=== PATIENT | female | born 1940 | race Caucasian/White ===

== ENCOUNTER → 2016-11-09 | Outpatient (CLI) | payer OTHER ==
[~2016-11-09] MED LIST: AMLO10TA2 PO; ATEN50TA2 PO; ATOR1TAB21 PO; BIOT10005 PO; BIOT50004 PO; CALC600T21 PO; CALCTAB93 PO; CELE-19 PO; COUM2.5T11 PO; FEOS45TA3 PO; HYDR25TAB PO; LOSA100T36 PO; LUTE20TA PO; MAGN400C2 PO; NATU400T PO; OMEG100011 PO; PERC5TAB6 PO; TYLE325T5 PO; VISION ESSENTIALS PO; VITA500046 PO; calcium with vit D OR
[2016-11-09 11:06] LABS: MEAN CORPUSCULAR HEMOGLOBIN 31.4 pg (27.0-33.0); MEAN CORPUSCULAR HGB CONC 33.3 g/dl (32.0-36.5); MEAN CORPUSCULAR VOLUME 94.2 fl (80.0-96.0); RED CELL DISTRIBUTION WIDTH 13.2 % (11.5-14.5); WHITE BLOOD COUNT 5.7 K/mm3 (4.0-10.0)
[2016-11-09 11:27] LABS: ALBUMIN 3.7 GM/DL (3.2-5.2); ALBUMIN/GLOBULIN RATIO 1.12 (1.00-1.93); ALKALINE PHOSPHATASE 91 U/L (45-117); ALT/SGPT 35 U/L (12-78); ANION GAP 10 MEQ/L (8-16); AST/SGOT 24 U/L (15-37); BILIRUBIN,TOTAL 0.7 MG/DL (0.2-1.0); BLOOD UREA NITROGEN 23 MG/DL (7-18); CALCIUM LEVEL 9.4 MG/DL (8.8-10.2); CARBON DIOXIDE LEVEL 29 MEQ/L (21-32); CHLORIDE LEVEL 105 MEQ/L (98-107); CREATININE FOR GFR 0.91 MG/DL (0.55-1.02); GLOMERULAR FILTRATION RATE > 60.0 (>39); GLUCOSE, FASTING 99 MG/DL (83-110); POTASSIUM SERUM 3.8 MEQ/L (3.5-5.1); SODIUM LEVEL 144 MEQ/L (136-145)
--- NOTE | 2016-11-09 11:28 | REP ---
CHEST, TWO VIEWS: HISTORY: Hypertension. COMPARISON: 02/12/2016. The lungs are clear. The heart is upper limits of normal in size. Calcified granuloma are present in the right hilum. The pulmonary vasculature is normal in appearance. Degenerative change is present in the thoracic spine. IMPRESSION: No acute disease. Signed by Hardik Fernandez MD 11/09/2016 11:47 A
--- NOTE | 2016-11-09 22:16 | ECGEPIP ---
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
== END ==
LOC: M ADMPAT 09:16
PROVIDERS: ATTEND Orthopaedic Surgery
DX: Z01.818 Encounter for other preprocedural examination (principal); G47.30 Sleep apnea, unspecified; R03.0 Elevated blood-pressure reading, without diagnosis of hypertension; M19.012 Primary osteoarthritis, left shoulder

== ENCOUNTER 2016-11-23 06:26 | Inpatient (IN) | payer OTHER ==
[2016-11-09 09:44] VITALS: BP 126/69
--- NOTE | 2016-11-19 15:24 | HPE ---
DATE OF ADMISSION: 11/23/2016 HISTORY OF PRESENT ILLNESS: This is a pleasant elderly female with continuing symptomatic left shoulder osteoarthritis. She has consented for a left total shoulder arthroplasty per Dr. Raz Rodriguez. Medical optimization achieved per Dr. Pyle. X-rays are consistent with advanced osteoarthritis. ALLERGIES: LATEX causes her a local reaction and ASPIRIN she is told not to take. CURRENT MEDICATIONS: - losartan 100 mg one by mouth every day - atenolol 50 mg one by mouth every day - amlodipine besylate 10 mg one by mouth every day - vitamin D 5000, one by mouth every day - vitamin E 4000 every day - vitamin A daily - hydrochlorothiazide 25 mg one by mouth every day - [place] 3 1,000 mg PAST MEDICAL HISTORY: Medical problem list includes symptomatic left shoulder osteoarthritis. Hypertension. PAST SURGICAL HISTORY: Includes right total shoulder arthroplasty and right hip arthroplasty. She also had a hysterectomy in 1970. Notes some history of bladder and bowel repair and since that time has had to take magnesium to prevent constipation. She wants to start magnesium the day of surgery as to prevent constipation. SOCIAL HISTORY: Denies smoking, ethanol intake or illicit drugs. FAMILY HISTORY: Family history is positive for arthritis, heart disease, diabetes, and rheumatoid arthritis. REVIEW OF SYSTEMS: Denies chest pain, shortness of breath, dyspnea on exertion, fever, chills, malaise, upper respiratory urinary tract symptoms. PHYSICAL EXAMINATION Height 5 foot, 1-1/2 inches, weight 175 pounds, temperature 98.8. Blood pressure 120/70, pulse 63, respiration 12, BMI 32.5. She is a pleasant overweight white female in no acute distress. She is alert and oriented times three. Mood and affect are appropriate. She is ambulating without overt antalgic assistance or gait disturbance. Normal cephalic. Neck: Supple. Negative JVD or bruits. Left shoulder this is a benign noninfectious looking left upper extremity with limited shoulder range of motion and pain throughout. Radial pulse 2+. Brisk capillary refill Chest rises symmetrically. Lungs: Clear to auscultation. Abdomen: Soft, nontender times four with sound is intact. Lower extremities: No gross deformity. Chest x-ray shows no acute disease as read by Dr. Fernandez on 11/09/2016. EKG shows sinus bradycardia with sinus arrhythmia and first-degree AV block read by Dr. Peters on 11/09/2016. Her labs were reviewed. Nasal and sinus culture showed normal ambrocio. BUN was elevated 23. Otherwise labs were unremarkable. IMPRESSION: 1. Symptomatic left shoulder osteoarthritis: 2. Patient consented for left total shoulder arthroplasty per Dr. Raz Rodriguez. 3. Medical optimization per Dr. Pyle. 4. On-call to the OR 1 gram IV Kefzol in OR. 5. Sequential compression devices (SCD) and thromboembolic deterrent stockings (TEDS) in OR. 6. The patient is requesting magnesium times two, day of surgery postoperatively for prevention of constipation. MTDD
[~2016-11-23] VITALS: Ht 154.9 cm; Wt 77.0 kg
[2016-11-23] VITALS (7 sets, daily range): BP systolic 123–152; BP diastolic 63–73
[2016-11-23] MEDS ORDERED: ACETAMINOPHEN 500 MG TAB PO ONE (06:45)
[2016-11-23] MEDS: LR 1,000 ML IV SCH ×4 (07:34→20:05)
[2016-11-23] MEDS ORDERED: EPINEPHrine INJ 1 MG/ML 1ML VIAL/AMP As Ordered ONE (08:33)
[2016-11-23] MEDS ORDERED: ceFAZolin 1GM INJ (J0690) As Ordered ONE (08:33)
[2016-11-23] MEDS ORDERED: MIDAZOLAM INJ 2 MG/2 ML VIAL (J2250) As Ordered ONE (09:22)
[2016-11-23] MEDS ORDERED: PROPOFOL 200 MG/20 ML VIAL As Ordered ONE (09:22)
[2016-11-23] MEDS ORDERED: fentaNYL 100 MCG/2 ML INJECTION (J3010) As Ordered ONE (09:22)
[2016-11-23] MEDS ORDERED: LIDOCAINE 2% INJ 100 MG/5 ML SDV (FOR ANES.) As Ordered ONE (09:22)
[2016-11-23] MEDS ORDERED: ROCURONIUM BROMIDE 50 MG/5 ML VIAL As Ordered ONE (09:22)
[2016-11-23] MEDS ORDERED: ceFAZolin 1GM INJ (J0690) XX ONE (09:55)
[2016-11-23] MEDS ORDERED: EPINEPHrine 1MG/ML INJ 30ML MD-VIAL XX ONE (09:55)
[2016-11-23] MEDS ORDERED: dexameTHASONE 4 MG/ML 1ML VIAL (J1100) As Ordered ONE ×2 (09:58)
[2016-11-23] MEDS ORDERED: ONDANSETRON 4MG/2ML VIAL (J2405) As Ordered ONE (10:50)
[2016-11-23] MEDS ORDERED: GLYCOPYRROLATE INJ 0.2 MG/ML 2 ML VIAL As Ordered ONE (10:50)
[2016-11-23] MEDS ORDERED: HYDROmorphone HCL 2 MG/ML 1ML VIAL (J1170) As Ordered ONE (10:51)
[2016-11-23] MEDS ORDERED: NEOSTIGMINE 1MG/ML 5 ML SYRINGE (J2710) As Ordered ONE (10:51)
[2016-11-23] MEDS ORDERED: VANCOMYCIN 1000 MG/20 ML VIAL (J3370) As Ordered ONE (11:21)
[2016-11-23] MEDS ORDERED: VANCOMYCIN 1000 MG/20 ML VIAL (J3370) XX ONE (11:23)
[2016-11-23] MEDS ORDERED: MORPHINE PCA 1MG/ML 100ML CADD As Ordered ONE (12:33)
[2016-11-23] MEDS ORDERED: FLEET ENEMA PR PRN (12:45)
[2016-11-23] MEDS ORDERED: LR 1,000 ML IV SCH (12:45)
[2016-11-23] MEDS ORDERED: fentaNYL 100 MCG/2 ML INJECTION (J3010) IV PRN (12:45)
[2016-11-23] MEDS ORDERED: MOM 30ML SUSPENSION UDC PO PRN (12:45)
[2016-11-23] MEDS ORDERED: NALOXONE INJ 0.4 MG/1 ML VIAL (J2310) IV PRN (12:45)
[2016-11-23] MEDS ORDERED: EPIDURAL/PCA KEYS XX PRN (12:45)
[2016-11-23] MEDS ORDERED: NALBUPHINE HCL 10 MG/ML AMP (J2300) IV PRN (12:45)
[2016-11-23] MEDS ORDERED: ACETAMINOPHEN TAB 650MG DOSE (2X325MG) PO PRN (12:45)
[2016-11-23] MEDS ORDERED: ONDANSETRON 4MG/2ML VIAL (J2405) IV PRN ×2 (12:45)
[2016-11-23] MEDS ORDERED: diphenhydrAMINE INJ 50MG/ML VIAL (J1200) IV PRN (12:45)
[2016-11-23] MEDS ORDERED: MORPHINE PCA 1MG/ML 100ML CADD IV PRN (12:45)
[2016-11-23] MEDS: VITAMIN D 1,000 INTERNATIONAL UNITS TABLET PO SCH (15:05)
[2016-11-23] MEDS: hydroCHLOROthiazide 25 MG TAB PO SCH (15:06)
[2016-11-23] MEDS: VITAMIN E 400 INTERNATIONAL UNITS CAP PO SCH (15:06)
[2016-11-23] MEDS: ATORVASTATIN 20 MG TAB PO SCH (15:06)
[2016-11-23] MEDS: CelecoXIB (CeleBREX) 100 MG CAP PO SCH (15:06)
--- NOTE | 2016-11-23 21:02 | CR.PDOC ---
[facility] Consultation Consultation DATE OF CONSULTATION: 11/23/16 - 900PM REASON FOR CONSULTATION/CHIEF COMPLAINT: Presented to the [facility] for an elective left total shoulder arthroplasty because of persistent pain HISTORY OF PRESENT ILLNESS: Patient is a 76 year old female with a PMHx of HTN, DLP and osteoarthritis who presented to [facility] for a scheduled elective arthroplasty of her left shoulder. She noted that she has been having worsening pain of her left shoulder and was not able to have it controlled by medical management alone. ALLERGIES: Please see below. HOME MEDICATIONS: Please see below. 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 [employer] REVIEW OF SYSTEMS: Constitutional: Denies weight loss, change in appetite, or recent trauma Eyes: No visual changes or eye pain Ears, Nose, Throat: Denies nose bleeds, or difficulty swallowing Cardiovascular: Denies chest pain, sweating, or orthopnea Respiratory: Denies cough, wheezing, or shortness of breath GI: Jack nausea, vomiting, abdominal pain, diarrhea, Positive constipation : Denies pain with urination or frequency Musculoskeletal: Denies joint pain or swelling Neuro / Psych: Denies muscle weakness or sensory loss Skin: No skin rashes noted All other review of systems negative; otherwise stated in history of present illness PHYSICAL EXAMINATION: - Vitals: BP 152/73, HR 82, RR 16, Sat 96%NC3L, Temp 97.3F - General: Lying in bed, No acute distress, Speaking in full sentences, AAOx3 - HEENT: NC, AT, PERRLA, EOMI - CVS: RRR, +S1S2, - Murmurs / rubs / gallops - Lungs: Fair air entry bilaterally, Clear to auscultation, No wheezing / rales / rhonchi - Abdomen: Soft, Non-distended, Non-tender, + Bowel sounds x 4 - Extremities: + PPx4, No lower extremity edema, No calf tenderness, Left shoulder in sling - Neuro: No focal motor or sensory deficit - Skin: No visible rashes ~ LABORATORY DATA: Please see below. ASSESSMENT/PLAN: Left shoulder pain likely 2/2 osteoarthritis s/p total arthroplasty POD#0 - Presented with persistent should pain without relief with medical management - History of right shoulder replacement - Pain management by orthopedic team Hypertension - Blood pressure well controlled at this time - Will restart home BP meds with holding parameters DLP - c/w atorvastatin Osteoarthritis - c/w celecoxib DVT prophylaxis - Managed by orthopedic team Vital Signs/I&O Vital Signs Date Time Temp Pulse Resp B/P Pulse Ox O2 Delivery O2 Flow Rate FiO2 11/23/16 18:15 97.3 82 16 152/73 96 Nasal Cannula 3.0 Allergies Coded Allergies: Latex (Verified Allergy, Unknown, 11/09/16) Milk-related Compounds (Verified Allergy, Unknown, 11/09/16) TAPE (Verified Allergy, Unknown, 11/09/16) Aspirin (Verified Adverse Reaction, Mild, GI UPSET, 11/09/16) PER ALICIA IN PRE-OP Home Medications Scheduled (Magnesium) 400 Mg Cap 400 MG PO DAILY (Reported) ([Vision Essentials]) 4 TAB PO DAILY (Reported) Alpha Tocopheryl Acid Succinat (Vitamin E) 400 Unit Tab 400 UNIT PO DAILY ( Reported) Amlodipine Besylate (Amlodipine Besylate) 10 Mg Tab 10 MG PO DAILY (Reported) Atenolol (Atenolol) 50 Mg Tab 50 MG PO QHS (Reported) Atorvastatin Calcium (Atorvastatin Calcium) 20 Mg Tab 20 MG PO DAILY (Reported ) Calcium Carbonate (Calcium) 600 Mg Tab 600 MG PO BID (Reported) Celecoxib (Celebrex) 200 Mg Cap 200 MG PO DAILY (Reported) Cholecalciferol (Vitamin D) 5,000 Unit Tab 5,000 UNIT PO DAILY (Reported) Hydrochlorothiazide (Hydrochlorothiazide) 25 Mg Tab 25 MG PO DAILY (Reported) Losartan Potassium (Losartan Potassium) 100 Mg Tab 100 MG PO DAILY (Reported) [place] 3 Polyunsat Fatty Acids ([place] 3 1000 mg) 1 Cap Cap 4 CAP PO DAILY ( Reported) Vegetable Enzyme (Lutein) 20 Mg Tab 20 MG PO DAILY (Reported) Miscellaneous Medications Biotin (Vitamin H) (Biotin) 1,000 Mcg Tab #5 1,000 MCG PO (Reported) ONUR MARTINEZ MD Nov 23, 2016 21:02
[2016-11-24] MEDS: LR 1,000 ML IV SCH ×5 (00:22→16:05)
--- NOTE | 2016-11-24 00:24 | RO ---
DATE OF PROCEDURE: 11/23/2016 PREPROCEDURE DIAGNOSIS: Left shoulder degenerative arthritis. POSTPROCEDURE DIAGNOSIS: Left shoulder degenerative arthritis. PROCEDURE: Left total shoulder arthroplasty using a size 10 Global Unite stem with a 44 +18 head and a 44 glenoid. SURGEON: Dr. Mychal Rodriguez BUDGET TECHNICIAN: Mr. Rohit Guajardo ANESTHESIA: General endotracheal tube anesthesia. COMPLICATIONS: None. ESTIMATED BLOOD LOSS: 150 mL. DESCRIPTION OF PROCEDURE: Antibiotics were given intravenously preoperatively, then successful general endotracheal tube anesthetic was established. A Garnett catheter was placed and removed at the end of the case. A scapular bump was placed under the left shoulder. She was brought to the edge of the table, the head stabilized, a large bolster used to hold her to the table. She was in the supine position. Padded Zhu stand utilized. Left shoulder area was prepped and draped in the usual sterile fashion. Then, at the appropriate time-out, a longitudinal incision was made for a deltopectoral approach. Bovie cautery was used to coagulate vessels. We identified the cephalic vein, retracted it. Medially, making sure that we coagulated the lateral perforators, and incised through the clavipectoral fascia, reflected the conjoined tendon medially, deltoid laterally, identified the biceps tendon, tenodesed it to the pectoralis tendon after I released the upper 1 to 2 cm. The biceps tendon was then tenotomized and then the sheath opened all the way up into and through the rotator cuff interval superiorly. Curved osteotome was then used to perform an osteotomy of the subscapularis tendon insertion into the lesser tuberosity, tagging sutures placed and then we reflected the subscapularis medially. Then, we externally rotated the humeral head such that we could dislocate it and remove the osteophytes from the anterior and the inferior and as far posteriorly as we could get. We then used the cutting guide to brad with a Bovie our angle and then freehand cut the proximal humeral head using a Crego retractor against the posterior rotator cuff. That measured we thought about a 48, given that we put the 48 in the opposite right shoulder. We then performed a capsular incision off the medial glenoid, then inferiorly we were very careful to protect the axillary nerve by reflecting the soft tissues inferiorly and then identified this capsule inferiorly and released that off the glenoid and then also off the proximal humeral neck as we externally rotated to get adequate exposure of the glenoid. The Sonnabend retractor was placed posteriorly, dinner fork anteriorly, blunt Hohmann superiorly. Then we removed all the labral tissue in 360 degrees around the glenoid and made sure we had adequate release of the capsule anteriorly, such that I could get my finger down medial along the scapula. I then used the sizing device. I first thought the 48 would fit, but it was a bit big and thus we actually eventually settled on the 44, drilling the central hole and then placed the small reamer and then reamed the glenoid just down to the subchondral bone such that it was smooth. Then, we drilled the center hole and then placed the drill guide to make the three holes, the single hole superiorly and the two holes inferiorly, anteriorly and posteriorly. The trial 44 fit well and thus, at this point, we had the cement mixed on the back table and then some of the reamings from the humeral head were placed into the fins of the real prosthesis and then we copiously pulsatile lavage irrigated out the glenoid, then impacted the cement into the three peripheral holes with my finger and making sure there was no residual cement on the face of the glenoid. Then, impacted the real glenoid implant. Then, we exposed the proximal humerus again and then we began reaming, beginning with a 6 mm reamer up to a 10 mm reamer, which equaled the diameter of the stem we used on the opposite shoulder. Used the alignment gonzalo at this point and made sure our version was appropriate at between 20 and 30 degrees, based on the alignment of the forearm with the elbow flexed. Then, we placed the trial broach and then the 44 humeral head, set the eccentricity at about the 9:30 position and then reduced the shoulder. We trialed with a 44 +18 and that actually felt very good. I could just translate her a little bit posteriorly and would spring back nicely; thus, I thought that was the appropriate size. We did a +18 on the opposite side as well. Thus, I removed the broach and then drilled four holes in the lesser tuberosity and then passed the Ethibond sutures, and I made sure that the loops of the Ethibonds would pass around the stem. I then copiously irrigated out the humeral shaft and placed the real stem and then head, placed with appropriate eccentric positioning. We then reduced the shoulder, then the sutures were brought around and then I used Karl-Kulwant suture configuration medial to the wafer of bone of the subscapularis and then tied all four Ethibonds such that the subscapularis was brought into its anatomic position easily, she had 60 degrees of external rotation on the table without undue tension. I did close the rotator cuff interval above with an Ethibond suture as well. Prior to doing this, I copiously irrigated out the shoulder joint and then placed a half of a gram of vancomycin intra-articularly and then the other half of the vancomycin powder was placed above the subscapularis and then we closed the subdermal tissues with interrupted #2-0 PDS sutures, skin was closed with cindy, covered by Adaptic dry sterile bulky dressing. She was then placed into a sling, then awakened from general endotracheal tube anesthesia after having tolerated the procedure well, transferred to the recovery room in stable condition. There were no intraoperative complications. Addendum: Rohit Guajardo, my assistant technician, was critical to the success of the procedure for this very difficult operation by helping to manipulate the arm, helping to hold it and retract the arm as necessary for me to perform the operation smoothly and efficiently, helped to close the wound, helped to position the patient, amongst many other tasks throughout the operation. DAVID
[2016-11-24 02:00] VITALS: BP 135/78
[2016-11-24] MEDS ORDERED: ONDANSETRON 4 MG TAB (S0181) PO PRN (05:30)
[2016-11-24] MEDS ORDERED: PERCOCET 5MG/325MG TAB PO PRN (05:30)
[2016-11-24] MEDS ORDERED: PERC5TAB6 PO (05:39)
[2016-11-24 06:00] VITALS: BP 130/63
[2016-11-24 06:50] LABS: MEAN CORPUSCULAR HEMOGLOBIN 31.4 pg (27.0-33.0); MEAN CORPUSCULAR HGB CONC 34.1 g/dl (32.0-36.5); MEAN CORPUSCULAR VOLUME 92.2 fl (80.0-96.0); RED CELL DISTRIBUTION WIDTH 12.5 % (11.5-14.5); WHITE BLOOD COUNT 9.7 K/mm3 (4.0-10.0)
[2016-11-24 07:01] LABS: INR 1.05
[2016-11-24 07:06] LABS: ANION GAP 9 MEQ/L (8-16); BLOOD UREA NITROGEN 16 MG/DL (7-18); CALCIUM LEVEL 8.8 MG/DL (8.8-10.2); CARBON DIOXIDE LEVEL 29 MEQ/L (21-32); CHLORIDE LEVEL 104 MEQ/L (98-107); GLOMERULAR FILTRATION RATE > 60.0 (>39); GLUCOSE, FASTING 134 MG/DL (83-110); MAGNESIUM LEVEL 2.1 MG/DL (1.8-2.4); POTASSIUM SERUM 3.6 MEQ/L (3.5-5.1); SODIUM LEVEL 142 MEQ/L (136-145)
[2016-11-24] MEDS ORDERED: amLODIPine 10 MG TAB PO SCH ×2 (09:00)
[2016-11-24] MEDS ORDERED: hydroCHLOROthiazide 25 MG TAB PO SCH (09:00)
[2016-11-24] MEDS ORDERED: ATENOLOL 50 MG TAB PO SCH ×2 (09:00→21:00)
[2016-11-24] MEDS ORDERED: LOSARTAN 50 MG TAB PO SCH ×2 (09:00)
[2016-11-24] MEDS: hydroCHLOROthiazide 25 MG TAB PO SCH (09:27)
[2016-11-24] MEDS: VITAMIN E 400 INTERNATIONAL UNITS CAP PO SCH (09:27)
[2016-11-24] MEDS: VITAMIN D 1,000 INTERNATIONAL UNITS TABLET PO SCH (09:27)
--- NOTE | 2016-11-24 09:27 | REP ---
Left shoulder series: Three views. History: Recheck placement. No comparison radiographs available. Findings: The left humeral head is replaced and in good position. There is postoperative radiolucency in the glenoid with a metallic staple like density in the glenoid. Overlying skin cindy are seen. The glenohumeral and acromioclavicular joints are normally aligned. Impression: Status post left humeral head replacement. Signed by Luis Kowalski MD 11/24/2016 10:30 A
[2016-11-24 09:28] VITALS: BP 130/63
[2016-11-24] MEDS: CelecoXIB (CeleBREX) 100 MG CAP PO SCH (09:28)
[2016-11-24] MEDS: PERCOCET 5MG/325MG TAB PO PRN ×2 (09:29→14:01)
[2016-11-24] MEDS: ATORVASTATIN 20 MG TAB PO SCH (09:30)
[2016-11-24 10:00] VITALS: BP 153/83
[2016-11-24] MEDS ORDERED: dexameTHASONE 10 MG/1 ML VIAL PRES.FREE (J1100) ONE (12:00)
[2016-11-24] MEDS ORDERED: LIDOCAINE 1% MDV 20ML VIAL ONE (12:00)
[2016-11-24] MEDS ORDERED: ROPIvacaine 0.5% 30 ML INJECTION (J2795) ONE (12:00)
[2016-11-24 14:00] VITALS: BP 138/71
--- NOTE | 2016-11-24 18:41 | IPN ---
DATE: 11/24/2016 Ms. Grady is feeling well this morning. Pain is reasonably well controlled. She had her second shoulder surgery. No complaints of pain, chest pain, shortness of breath/. VITAL SIGNS: Temperature 97.5, pulse 95, respiratory rate 18, blood pressure 130/63, 95% on room air. I O notable for positive fluid balance of 1790. No bowel movements noted. She is awake and appropriately interactive. Pleasantly conversive. Breathing is symmetrical and rested. Abdomen soft, doughy, non-tender. Left shoulder is cleanly dressed. White cell count 9.7, hemoglobin 12.1, INR of 1.05. BUN 16, creatinine 0.9, magnesium 2.1. MY ASSESSMENT IS FOLLOWS: This is a 76-year-old status post left shoulder arthroplasty postoperative day #1. PLAN: 1. Orthopedic. Pain and deep vein thrombosis prophylaxis, GI prophylaxis, activity and eventual discharge per orthopedics. 2. Patient has obstructive sleep apnea. Her continuous positive airway pressure (CPAP) machine is at bedside. 3. Patient has hypertension. Blood pressure is reasonably well controlled for the current setting. 4. Patient has hyperlipidemia. Continue with atorvastatin in the postoperative setting. 5. Patient has osteoarthritis and is on a DUFF-2 inhibitor.
--- NOTE | 2016-11-30 16:27 | DSES ---
DATE OF ADMISSION: 11/23/2016 DATE OF DISCHARGE: 11/24/2016 ATTENDING PHYSICIAN: Dr. Mychal Rodriguez ADMITTING DIAGNOSIS: Left shoulder osteoarthritis. OTHER DIAGNOSES: 1. Hypertension. 2. Hyperlipidemia. 3. Obstructive sleep apnea. DISCHARGE DIAGNOSIS: Left shoulder osteoarthritis status post left shoulder arthroplasty. HISTORY OF PRESENT ILLNESS: The patient is a pleasant female with symptomatic left shoulder osteoarthritis. She has no improvement with symptoms with conservative management. She is consented for a left shoulder arthroplasty by Dr. Rodriguez. The patient was admitted on the day of surgery for this elective procedure. OPERATION PERFORMED: Left shoulder arthroplasty. HOSPITAL COURSE: The patient underwent a left shoulder arthroplasty under general anesthesia. Surgery was uneventful and hospital course was without complication. The patient will continue her preoperative medications and diet. She will wear a sling as directed. The patient will followup in our office in approximately 3 days for a wound check. The patient is encouraged to contact our office sooner if there is any increased pain, drainage, bleeding, redness, numbness and tingling in her extremity, fever greater than 101 degrees, or any other concerns. Please see the medical record for further details.
== END 2016-11-24 17:45 | disposition home or self-care (01) | DRG 483 ==
LOC: M OR 06:26 → M MS5PR 13:35
PROVIDERS: ADMIT Orthopaedic Surgery; ATTEND Orthopaedic Surgery
PROC: 0RRK00Z Replacement of Left Shoulder Joint with Reverse Ball and Socket Synthetic Substitute, Open Approach (ICD-10-PCS; principal; 2016-11-23 08:30)
DX: M19.012 Primary osteoarthritis, left shoulder (principal); I10 Essential (primary) hypertension; E78.5 Hyperlipidemia, unspecified; G47.33 Obstructive sleep apnea (adult) (pediatric); Z91.040 Latex allergy status; Z88.6 Allergy status to analgesic agent; Z79.899 Other long term (current) drug therapy; Z96.641 Presence of right artificial hip joint; Z96.611 Presence of right artificial shoulder joint; Z90.710 Acquired absence of both cervix and uterus; Z83.3 Family history of diabetes mellitus; Z82.49 Family history of ischemic heart disease and other diseases of the circulatory system; Z82.61 Family history of arthritis; Z99.89 Dependence on other enabling machines and devices

== ENCOUNTER → 2018-12-08 | Outpatient (CLI) | payer OTHER ==
[~2018-12-08] MED LIST changes: -AMLO10TA2 PO; +AMLO10TA5 PO; -BIOT10005 PO; +BIOT10008 PO; -CALC600T21 PO; +CALC600T60 PO; -CELE-19 PO; +CELE1CAP4 PO; -COUM2.5T11 PO; +COUM2.5T17 PO; -LOSA100T36 PO; +LOSA100T50 PO; +PERC5TAB12 PO; -PERC5TAB6 PO
--- NOTE | 2018-12-25 01:04 | ECWPNPC ---
PATIENT NAME: WENDY MATHIAS V : 1940 GENDER: FEMALE VISIT DATE: 12/08/2018 DISCHARGE DATE: 12/08/18 1647 VISIT LOCKED DATE TIME: PHYSICIAN: MACEY HARDEN MD RESOURCE: MACEY HARDEN MD REASON FOR APPOINTMENT 1. BACK PAIN HISTORY OF PRESENT ILLNESS FALL RISK SCREENING: SCREENING : NO FALLS IN THE PAST YEAR. PAIN SCREENING: PATIENT HAS A COMPLAINT OF ACUTE OR CHRONIC PAIN :YES 78 YEAR OLD FEMALE PATIENT WITH A HISTORY OF CHRONIC LOW BACK PAIN. THE PATIENT DESCRIBES THE PAIN ACHING, STABBING, SHOOTING, AND CONTINUOUS WITH A PAIN SCORE OF 8-10/10 DEPENDING ON PHYSICAL ACTIVITY. THE PATIENT SAYS HER PAIN IS MAINLY LOCATED IN HER LOW BACK AREA AND IT SOMETIMES RADIATES DOWN HER RIGHT LEG. THE PATIENT SAYS THAT SOMETIMES SHE HAS DIFFICULTY WALKING DUE TO THE PAIN IN HER RIGHT LEG. THE PATIENT SAYS SHE HAS DIFFICULTIES DOING DAILY ACTIVITIES SUCH COOKING, CLEANING, AND GETTING GROCERIES DUE TO THIS PAIN. PATIENT DENIES UNEXPLAINABLE WEIGHT LOSS, FEVER, CHILLS, NEW CHANGES ON HER URINARY OR BOWEL CONTROL. CURRENT MEDICATIONS TAKING LOSARTAN POTASSIUM 100 MG TABLET 1 TABLET ORALLY ONCE A DAY TAKING AMLODIPINE BESYLATE 10 MG TABLET 1 TABLET ORALLY ONCE A DAY TAKING HYDROCHLOROTHIAZIDE 25 MG TABLET 1 TABLET IN THE MORNING ORALLY ONCE A DAY TAKING ATENOLOL 50 MG TABLET 1 TABLET ORALLY ONCE A DAY TAKING ATORVASTATIN CALCIUM 20 MG TABLET 1 TABLET ORALLY ONCE A DAY TAKING CELECOXIB 200 MG CAPSULE 1 CAPSULE WITH FOOD ORALLY ONCE A DAY TAKING VITAMIN D-3 5000 UNIT TABLET 1 TABLET ORALLY ONCE A DAY TAKING CALCIUM 1 TAB ORAL TAKING MAGNESIUM 100 MG TABLET 4 TABLETS WITH A MEAL ORALLY ONCE A DAY TAKING LUTEIN 20 - CAPSULE ORALLY TAKING VITAMIN E 400 UNIT CAPSULE 1 CAPSULE ORALLY ONCE A DAY TAKING VISION VITAMINS - TABLET ORALLY TAKING OMEGA 3 1000 MG CAPSULE 1 CAPSULE ORALLY ONCE A DAY TAKING ACETAMINOPHEN ER 650 MG TABLET EXTENDED RELEASE 2 TABLETS NEEDED ORALLY EVERY 8 HRS TAKING ACETAMINOPHEN PM 500-25 MG TABLET 1 TABLET AT BEDTIME NEEDED ORALLY ONCE A DAY MEDICATION LIST REVIEWED AND RECONCILED WITH THE PATIENT PAST MEDICAL HISTORY HYPERTENSION CHRONIC DRY EYE PSORIASIS ARTHRITIS HYPERLIPIDEMIA OBESITY CLIFFORD ALLERGIES LACTOSE: NAUSEA/VOMITING: ALLERGY SURGICAL HISTORY HYSTERECTOMY BLADDER REPAIR BOWEL SURGERY RIGHT HIP FAMILY HISTORY FATHER: , DIAGNOSED WITH HYPERTENSION, HEART DISEASE MOTHER: ALIVE, DIAGNOSED WITH CANCER SISTER - DUE TO DM. SOCIAL HISTORY GENERAL: TOBACCO USE ARE YOU A:NONSMOKER DIET: REGULAR. NEW PATIENT PAIN DIARY PATIENT DESCRIBES PAIN :ACHING, HAVE IT ALL THE TIME, STABBING, SHOOTING FROM 0-10, WHAT LEVEL IS YOUR PAIN TODAY?8 PRECIPITATING FACTORS PAIN HAS INCREASED OVER LAST TWO YEARS, WALKING INCREASES PAIN. HOUSEWORK, STANDING IN PLACE, BENDING, LIFTING, SWEEPING AND MOPPING ALLEVIATING FACTORS SITTING WITH LEGS ELEVATED, USING CANE, WEARING BACK SUPPORT AND LYING DOWN IMPACT ON FUNCTION DECREASED ABILITY TO DO DAILY ACTIVITIES IS THERE A CHANCE YOU COULD BE ?NO HAVE YOU BEEN SICK IN THE LAST WEEK (COLD, COUGH, FEVER, FLU, ETC)NO DO YOU TAKE ANY BLOOD THINNERS?NO DO YOU HAVE ANY RASHES OR OPEN SORES?NO ANY CHANGE IN BOWEL OR BLADDER CONTROL?NO ARE YOU ALLERGIC TO SHELLFISH OR IV DYE?NO ARE YOU DIABETIC?NO DO YOU HAVE A PACEMAKER OR DEFIBRILLATOR?NO ANY NEW PROBLEMS WITH MEDICINES OR NEW ALLERGIESNO ANY NEW PATTERNS OF PAIN OR NUMBNESS?YES ANY CHANGE IN YOUR MEDICAL CONDITION?NO HAVE YOU FALLEN IN THE LAST 6 MONTHS?NO DO YOU USE ANY TYPE OF TOBACCO (SMOKE, SMOKELESS, CHEW, ETC.)NO ARE YOU ABUSED, NEGLECTED, OR IN AN UNSAFE ENVIRONMENT?NO DO YOU HAVE THOUGHTS OF HURTING YOURSELF OR SOMEONE ELSE?NO DO YOU NEED ANY PRESCRIPTIONS?NO DO YOU HAVE ANY OTHER QUESTIONS OR CONCERNS?NO PAIN CLINIC PFS, CLERGY, PUBLIC HEALTH REFERRALS WAS THE PROVIDER NOTIFIED OF ANY PERTINENT INFO?YES HAS THE PATIENT BEEN EDUCATED REGARDING HIS/HER PLAN OF CARE?YES HAS THE PATIENT BEEN EDUCATED REGARDING PAIN, THE RISK FOR PAIN, THE IMPORTANCE OF EFFECTIVE PAIN MANAGEMENT, AND THE PAIN ASSESSMENT PROCESS?YES ADVANCE DIRECTIVE ADVANCE DIRECTIVE DISCUSSED WITH PATIENT:YES HCP ENA MATHIAS HOSPITALIZATION/MAJOR DIAGNOSTIC PROCEDURE NO HOSPITALIZATION HISTORY. REVIEW OF SYSTEMS REVIEWED BY: PROVIDER: MACEY HARDEN MD . CONSTITUTIONAL: ANY CHANGE IN YOUR MEDICAL CONDITION? YES, PT STATES THAT SHE HAS PSORIASIS PATCH ON BACK ON HEAD . CHILLS NO . FEVER NO . INFECTION: DO YOU HAVE NEW INFECTIONS? NO . DO YOU HAVE HISTORY OF MRSA? NO . MUSCULOSKELETAL: ANY NEW PATTERNS OF PAIN OR NUMBNESS? YES, PAIN AND NUMBNESS IN LEFT LEG AND RADIATES DOWN TOES. PT STATES THAT SHE IS ALSO HAVING NUMBNESS IN BILATERAL ARMS - PRIMARILY WHILE SLEEPING. . SYTEMIC LUPUS NO . GASTROENTEROLOGY: ANY NEW CHANGE IN BOWEL CONTROL? NO . BARRETTS ESOPHAGUS NO . CIRRHOSIS NO . HEPATITIS NO . LIVER FAILURE NO . ACID REFLUX NO . UNEXPLAINED WEIGHT LOSS NO . GENITOURINARY: ANY NEW CHANGE IN BLADDER CONTROL? NO . IS THERE A CHANCE YOU COULD BE ? NO . HEMATOLOGY/LYMPH: DO YOU TAKE ANY BLOOD THINNERS? (FOR EXAMPLE- COUMADIN, PLAVIX, AGGRENOX, PLATEL, PRADAXA, OR XARELTO) NO . WHEN WAS YOUR LAST DOSE? DATE: TIME: . LOW PLATELET COUNT NO . SICKLE CELL DISEASE NO . VON WILLIEBRANDS NO . FACTOR V LEIDEN NO . THALLASEMIA NO . ANEMIA NO . EASY BRUISING NO . NEUROLOGY: HAVE YOU FALLEN IN THE PAST 12 MONTHS? NO . ANY NEW EXTREMITY NUMBNESS OR WEAKNESS? YES, ARMS AND LEGS . HEAD INJURY NO . DEMENTIA NO . CEREBRAL PALSY NO . MULTIPLE SCLEROSIS NO . DIZZINESS NO . HEADACHE NO . STROKES NO . VERTIGO NO . CARDIOLOGY: DO YOU HAVE A PACEMAKER OR DEFIBRILLATOR? NO . ANGINA NO . HEART ATTACK NO . HEART SURGERY NO . CONGESTIVE HEART FAILURE/FLUID OVERLOAD NO . CHEST PAIN NO . HIGH BLOOD PRESSURE NO . IRREGULAR HEART BEAT NO . RESPIRATORY: HAVE YOU BEEN SICK IN THE PAST WEEK? NO . FEVER NO . FLU LIKE SYMPTOMS? NO . CPAP NO . BYPAP NO . ASTHMA NO . EMPHYSEMA NO . CHRONIC LUNG DISEASES NO . SHORTNESS OF BREATH ON EXERTION NO . COUGH NO . SNORING NO . INTEGUMENTARY: DO YOU HAVE ANY RASHES OR OPEN SORES? NO . ALLERGIC/IMMUNO: ARE YOU ALLERGIC TO IV DYE? NO . ANY NEW ALLERGIES? NO . PSYCHIATRIC: DO YOU HAVE THOUGHTS OF HURTING YOURSELF OR SOMEONE ELSE? NO . ARE YOU ABUSED, NEGLECTED, OR IN AN UNSAFE ENVIRONMENT? NO . ENDOCRINOLOGY: ARE YOU DIABETIC? NO . THYROID DISORDER NO . OTHER: DO YOU NEED ANY PRESCRIPTIONS? NO . IF YES, PLEASE LIST: ____ . ANY NEW PROBLEMS WITH YOUR MEDICATIONS? NO . WHEN DID YOU LAST EAT? ____ . WHEN DID YOU LAST DRINK? ____ . WHAT DID YOU LAST DRINK? ____ . NAME OF PERSON DRIVING YOU HOME? ____ . DO YOU HAVE ANY OTHER QUESTIONS OR CONCERNS YES, PT STATES THAT SHE HAS A BUMP ON THE BOTTOM OF LEFT AND RIGHT FEET, CONCERNED. . VITAL SIGNS WT 173.4 LBS, HT 61 IN, BMI 32.76 INDEX, BP 145/70 MM HG, HR 55 /MIN, RR 16 /MIN, TEMP 98.5 F, OXYGEN SAT % 96%, SAFE IN ENV? (Y/N) Y, NA INITIALS NC 14:22, REVIEWED BY: KAL. EXAMINATION GENERAL EXAMINATION: PATIENT IS ALERT O X 3 AND COOPERATIVE. LUNGS CLEAR, TO AUSCULTATION. HEART: NO MURMURS OR GALLOPS; FACIAL CRANIAL NERVES ARE GROSSLY NORMAL. GOOD SYMMETRY OF FACIAL MUSCLE MOVEMENT. NORMAL VISUAL KELLY. TENDERNESS OVER THE RIGHT AND LEFT SACROILIAC JOINTS. FABERE TEST IS POSITIVE FOR LEFT SACROILIAC JOINT DYSFUNCTION. MRI OF THE LUMBAR SPINE DONE ON 07/09/2017 SHOWS FACET ARTHROPATHY CHANGES AND STENOSIS AT MULTIPLE LEVELS. 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 MATHIAS'S PAIN MANAGEMENT CASE. DUE TO THE SACROILIAC JOINT DYSFUNCTION, I WOULD LIKE TO MOVE FORWARD WITH A BILATERAL SACROILIAC JOINT BLOCK AT THIS TIME. WE DISCUSSED THE BENEFITS, RISKS, AND ALTERNATIVES OF THE INJECTION AND THE PATIENT WOULD LIKE TO PROCEED. THE PATIENT WILL FOLLOW UP 3 WEEKS AFTER THE INJECTION. INSTRUCTIONS WERE GIVEN, QUESTIONS WERE ANSWERED, PATIENT REPORTS UNDERSTANDING AND AGREES WITH THE PLAN. I, NELLY ORTIZ, DOCUMENTED THE ABOVE INFORMATION ACTING A SCRIBE FOR DR. HARDEN. I HAVE REVIEWED THE ABOVE DOCUMENT, WRITTEN BY NELLY JOYIBJoy AND I VERIFY THAT IT IS ACCURATE. DEAR DR. CONRAD:THANK YOU FOR YOUR KIND REFERRAL OF MRS. MATHIAS. IF YOU WANT TO DISCUSS HER CASE WITH ME PLEASE CALL ME AT THE PAIN CENTER AT [phone]. SINCERELY,MACEY HARDEN, [facility]. PRE[facility] MEDICINE PAIN CLINIC TEACHING: PROCEDURE TEACHING SIJ PROCEDURE REVIEWED, PRE PROCEDURE INSTRUCTIONS PRINTED AND REVIEWED. PT VERBALIZES UNDERSTANDING. 12/08/18 1700 LAS. PROCEDURE CODES FA211 ESTABILISHED PATIENT [facility] FACILITY CHARGE G8427 CURRENT MEDS W/DOSAGES DOCUMENTED G8730 PAIN ASSESS POS TOOL F/U PLAN DOC DISPOSITION & COMMUNICATION FOLLOW UP 3 WEEKS ELECTRONICALLY SIGNED BY MACEY HARDEN MD, MD ON 12/24/2018 AT 01:57 PM EST DISCLAIMER : THIS IS A VISIT SUMMARY EXTRACTED FROM THE [employer] CHART. IT IS NOT A COPY OF THE [employer] PROGRESS NOTE. DAVID
== END ==
LOC: M PAIN 14:30
PROVIDERS: ATTEND Anesthesiology
DX: M46.1 Sacroiliitis, not elsewhere classified (principal); M48.061 Spinal stenosis, lumbar region without neurogenic claudication; I10 Essential (primary) hypertension; L40.9 Psoriasis, unspecified; E78.5 Hyperlipidemia, unspecified; E66.9 Obesity, unspecified; E73.9 Lactose intolerance, unspecified; G47.33 Obstructive sleep apnea (adult) (pediatric); Z68.32 Body mass index [BMI] 32.0-32.9, adult; Z79.899 Other long term (current) drug therapy

== ENCOUNTER → 2019-01-09 | Outpatient (CLI) | payer MEDICARE ==
[~2019-01-09] MED LIST changes: +BUPIVACAINE HCL 0.25% 30 ML VIAL As Ordered ONE; +ISOVUE-M 300 61% 15ML VIAL (Q9967) As Ordered ONE; +LIDOCAINE 1% SDV INJ 30 ML VIAL As Ordered ONE; +TRIAMCINOLONE ACETONIDE SUSP 40 MG/ML VIAL (J3301) As Ordered ONE; +diazePAM 5 MG TAB As Ordered ONE; +oxyCODONE 5MG TAB As Ordered ONE
--- NOTE | 2019-01-09 16:59 | REP ---
SI joint series: Five views. History: Bilateral SI joint injection for pain. 20 seconds of fluoroscopy time is reported. Findings: A sequence of five last image hold fluoroscopically obtained spot radiographs of the SI joints document various needle positions associated with bilateral SI joint injection procedure. Electronically Signed by Luis Kowalski MD 01/09/2019 04:51 P
--- NOTE | 2019-01-19 01:08 | ECWPNPC ---
PATIENT NAME: WENDY MATHIAS V : 1940 GENDER: FEMALE VISIT DATE: 01/09/2019 DISCHARGE DATE: 01/09/19 1616 VISIT LOCKED DATE TIME: PHYSICIAN: MACEY HARDEN MD RESOURCE: MACEY HARDEN MD REASON FOR APPOINTMENT 1. BILATERAL SIJ HISTORY OF PRESENT ILLNESS HISTORY OF PRESENT ILLNESS: PAIN THE PATIENT DESCRIBES THE PAIN... FALL RISK SCREENING: SCREENING : NO FALLS IN THE PAST YEAR. CURRENT MEDICATIONS TAKING LOSARTAN POTASSIUM 100 MG TABLET 1 TABLET ORALLY ONCE A DAY, NOTES: 01-09-19599 TAKING AMLODIPINE BESYLATE 10 MG TABLET 1 TABLET ORALLY ONCE A DAY, NOTES: 01-09-19699 TAKING HYDROCHLOROTHIAZIDE 25 MG TABLET 1 TABLET IN THE MORNING ORALLY ONCE A DAY, NOTES: 01-09-19699 TAKING ATENOLOL 50 MG TABLET 1 TABLET ORALLY ONCE A DAY, NOTES: 01-08-192099 TAKING ATORVASTATIN CALCIUM 20 MG TABLET 1 TABLET ORALLY ONCE A DAY, NOTES: 01-08-192099 TAKING CELECOXIB 200 MG CAPSULE 1 CAPSULE WITH FOOD ORALLY ONCE A DAY, NOTES: NOT LATELY TAKING CALCIUM 1 TAB ORAL , NOTES: 01-08-192099 TAKING MAGNESIUM 100 MG TABLET 4 TABLETS WITH A MEAL ORALLY ONCE A DAY, NOTES: 01-08-192099 TAKING LUTEIN 20 - CAPSULE ORALLY , NOTES: NOT LATELT TAKING VITAMIN E 400 UNIT CAPSULE 1 CAPSULE ORALLY ONCE A DAY, NOTES: 01-08-192099 TAKING VISION VITAMINS - TABLET ORALLY , NOTES: 01-08-192099 TAKING OMEGA 3 1000 MG CAPSULE 1 CAPSULE ORALLY ONCE A DAY, NOTES: 01-08-19 09 TAKING ACETAMINOPHEN ER 650 MG TABLET EXTENDED RELEASE 2 TABLETS NEEDED ORALLY EVERY 8 HRS, NOTES: 3119 090 TAKING ACETAMINOPHEN PM 500-25 MG TABLET 1 TABLET AT BEDTIME NEEDED ORALLY ONCE A DAY, NOTES: NOT LATELY TAKING MELATONIN 3 MG TABLET 1 TABLET AT BEDTIME NEEDED WITH FOOD ORALLY ONCE A DAY NOT-TAKING VITAMIN D-3 5000 UNIT TABLET 1 TABLET ORALLY ONCE A DAY MEDICATION LIST REVIEWED AND RECONCILED WITH THE PATIENT PAST MEDICAL HISTORY HYPERTENSION CHRONIC DRY EYE PSORIASIS ARTHRITIS HYPERLIPIDEMIA OBESITY CLIFFORD ALLERGIES LACTOSE: NAUSEA/VOMITING - ALLERGY SURGICAL HISTORY HYSTERECTOMY BLADDER REPAIR BOWEL SURGERY RIGHT HIP FAMILY HISTORY FATHER: , DIAGNOSED WITH HYPERTENSION, HEART DISEASE MOTHER: ALIVE, CANCER SISTER - DUE TO DM. SOCIAL HISTORY GENERAL: TOBACCO USE ARE YOU A:NONSMOKER DIET: REGULAR. NEW PATIENT PAIN DIARY PATIENT DESCRIBES PAIN :ACHING, HAVE IT ALL THE TIME, STABBING, SHOOTING FROM 0-10, WHAT LEVEL IS YOUR PAIN TODAY?8 PRECIPITATING FACTORS PAIN HAS INCREASED OVER LAST TWO YEARS, WALKING INCREASES PAIN. HOUSEWORK, STANDING IN PLACE, BENDING, LIFTING, SWEEPING AND MOPPING ALLEVIATING FACTORS SITTING WITH LEGS ELEVATED, USING CANE, WEARING BACK SUPPORT AND LYING DOWN IMPACT ON FUNCTION DECREASED ABILITY TO DO DAILY ACTIVITIES IS THERE A CHANCE YOU COULD BE ?NO HAVE YOU BEEN SICK IN THE LAST WEEK (COLD, COUGH, FEVER, FLU, ETC)NO DO YOU TAKE ANY BLOOD THINNERS?NO DO YOU HAVE ANY RASHES OR OPEN SORES?NO ANY CHANGE IN BOWEL OR BLADDER CONTROL?NO ARE YOU ALLERGIC TO SHELLFISH OR IV DYE?NO ARE YOU DIABETIC?NO DO YOU HAVE A PACEMAKER OR DEFIBRILLATOR?NO ANY NEW PROBLEMS WITH MEDICINES OR NEW ALLERGIESNO ANY NEW PATTERNS OF PAIN OR NUMBNESS?YES ANY CHANGE IN YOUR MEDICAL CONDITION?NO HAVE YOU FALLEN IN THE LAST 6 MONTHS?NO DO YOU USE ANY TYPE OF TOBACCO (SMOKE, SMOKELESS, CHEW, ETC.)NO ARE YOU ABUSED, NEGLECTED, OR IN AN UNSAFE ENVIRONMENT?NO DO YOU HAVE THOUGHTS OF HURTING YOURSELF OR SOMEONE ELSE?NO DO YOU NEED ANY PRESCRIPTIONS?NO DO YOU HAVE ANY OTHER QUESTIONS OR CONCERNS?NO PAIN CLINIC PFS, CLERGY, PUBLIC HEALTH REFERRALS WAS THE PROVIDER NOTIFIED OF ANY PERTINENT INFO?YES HAS THE PATIENT BEEN EDUCATED REGARDING HIS/HER PLAN OF CARE?YES HAS THE PATIENT BEEN EDUCATED REGARDING PAIN, THE RISK FOR PAIN, THE IMPORTANCE OF EFFECTIVE PAIN MANAGEMENT, AND THE PAIN ASSESSMENT PROCESS?YES ADVANCE DIRECTIVE ADVANCE DIRECTIVE DISCUSSED WITH PATIENT:YES HCP ENA MATHIAS HOSPITALIZATION/MAJOR DIAGNOSTIC PROCEDURE NO HOSPITALIZATION HISTORY. REVIEW OF SYSTEMS REVIEWED BY: PROVIDER: . CONSTITUTIONAL: ANY CHANGE IN YOUR MEDICAL CONDITION? NO . CHILLS NO . FEVER NO . INFECTION: DO YOU HAVE NEW INFECTIONS? NO . DO YOU HAVE HISTORY OF MRSA? NO . MUSCULOSKELETAL: ANY NEW PATTERNS OF PAIN OR NUMBNESS? YES INCREASED DISCOMFORT . GASTROENTEROLOGY: ANY NEW CHANGE IN BOWEL CONTROL? NO . GENITOURINARY: ANY NEW CHANGE IN BLADDER CONTROL? NO . IS THERE A CHANCE YOU COULD BE ? NO . HEMATOLOGY/LYMPH: DO YOU TAKE ANY BLOOD THINNERS? (FOR EXAMPLE- COUMADIN, PLAVIX, AGGRENOX, PLATEL, PRADAXA, OR XARELTO) NO . WHEN WAS YOUR LAST DOSE? DATE: TIME: . NEUROLOGY: HAVE YOU FALLEN IN THE PAST 12 MONTHS? NO . ANY NEW EXTREMITY NUMBNESS OR WEAKNESS? NO . CARDIOLOGY: DO YOU HAVE A PACEMAKER OR DEFIBRILLATOR? NO . RESPIRATORY: HAVE YOU BEEN SICK IN THE PAST WEEK? NO . FEVER NO . FLU LIKE SYMPTOMS? NO . COUGH NO . INTEGUMENTARY: DO YOU HAVE ANY RASHES OR OPEN SORES? NO . ALLERGIC/IMMUNO: ARE YOU ALLERGIC TO IV DYE? NO . ANY NEW ALLERGIES? NO . PSYCHIATRIC: DO YOU HAVE THOUGHTS OF HURTING YOURSELF OR SOMEONE ELSE? NO . ARE YOU ABUSED, NEGLECTED, OR IN AN UNSAFE ENVIRONMENT? NO . ENDOCRINOLOGY: ARE YOU DIABETIC? NO . OTHER: DO YOU NEED ANY PRESCRIPTIONS? NO . IF YES, PLEASE LIST: ____ . ANY NEW PROBLEMS WITH YOUR MEDICATIONS? NO . WHEN DID YOU LAST EAT? ____LAST NIGHT 630 . WHEN DID YOU LAST DRINK? ____630 PM . WHAT DID YOU LAST DRINK? ____COFFEE . NAME OF PERSON DRIVING YOU HOME? ____JOHN . DO YOU HAVE ANY OTHER QUESTIONS OR CONCERNS NO . VITAL SIGNS WT 168.8 LBS, HT 61 IN, BMI 31.89 INDEX, BP 143/69 MM HG, HR 51 /MIN, RR 16 /MIN, TEMP 97.6 F, OXYGEN SAT % 91%, SAFE IN ENV? (Y/N) YES, NA INITIALS SC 12:18, REVIEWED BY: KG. 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 MACEY HARDEN FACILITIES ENGINEER NONE ANESTHESIA LOCAL PRE PROCEDURE NOTE PATIENT WITH HISTORY OF CHRONIC LOW BACK PAIN. I EVALUATED THE PATIENT AND REVIEWED THE CHART. I WENT OVER THE RISKS, ALTERNATIVES, AND BENEFITS ASSOCIATED WITH THIS PROCEDURE. THE PATIENT WOULD LIKE TO PROCEED AND GAVE CONSENT TO PERFORM THE PROCEDURE. THE PATIENT DENIES UNEXPLAINABLE WEIGHT LOSS, FEVER, CHILLS, OR NEW CHANGES IN URINARY OR BOWEL CONTROL DESCRIPTION OF PROCEDURE THE PATIENT WAS BROUGHT TO THE PROCEDURE ROOM AND PLACED IN THE PRONE POSITION. THE LUMBOSACRAL AREA WAS CLEANED WITH CHLORAPREP SOLUTION AND DRAPED ASEPTICALLY. THE PROCEDURE WAS DONE UNDER STERILE CONDITIONS. I CHECKED LATERALITY AND THE LEVEL WHERE THE PROCEDURE WAS GOING TO BE PERFORMED WITH THE PATIENT AND THE SUPPORTING STAFF AT THE MOMENT OF THE TIME OUT IN THE PROCEDURE ROOM. UNDER FLUOROSCOPIC GUIDANCE, TARGET POINT WAS SELECTED AT THE LOWER BORDER OF THE RIGHT AND LEFT SACROILIAC JOINT. TARGET POINT WAS SELECTED AFTER MEDIAL ROTATION AND TILT OF THE MAGNIFIER OF THE C-ARM. LIDOCAINE WAS USED TO NUMB THE SKIN AND SUBCUTANEOUS TISSUE BELOW IT. A SPINAL NEEDLE, 22-GAUGE, WAS ADVANCED UNDER FLUOROSCOPIC GUIDANCE AND FOLLOWING PATIENT FEEDBACK UNTIL THE TARGET AREA WAS TOUCHED. THE POSITION OF THE NEEDLE WAS VERIFIED WITH AP AND LATERAL VIEWS. AFTER PROPER POSITION OF THE NEEDLE WAS ACHIEVED, ISOVUE M DYE 30%, 0.25 ML, WAS INJECTED SHOWING SPREAD OF THE DYE. THEN, A SOLUTION OF 20 MG OF KENALOG WAS INJECTED IN RIGHT AND LEFT JOINT WITH 3 ML OF BUPIVACAINE 0.125%. THERE WAS NO EVIDENCE OF BLOOD, PARESTHESIA OR CEREBROSPINAL FLUID DURING THE PROCEDURE. THE PATIENT WAS SENT TO THE RECOVERY ROOM. THE PATIENT WAS MOVING THE EXTREMITIES AND DOING WELL. THERE WAS NO COMPLICATION DURING THE PROCEDURE. FLUOROSCOPY TIME WAS 20 SECONDS POST PROCEDURE NOTE THE PATIENT WILL BE SEEN IN A FOLLOW UP IN THE NEXT FEW WEEKS. INSTRUCTIONS WERE GIVEN, QUESTIONS WERE ANSWERED, AND THE PATIENT EXPRESSED UNDERSTANDING AND AGREED WITH THE PLAN. I, NELLY ORTIZ, DOCUMENTED THE ABOVE INFORMATION ACTING A SCRIBE FOR DR. HARDEN. I HAVE REVIEWED THE ABOVE DOCUMENT, WRITTEN BY NELLY BABB AND I VERIFY THAT IT IS ACCURATE. PROCEDURE CODES 6045F RADXPS IN END [id number] PXD [id number] INJECT SACROILIAC JOINT, MODIFIERS: 50 DISPOSITION & COMMUNICATION FOLLOW UP 3 WEEKS ELECTRONICALLY SIGNED BY MACEY HARDEN MD, MD ON 01/18/2019 AT 09:33 AM EDT DISCLAIMER : THIS IS A VISIT SUMMARY EXTRACTED FROM THE [employer] CHART. IT IS NOT A COPY OF THE [employer] PROGRESS NOTE. MTDD
== END ==
LOC: M PAIN 12:15
PROVIDERS: ATTEND Anesthesiology
DX: M46.1 Sacroiliitis, not elsewhere classified (principal); M53.88 Other specified dorsopathies, sacral and sacrococcygeal region; I10 Essential (primary) hypertension; L40.9 Psoriasis, unspecified; M19.90 Unspecified osteoarthritis, unspecified site; E78.5 Hyperlipidemia, unspecified; G47.33 Obstructive sleep apnea (adult) (pediatric); E73.9 Lactose intolerance, unspecified; Z79.899 Other long term (current) drug therapy
CPT/HCPCS: G0260; J3301; Q9967

== ENCOUNTER → 2019-02-26 | Outpatient (CLI) | payer MEDICARE ==
[~2019-02-26] MED LIST changes: -BUPIVACAINE HCL 0.25% 30 ML VIAL As Ordered ONE; +HYDR-2541 PO; -ISOVUE-M 300 61% 15ML VIAL (Q9967) As Ordered ONE; -LIDOCAINE 1% SDV INJ 30 ML VIAL As Ordered ONE; -TRIAMCINOLONE ACETONIDE SUSP 40 MG/ML VIAL (J3301) As Ordered ONE; -diazePAM 5 MG TAB As Ordered ONE; -oxyCODONE 5MG TAB As Ordered ONE
--- NOTE | 2019-03-12 00:49 | ECWPNPC ---
PATIENT NAME: WENDY MATHIAS V : 1940 GENDER: FEMALE VISIT DATE: 02/26/2019 DISCHARGE DATE: 02/26/19 1329 VISIT LOCKED DATE TIME: PHYSICIAN: MACEY HARDEN MD RESOURCE: MACEY HARDEN MD REASON FOR APPOINTMENT 1. POST PROC/LBP HISTORY OF PRESENT ILLNESS HISTORY OF PRESENT ILLNESS: PAIN THE PATIENT DESCRIBES THE PAIN... 78 YEAR OLD FEMALE PATIENT WITH A HISTORY OF CHRONIC LOW BACK PAIN. THE PATIENT DESCRIBES THE PAIN SOME ACHINESS WITH A PAIN SCORE OF 0-2/10 DEPENDING ON PHYSICAL ACTIVITY. THE PATIENT RECEIVED A BILATERAL SACROILIAC JOINT INJECTION ON 01/09/2019 AND SAYS SHE IS DOING VERY WELL FROM THE PROCEDURE. THE PATIENT SAYS SHE IS DOING PHYSICAL THERAPY AND IS LOSING WEIGHT THAT IS ALSO HELPING WITH PAIN RELIEF. PATIENT DENIES UNEXPLAINABLE WEIGHT LOSS, FEVER, CHILLS, NEW CHANGES ON HER URINARY OR BOWEL CONTROL. FALL RISK SCREENING: SCREENING :NO FALLS REPORTED IN THE LAST YEAR CURRENT MEDICATIONS TAKING LOSARTAN POTASSIUM 100 MG TABLET 1 TABLET ORALLY ONCE A DAY TAKING AMLODIPINE BESYLATE 10 MG TABLET 1 TABLET ORALLY ONCE A DAY TAKING HYDROCHLOROTHIAZIDE 25 MG TABLET 1 TABLET IN THE MORNING ORALLY ONCE A DAY TAKING ATENOLOL 50 MG TABLET 1 TABLET ORALLY ONCE A DAY TAKING ATORVASTATIN CALCIUM 20 MG TABLET 1 TABLET ORALLY ONCE A DAY TAKING CALCIUM 1 TAB ORAL TAKING MAGNESIUM 100 MG TABLET 4 TABLETS WITH A MEAL ORALLY ONCE A DAY TAKING LUTEIN 20 - CAPSULE ORALLY , NOTES: NOT LATELY TAKING VITAMIN E 400 UNIT CAPSULE 1 CAPSULE ORALLY ONCE A DAY TAKING VISION VITAMINS - TABLET ORALLY TAKING OMEGA 3 1000 MG CAPSULE 1 CAPSULE ORALLY ONCE A DAY TAKING ACETAMINOPHEN ER 650 MG TABLET EXTENDED RELEASE 2 TABLETS NEEDED ORALLY EVERY 8 HRS TAKING MELATONIN 3 MG TABLET 1 TABLET AT BEDTIME NEEDED WITH FOOD ORALLY ONCE A DAY NOT-TAKING CELECOXIB 200 MG CAPSULE 1 CAPSULE WITH FOOD ORALLY ONCE A DAY, NOTES: NOT LATELY NOT-TAKING ACETAMINOPHEN PM 500-25 MG TABLET 1 TABLET AT BEDTIME NEEDED ORALLY ONCE A DAY, NOTES: NOT LATELY NOT-TAKING VITAMIN D-3 5000 UNIT TABLET 1 TABLET ORALLY ONCE A DAY MEDICATION LIST REVIEWED AND RECONCILED WITH THE PATIENT PAST MEDICAL HISTORY HYPERTENSION CHRONIC DRY EYE PSORIASIS ARTHRITIS HYPERLIPIDEMIA OBESITY CLIFFORD ALLERGIES LACTOSE: NAUSEA/VOMITING - ALLERGY SURGICAL HISTORY HYSTERECTOMY BLADDER REPAIR BOWEL SURGERY RIGHT HIP FAMILY HISTORY FATHER: , DIAGNOSED WITH HYPERTENSION, HEART DISEASE MOTHER: ALIVE, CANCER SISTER - DUE TO DM. SOCIAL HISTORY GENERAL: TOBACCO USE ARE YOU A:NONSMOKER PAIN CLINIC PFS, CLERGY, PUBLIC HEALTH REFERRALS WAS THE PROVIDER NOTIFIED OF ANY PERTINENT INFO?YES HAS THE PATIENT BEEN EDUCATED REGARDING HIS/HER PLAN OF CARE?YES HAS THE PATIENT BEEN EDUCATED REGARDING PAIN, THE RISK FOR PAIN, THE IMPORTANCE OF EFFECTIVE PAIN MANAGEMENT, AND THE PAIN ASSESSMENT PROCESS?YES LATEX QUESTIONNAIRE LATEX ALLERGY : HAVE YOU EVER DEVELOPED ANY TYPE OF REACTION AFTER HANDLING LATEX PRODUCTS SUCH RUBBER GLOVES, CONDOMS, DIAPHRAGMS, BALLOONS, SOCKS, OR UNDERWEAR?NO LATEX ALLERGY : HAVE YOU EVER DEVELOPED ANY TYPE OF REACTION DURING OR AFTER DENTAL APPOINTMENT, VAGINAL/RECTAL EXAMINATION, SURGICAL PROCEDURE, OR ANY OTHER EXPOSURE?NO LATEX RISK : HAVE YOU EVER HAD ANY DIFFICULTY BREATHING OR HIVES AFTER EATING OR HANDLING ANY FRUITS, OR VEGETABLES; SUCH KIWI, BANANAS, STONE FRUITS, OR CHESTNUTSNO LATEX RISK : DO YOU HAVE A PREVIOUS PERSONAL HISTORY OF MORE THAN NINE SURGERIES, SPINA BIFIDA, OR REPEATED CATHERTIZATIONS? NO LATEX RISK : ARE YOU FREQUENTLY EXPOSED TO LATEX PRODUCTS IN YOUR OCCUPATION?NO DATE ASKED : 02/26/2019 ADVANCE DIRECTIVE ADVANCE DIRECTIVE DISCUSSED WITH PATIENT:YES HCP ENA MATHIAS DIET: REGULAR. VOODOO VOODOO NO RASTAFARI BELIEFS THAT WOULD IMPACT HEALTH CARE. LANGUAGE LANGUAGES SPOKEN:PASHTO NEW PATIENT PAIN DIARY PATIENT DESCRIBES PAIN :ACHING, HAVE IT ALL THE TIME, STABBING, SHOOTING FROM 0-10, WHAT LEVEL IS YOUR PAIN TODAY?8 PRECIPITATING FACTORS PAIN HAS INCREASED OVER LAST TWO YEARS, WALKING INCREASES PAIN. HOUSEWORK, STANDING IN PLACE, BENDING, LIFTING, SWEEPING AND MOPPING ALLEVIATING FACTORS SITTING WITH LEGS ELEVATED, USING CANE, WEARING BACK SUPPORT AND LYING DOWN IMPACT ON FUNCTION DECREASED ABILITY TO DO DAILY ACTIVITIES IS THERE A CHANCE YOU COULD BE ?NO HAVE YOU BEEN SICK IN THE LAST WEEK (COLD, COUGH, FEVER, FLU, ETC)NO DO YOU TAKE ANY BLOOD THINNERS?NO DO YOU HAVE ANY RASHES OR OPEN SORES?NO ANY CHANGE IN BOWEL OR BLADDER CONTROL?NO ARE YOU ALLERGIC TO SHELLFISH OR IV DYE?NO ARE YOU DIABETIC?NO DO YOU HAVE A PACEMAKER OR DEFIBRILLATOR?NO ANY NEW PROBLEMS WITH MEDICINES OR NEW ALLERGIESNO ANY NEW PATTERNS OF PAIN OR NUMBNESS?YES ANY CHANGE IN YOUR MEDICAL CONDITION?NO HAVE YOU FALLEN IN THE LAST 6 MONTHS?NO DO YOU USE ANY TYPE OF TOBACCO (SMOKE, SMOKELESS, CHEW, ETC.)NO ARE YOU ABUSED, NEGLECTED, OR IN AN UNSAFE ENVIRONMENT?NO DO YOU HAVE THOUGHTS OF HURTING YOURSELF OR SOMEONE ELSE?NO DO YOU NEED ANY PRESCRIPTIONS?NO DO YOU HAVE ANY OTHER QUESTIONS OR CONCERNS?NO RECREATIONAL DRUG USE DRUG USE?NO LEARNING BARRIERS / SPECIAL NEEDS BARRIERS TO LEARNING?NO HEARING IMPAIRED?NO VISION IMPAIRED?YES :CORRECTIVE LENSES COGNITIVELY IMPAIRED?NO READINESS TO LEARN?YES REVIEWED WITH PT 02/26/19 1224 BV. HOSPITALIZATION/MAJOR DIAGNOSTIC PROCEDURE NO HOSPITALIZATION HISTORY. REVIEW OF SYSTEMS REVIEWED BY: PROVIDER: MACEY HARDEN MD . CONSTITUTIONAL: ANY CHANGE IN YOUR MEDICAL CONDITION? NO . CHILLS NO . FEVER NO . INFECTION: DO YOU HAVE NEW INFECTIONS? NO . DO YOU HAVE HISTORY OF MRSA? NO . MUSCULOSKELETAL: ANY NEW PATTERNS OF PAIN OR NUMBNESS? NO . GASTROENTEROLOGY: ANY NEW CHANGE IN BOWEL CONTROL? NO . GENITOURINARY: ANY NEW CHANGE IN BLADDER CONTROL? NO . IS THERE A CHANCE YOU COULD BE ? NO . HEMATOLOGY/LYMPH: DO YOU TAKE ANY BLOOD THINNERS? (FOR EXAMPLE- COUMADIN, PLAVIX, AGGRENOX, PLATEL, PRADAXA, OR XARELTO) NO . WHEN WAS YOUR LAST DOSE? DATE: TIME: . NEUROLOGY: HAVE YOU FALLEN IN THE PAST 12 MONTHS? NO . ANY NEW EXTREMITY NUMBNESS OR WEAKNESS? NO . CARDIOLOGY: DO YOU HAVE A PACEMAKER OR DEFIBRILLATOR? NO . RESPIRATORY: HAVE YOU BEEN SICK IN THE PAST WEEK? NO . FEVER NO . FLU LIKE SYMPTOMS? NO . COUGH NO . INTEGUMENTARY: DO YOU HAVE ANY RASHES OR OPEN SORES? NO . ALLERGIC/IMMUNO: ARE YOU ALLERGIC TO IV DYE? NO . ANY NEW ALLERGIES? NO . PSYCHIATRIC: DO YOU HAVE THOUGHTS OF HURTING YOURSELF OR SOMEONE ELSE? NO . ARE YOU ABUSED, NEGLECTED, OR IN AN UNSAFE ENVIRONMENT? NO . ENDOCRINOLOGY: ARE YOU DIABETIC? NO . OTHER: DO YOU NEED ANY PRESCRIPTIONS? NO . IF YES, PLEASE LIST: ____ . ANY NEW PROBLEMS WITH YOUR MEDICATIONS? NO . WHEN DID YOU LAST EAT? ____ . WHEN DID YOU LAST DRINK? ____ . WHAT DID YOU LAST DRINK? ____ . NAME OF PERSON DRIVING YOU HOME? ____ . DO YOU HAVE ANY OTHER QUESTIONS OR CONCERNS NO . VITAL SIGNS WT 169.4 LBS, HT 61 IN, BMI 32.00 INDEX, BP 144/85 MM HG, HR 60 /MIN, RR 16 /MIN, TEMP 98.2 F, OXYGEN SAT % 93%, NA INITIALS SC 12:08, REVIEWED BY: BV. EXAMINATION GENERAL EXAMINATION: PATIENT IS ALERT O X 3 AND COOPERATIVE. 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 CHUNG'S PAIN MANAGEMENT CASE. THE PATIENT IS DOING VERY FROM THE SACROILIAC JOINT INJECTION, PHYSICAL THERAPY, AND WEIGHT LOSS, SO WE WILL NOT BE MOVING FORWARD WITH ANY INTERVENTIONS AT THIS TIME. THE PATIENT WILL FOLLOW UP IN 3 MONTHS. I ADVISED THE PATIENT TO CALL TO BE SOONER SHOULD ANY ISSUES ARRIVE BEFORE THE NEXT APPOINTMENT. INSTRUCTIONS WERE GIVEN, QUESTIONS WERE ANSWERED, PATIENT REPORTS UNDERSTANDING AND AGREES WITH THE PLAN. I, SHANITA JUÁREZ, DOCUMENTED THE ABOVE INFORMATION ACTING A SCRIBE FOR DR. HARDEN. I HAVE REVIEWED THE ABOVE DOCUMENT, WRITTEN BY SHANITA BABB AND I VERIFY THAT IT IS ACCURATE. . PROCEDURE CODES FA211 ESTABILISHED PATIENT [facility] FACILITY CHARGE G8427 CURRENT MEDS W/DOSAGES DOCUMENTED G8730 PAIN ASSESS POS TOOL F/U PLAN DOC DISPOSITION & COMMUNICATION FOLLOW UP 3 MONTHS ELECTRONICALLY SIGNED BY MACEY HARDEN MD, ON 03/11/2019 AT 06:38 PM EDT DISCLAIMER : THIS IS A VISIT SUMMARY EXTRACTED FROM THE [employer] CHART. IT IS NOT A COPY OF THE [employer] PROGRESS NOTE. MTDD
== END ==
LOC: M PAIN 11:45
PROVIDERS: ATTEND Anesthesiology
DX: M46.1 Sacroiliitis, not elsewhere classified (principal); M53.3 Sacrococcygeal disorders, not elsewhere classified; G89.29 Other chronic pain; I10 Essential (primary) hypertension; M19.90 Unspecified osteoarthritis, unspecified site; E78.5 Hyperlipidemia, unspecified; G47.33 Obstructive sleep apnea (adult) (pediatric); Z91.011 Allergy to milk products; Z79.899 Other long term (current) drug therapy

== ENCOUNTER → 2019-05-28 | Outpatient (CLI) | payer MEDICARE ==
--- NOTE | 2019-06-06 01:59 | ECWPNPC ---
PATIENT NAME: WENDY MATHIAS V : 1940 GENDER: FEMALE VISIT DATE: 05/28/2019 DISCHARGE DATE: 05/28/19 1233 VISIT LOCKED DATE TIME: PHYSICIAN: MACEY HARDEN MD RESOURCE: MACEY HARDEN MD REASON FOR APPOINTMENT 1. BACK PAIN HISTORY OF PRESENT ILLNESS HISTORY OF PRESENT ILLNESS: PAIN THE PATIENT DESCRIBES THE PAIN... 78 YEAR OLD FEMALE PATIENT WITH A HISTORY OF CHRONIC LOW BACK PAIN. THE PATIENT DESCRIBES THE PAIN ACHING, SHARP, STABBING, TENDER, AND CONTINUOUS WITH A PAIN SCORE OF 7-10/10 DEPENDING ON PHYSICAL ACTIVITY. THE PATIENT STATES HER MAIN PAIN IS IN HER LOW BACK AND SHE IS ALSO EXPERIENCING KNEE PAIN. THE PATIENT SAYS HER PAIN IS AFFECTING HER ABILITY TO PERFORM HER DAILY ACTIVITIES SUCH WALKING, CLEANING, GARDENING, SLEEPING, AND COOKING. THE PATIENT SAYS SHE RECEIVED A KNEE INJECTION ABOUT A MONTH AGO FROM HER ORTHOPEDIC, BUT SHE IS STILL EXPERIENCING CONSTANT KNEE PAIN. THE PATIENT RECEIVED A BILATERAL SACROILIAC JOINT BLOCK ON 01/09/2019, WHICH SHE SAYS PROVIDED HER WITH GOOD PAIN RELIEF FOR 3 MONTHS. THE PATIENT MENTIONS SHE HAD HIP REPLACEMENT SURGERY, AND SINCE THEN SHE EXPERIENCES PAIN DOWN HER LEGS AND TINGLING AND NUMBNESS IN HER TOES DURING THE NIGHT. THE PATIENT SAYS SHE ALSO EXPERIENCES PAIN AND SOME MUSCLE SPASMS IN HER THORACIC BACK AREA BETWEEN HER SHOULDER BLADES. PATIENT DENIES UNEXPLAINABLE WEIGHT LOSS, FEVER, CHILLS, NEW CHANGES ON HER URINARY OR BOWEL CONTROL. FALL RISK SCREENING: SCREENING :NO FALLS REPORTED IN THE LAST YEAR CURRENT MEDICATIONS TAKING LOSARTAN POTASSIUM 100 MG TABLET 1 TABLET ORALLY ONCE A DAY TAKING AMLODIPINE BESYLATE 10 MG TABLET 1 TABLET ORALLY ONCE A DAY TAKING HYDROCHLOROTHIAZIDE 25 MG TABLET 1 TABLET IN THE MORNING ORALLY ONCE A DAY TAKING ATENOLOL 50 MG TABLET 1 TABLET ORALLY ONCE A DAY TAKING ATORVASTATIN CALCIUM 20 MG TABLET 1 TABLET ORALLY ONCE A DAY TAKING CALCIUM 1 TAB ORAL TAKING MAGNESIUM 100 MG TABLET 4 TABLETS WITH A MEAL ORALLY ONCE A DAY TAKING LUTEIN 20 - CAPSULE ORALLY , NOTES: NOT LATELY TAKING VITAMIN E 400 UNIT CAPSULE 1 CAPSULE ORALLY ONCE A DAY TAKING VISION VITAMINS - TABLET ORALLY TAKING OMEGA 3 1000 MG CAPSULE 1 CAPSULE ORALLY ONCE A DAY TAKING MELATONIN 3 MG TABLET 1 TABLET AT BEDTIME NEEDED WITH FOOD ORALLY ONCE A DAY TAKING MAY USE CBD OIL GUMMIES ORALLY PRN NOT-TAKING ACETAMINOPHEN ER 650 MG TABLET EXTENDED RELEASE 2 TABLETS NEEDED ORALLY EVERY 8 HRS NOT-TAKING CELECOXIB 200 MG CAPSULE 1 CAPSULE WITH FOOD ORALLY ONCE A DAY, NOTES: NOT LATELY NOT-TAKING ACETAMINOPHEN PM 500-25 MG TABLET 1 TABLET AT BEDTIME NEEDED ORALLY ONCE A DAY, NOTES: NOT LATELY NOT-TAKING VITAMIN D-3 5000 UNIT TABLET 1 TABLET ORALLY ONCE A DAY MEDICATION LIST REVIEWED AND RECONCILED WITH THE PATIENT PAST MEDICAL HISTORY HYPERTENSION CHRONIC DRY EYE PSORIASIS ARTHRITIS HYPERLIPIDEMIA OBESITY CLIFFORD ALLERGIES LACTOSE: NAUSEA/VOMITING - ALLERGY SURGICAL HISTORY HYSTERECTOMY BLADDER REPAIR BOWEL SURGERY RIGHT HIP FAMILY HISTORY FATHER: , DIAGNOSED WITH HYPERTENSION, HEART DISEASE MOTHER: ALIVE, CANCER SISTER - DUE TO DM. SOCIAL HISTORY GENERAL: TOBACCO USE ARE YOU A:NONSMOKER PAIN CLINIC PFS, CLERGY, PUBLIC HEALTH REFERRALS WAS THE PROVIDER NOTIFIED OF ANY PERTINENT INFO?YES HAS THE PATIENT BEEN EDUCATED REGARDING HIS/HER PLAN OF CARE?YES HAS THE PATIENT BEEN EDUCATED REGARDING PAIN, THE RISK FOR PAIN, THE IMPORTANCE OF EFFECTIVE PAIN MANAGEMENT, AND THE PAIN ASSESSMENT PROCESS?YES LATEX QUESTIONNAIRE LATEX ALLERGY : HAVE YOU EVER DEVELOPED ANY TYPE OF REACTION AFTER HANDLING LATEX PRODUCTS SUCH RUBBER GLOVES, CONDOMS, DIAPHRAGMS, BALLOONS, SOCKS, OR UNDERWEAR?NO LATEX ALLERGY : HAVE YOU EVER DEVELOPED ANY TYPE OF REACTION DURING OR AFTER DENTAL APPOINTMENT, VAGINAL/RECTAL EXAMINATION, SURGICAL PROCEDURE, OR ANY OTHER EXPOSURE?NO LATEX RISK : HAVE YOU EVER HAD ANY DIFFICULTY BREATHING OR HIVES AFTER EATING OR HANDLING ANY FRUITS, OR VEGETABLES; SUCH KIWI, BANANAS, STONE FRUITS, OR CHESTNUTSNO LATEX RISK : DO YOU HAVE A PREVIOUS PERSONAL HISTORY OF MORE THAN NINE SURGERIES, SPINA BIFIDA, OR REPEATED CATHERIZATIONS? NO LATEX RISK : ARE YOU FREQUENTLY EXPOSED TO LATEX PRODUCTS IN YOUR OCCUPATION?NO DATE ASKED : 02/26/2019 ADVANCE DIRECTIVE ADVANCE DIRECTIVE DISCUSSED WITH PATIENT:YES HCP ENA MATHIAS DIET: REGULAR. MOSQUE MOSQUE NO QUAKER BELIEFS THAT WOULD IMPACT HEALTH CARE. LANGUAGE LANGUAGES SPOKEN:KHMER NEW PATIENT PAIN DIARY PATIENT DESCRIBES PAIN :ACHING, HAVE IT ALL THE TIME, STABBING, SHOOTING FROM 0-10, WHAT LEVEL IS YOUR PAIN TODAY?8 PRECIPITATING FACTORS PAIN HAS INCREASED OVER LAST TWO YEARS, WALKING INCREASES PAIN. HOUSEWORK, STANDING IN PLACE, BENDING, LIFTING, SWEEPING AND MOPPING ALLEVIATING FACTORS SITTING WITH LEGS ELEVATED, USING CANE, WEARING BACK SUPPORT AND LYING DOWN IMPACT ON FUNCTION DECREASED ABILITY TO DO DAILY ACTIVITIES IS THERE A CHANCE YOU COULD BE ?NO HAVE YOU BEEN SICK IN THE LAST WEEK (COLD, COUGH, FEVER, FLU, ETC)NO DO YOU TAKE ANY BLOOD THINNERS?NO DO YOU HAVE ANY RASHES OR OPEN SORES?NO ANY CHANGE IN BOWEL OR BLADDER CONTROL?NO ARE YOU ALLERGIC TO SHELLFISH OR IV DYE?NO ARE YOU DIABETIC?NO DO YOU HAVE A PACEMAKER OR DEFIBRILLATOR?NO ANY NEW PROBLEMS WITH MEDICINES OR NEW ALLERGIESNO ANY NEW PATTERNS OF PAIN OR NUMBNESS?YES ANY CHANGE IN YOUR MEDICAL CONDITION?NO HAVE YOU FALLEN IN THE LAST 6 MONTHS?NO DO YOU USE ANY TYPE OF TOBACCO (SMOKE, SMOKELESS, CHEW, ETC.)NO ARE YOU ABUSED, NEGLECTED, OR IN AN UNSAFE ENVIRONMENT?NO DO YOU HAVE THOUGHTS OF HURTING YOURSELF OR SOMEONE ELSE?NO DO YOU NEED ANY PRESCRIPTIONS?NO DO YOU HAVE ANY OTHER QUESTIONS OR CONCERNS?NO RECREATIONAL DRUG USE DRUG USE?NO LEARNING BARRIERS / SPECIAL NEEDS BARRIERS TO LEARNING?NO HEARING IMPAIRED?NO VISION IMPAIRED?YES :CORRECTIVE LENSES COGNITIVELY IMPAIRED?NO READINESS TO LEARN?YES REVIEWED WITH PT 02/26/19 1224 BV. HOSPITALIZATION/MAJOR DIAGNOSTIC PROCEDURE NO HOSPITALIZATION HISTORY. REVIEW OF SYSTEMS REVIEWED BY: PROVIDER: MACEY HARDEN MD . CONSTITUTIONAL: ANY CHANGE IN YOUR MEDICAL CONDITION? NO . CHILLS NO . FEVER NO . INFECTION: DO YOU HAVE NEW INFECTIONS? NO . DO YOU HAVE HISTORY OF MRSA? NO . MUSCULOSKELETAL: ANY NEW PATTERNS OF PAIN OR NUMBNESS? NO . GASTROENTEROLOGY: ANY NEW CHANGE IN BOWEL CONTROL? NO . GENITOURINARY: ANY NEW CHANGE IN BLADDER CONTROL? NO . IS THERE A CHANCE YOU COULD BE ? NO . HEMATOLOGY/LYMPH: DO YOU TAKE ANY BLOOD THINNERS? (FOR EXAMPLE- COUMADIN, PLAVIX, AGGRENOX, PLATEL, PRADAXA, OR XARELTO) NO . WHEN WAS YOUR LAST DOSE? DATE: TIME: . NEUROLOGY: HAVE YOU FALLEN IN THE PAST 12 MONTHS? NO . ANY NEW EXTREMITY NUMBNESS OR WEAKNESS? NO . CARDIOLOGY: DO YOU HAVE A PACEMAKER OR DEFIBRILLATOR? NO . RESPIRATORY: HAVE YOU BEEN SICK IN THE PAST WEEK? NO . FEVER NO . FLU LIKE SYMPTOMS? NO . COUGH NO . INTEGUMENTARY: DO YOU HAVE ANY RASHES OR OPEN SORES? NO . ALLERGIC/IMMUNO: ARE YOU ALLERGIC TO IV DYE? NO . ANY NEW ALLERGIES? NO . PSYCHIATRIC: DO YOU HAVE THOUGHTS OF HURTING YOURSELF OR SOMEONE ELSE? NO . ARE YOU ABUSED, NEGLECTED, OR IN AN UNSAFE ENVIRONMENT? NO . ENDOCRINOLOGY: ARE YOU DIABETIC? NO . OTHER: DO YOU NEED ANY PRESCRIPTIONS? NO . IF YES, PLEASE LIST: ____ . ANY NEW PROBLEMS WITH YOUR MEDICATIONS? NO . WHEN DID YOU LAST EAT? ____ . WHEN DID YOU LAST DRINK? ____ . WHAT DID YOU LAST DRINK? ____ . NAME OF PERSON DRIVING YOU HOME? ____ . DO YOU HAVE ANY OTHER QUESTIONS OR CONCERNS NO . VITAL SIGNS WT 171.8 LBS, HT 61 IN, BMI 32.46 INDEX, BP 149/67 MM HG, HR 55 /MIN, RR 16 /MIN, TEMP 97.7 F, OXYGEN SAT % 92%, NA INITIALS AW 1130, REVIEWED BY: EM. EXAMINATION GENERAL EXAMINATION: PATIENT IS ALERT O X 3 AND COOPERATIVE. TENDERNESS IN THE THORACIC AREA. PRESENCE OF BANDS OF TISSUE AND TRIGGER POINTS WITH RESTRICTION OF MOVEMENT OF THE THORACIC AREA. TENDERNESS IN THE LOW BACK OVER THE RIGHT AND LEFT SACROILIAC JOINTS. FABERE TEST IS POSITIVE FOR BILATERAL SACROILIAC JOINT DYSFUNCTION. ASSESSMENTS SACROILIITIS, NOT ELSEWHERE CLASSIFIED - M46.1 (PRIMARY) PAIN IN THORACIC SPINE - M54.6 OTHER CHRONIC PAIN - G89.29 MYALGIA, OTHER SITE - M79.18 TREATMENT SACROILIITIS, NOT ELSEWHERE CLASSIFIED CLINICAL NOTES: WE DISCUSSED SEVERAL ISSUES WITH MS. MATHIAS' PAIN MANAGEMENT CASE. DUE TO THE SACROILIAC JOINT DYSFUNCTION, I WOULD LIKE TO MOVE FORWARD WITH A BILATERAL SACROILIAC JOINT BLOCK AT THIS TIME. THE PATIENT WOULD LIKE TO MOVE FORWARD WITH IV SEDATION DUE TO DISCOMFORT, PAIN, AND ANXIETY ASSOCIATED WITH THE PROCEDURE. WE DISCUSSED THE BENEFITS, RISKS, AND ALTERNATIVES OF THE INJECTION AND THE PATIENT WOULD LIKE TO PROCEED. DUE TO THE TRIGGER POINTS, BANDS OF TISSUE, AND RESTRICTION OF MOVEMENT, I WOULD LIKE TO MOVE FORWARD WITH A THORACIC TRIGGER POINT INJECTION AT THIS TIME. WE DISCUSSED THE BENEFITS, RISKS, AND ALTERNATIVES OF THE INJECTION AND THE PATIENT WOULD LIKE TO PROCEED. I AM STARTING THE PATIENT ON GABAPENTIN 100 MG 1 TABLET NIGHTLY AND WILL INCREASE SLOWLY OVER TIME. THE PATIENT WILL FOLLOW UP WITH THE NURSE PRACTITIONER FOR MEDICATION MANAGEMENT IN SEVERAL WEEKS. INSTRUCTIONS WERE GIVEN, QUESTIONS WERE ANSWERED, PATIENT REPORTS UNDERSTANDING AND AGREES WITH THE PLAN. I, SHANITA JUÁREZ, DOCUMENTED THE ABOVE INFORMATION ACTING A SCRIBE FOR DR. HARDEN. I HAVE REVIEWED THE ABOVE DOCUMENT, WRITTEN BY SHANITA JOYIBJoy AND I VERIFY THAT IT IS ACCURATE. . OTHERS START GABAPENTIN CAPSULE, 100 MG, 1 CAPSULE, ORALLY FOR PAIN, BEFORE BEDTIME, 30 DAY(S), 30, REFILLS 1 NOTES: GABAPENTIN MATERIAL WAS PRINTED,OPTIONS: TRIGGER POINT INJECTION MATERIAL WAS PRINTED,TRIGGER POINT INJECTION HOME CARE MATERIAL WAS PRINTED,SACROILIAC JOINT PAIN MATERIAL WAS PRINTED,SACROILIAC JOINT DYSFUNCTION HOME CARE MATERIAL WAS PRINTED. PREVENTIVE MEDICINE PAIN CLINIC TEACHING: MEDICATIONS INFORMATION REGARDING NEW MEDICATION GABAPENTIN PROVIDED TO PT. VERBALIZED UNDERSTANDING OF USAGE.. PROCEDURE TEACHING PRE-PROCEDURE INSTRUCTIONS REVIWED WITH PT. VERBALIZED UNDERSTANDING.. PROCEDURE CODES FA211 ESTABILISHED PATIENT [facility] FACILITY CHARGE G8427 CURRENT MEDS W/DOSAGES DOCUMENTED G8730 PAIN ASSESS POS TOOL F/U PLAN DOC DISPOSITION & COMMUNICATION FOLLOW UP REASON: MERT SIJ BLOCK WITH IV SEDATE, PRE-OP F/U NEED. THORACIC TPI. F/U WITH HOG STICKER ELECTRONICALLY SIGNED BY MACEY HARDEN MD, ON 06/05/2019 AT 12:50 PM EDT DISCLAIMER : THIS IS A VISIT SUMMARY EXTRACTED FROM THE [employer] CHART. IT IS NOT A COPY OF THE [employer] PROGRESS NOTE. MTDD
== END ==
LOC: M PAIN 11:00
PROVIDERS: ATTEND Anesthesiology
DX: M46.1 Sacroiliitis, not elsewhere classified (principal); M54.6 Pain in thoracic spine; G89.29 Other chronic pain; M79.18 Myalgia, other site; I10 Essential (primary) hypertension; M19.90 Unspecified osteoarthritis, unspecified site; E78.5 Hyperlipidemia, unspecified; G47.33 Obstructive sleep apnea (adult) (pediatric); Z91.011 Allergy to milk products; Z79.899 Other long term (current) drug therapy

== ENCOUNTER → 2019-06-15 | Outpatient (CLI) | payer MEDICARE ==
[~2019-06-15] MED LIST changes: +BUPIVACAINE HCL 0.25% 10 ML VIAL As Ordered ONE; +BUPIVACAINE HCL 0.25% 30 ML VIAL As Ordered ONE; +TRIAMCINOLONE ACETONIDE SUSP 40 MG/ML VIAL (J3301) As Ordered ONE; +diazePAM 5 MG TAB As Ordered ONE; +oxyCODONE 5MG TAB As Ordered ONE
--- NOTE | 2019-06-21 23:14 | ECWPNPC ---
PATIENT NAME: WENDY MATHIAS V : 1940 GENDER: FEMALE VISIT DATE: 06/15/2019 DISCHARGE DATE: 06/15/19 1545 VISIT LOCKED DATE TIME: PHYSICIAN: MACEY HARDEN MD RESOURCE: MACEY HARDEN MD REASON FOR APPOINTMENT 1. TPI BILATERAL THORACIC HISTORY OF PRESENT ILLNESS HISTORY OF PRESENT ILLNESS: PAIN THE PATIENT DESCRIBES THE PAIN... FALL RISK SCREENING: SCREENING :NO FALLS REPORTED IN THE LAST YEAR CURRENT MEDICATIONS TAKING GABAPENTIN 100 MG CAPSULE 1 CAPSULE ORALLY FOR PAIN BEFORE BEDTIME, NOTES: 06/14/19 2100 TAKING LOSARTAN POTASSIUM 100 MG TABLET 1 TABLET ORALLY ONCE A DAY TAKING AMLODIPINE BESYLATE 10 MG TABLET 1 TABLET ORALLY ONCE A DAY TAKING HYDROCHLOROTHIAZIDE 25 MG TABLET 1 TABLET IN THE MORNING ORALLY ONCE A DAY TAKING ATENOLOL 50 MG TABLET 1 TABLET ORALLY ONCE A DAY TAKING ATORVASTATIN CALCIUM 20 MG TABLET 1 TABLET ORALLY ONCE A DAY TAKING CALCIUM 1 TAB ORAL TAKING MAGNESIUM 100 MG TABLET 4 TABLETS WITH A MEAL ORALLY ONCE A DAY TAKING LUTEIN 20 - CAPSULE ORALLY , NOTES: NOT LATELY TAKING VITAMIN E 400 UNIT CAPSULE 1 CAPSULE ORALLY ONCE A DAY TAKING VISION VITAMINS - TABLET ORALLY TAKING OMEGA 3 1000 MG CAPSULE 1 CAPSULE ORALLY ONCE A DAY TAKING MELATONIN 3 MG TABLET 1 TABLET AT BEDTIME NEEDED WITH FOOD ORALLY ONCE A DAY TAKING MAY USE CBD OIL GUMMIES ORALLY PRN TAKING POTASSIUM CHLORIDE ER 10 MEQ TABLET EXTENDED RELEASE 1 TABLET WITH FOOD ORALLY TWICE A DAY NOT-TAKING ACETAMINOPHEN ER 650 MG TABLET EXTENDED RELEASE 2 TABLETS NEEDED ORALLY EVERY 8 HRS NOT-TAKING CELECOXIB 200 MG CAPSULE 1 CAPSULE WITH FOOD ORALLY ONCE A DAY, NOTES: NOT LATELY NOT-TAKING ACETAMINOPHEN PM 500-25 MG TABLET 1 TABLET AT BEDTIME NEEDED ORALLY ONCE A DAY, NOTES: NOT LATELY NOT-TAKING VITAMIN D-3 5000 UNIT TABLET 1 TABLET ORALLY ONCE A DAY MEDICATION LIST REVIEWED AND RECONCILED WITH THE PATIENT PAST MEDICAL HISTORY HYPERTENSION CHRONIC DRY EYE PSORIASIS ARTHRITIS HYPERLIPIDEMIA OBESITY CLIFFORD ALLERGIES LACTOSE: NAUSEA/VOMITING - ALLERGY SURGICAL HISTORY HYSTERECTOMY BLADDER REPAIR BOWEL SURGERY RIGHT HIP FAMILY HISTORY FATHER: , DIAGNOSED WITH HYPERTENSION, HEART DISEASE MOTHER: ALIVE, CANCER SISTER - DUE TO DM. SOCIAL HISTORY GENERAL: TOBACCO USE ARE YOU A:NONSMOKER PAIN CLINIC PFS, CLERGY, PUBLIC HEALTH REFERRALS WAS THE PROVIDER NOTIFIED OF ANY PERTINENT INFO?YES HAS THE PATIENT BEEN EDUCATED REGARDING HIS/HER PLAN OF CARE?YES HAS THE PATIENT BEEN EDUCATED REGARDING PAIN, THE RISK FOR PAIN, THE IMPORTANCE OF EFFECTIVE PAIN MANAGEMENT, AND THE PAIN ASSESSMENT PROCESS?YES LATEX QUESTIONNAIRE LATEX ALLERGY : HAVE YOU EVER DEVELOPED ANY TYPE OF REACTION AFTER HANDLING LATEX PRODUCTS SUCH RUBBER GLOVES, CONDOMS, DIAPHRAGMS, BALLOONS, SOCKS, OR UNDERWEAR?NO LATEX ALLERGY : HAVE YOU EVER DEVELOPED ANY TYPE OF REACTION DURING OR AFTER DENTAL APPOINTMENT, VAGINAL/RECTAL EXAMINATION, SURGICAL PROCEDURE, OR ANY OTHER EXPOSURE?NO LATEX RISK : HAVE YOU EVER HAD ANY DIFFICULTY BREATHING OR HIVES AFTER EATING OR HANDLING ANY FRUITS, OR VEGETABLES; SUCH KIWI, BANANAS, STONE FRUITS, OR CHESTNUTSNO LATEX RISK : DO YOU HAVE A PREVIOUS PERSONAL HISTORY OF MORE THAN NINE SURGERIES, SPINA BIFIDA, OR REPEATED CATHERIZATIONS? NO LATEX RISK : ARE YOU FREQUENTLY EXPOSED TO LATEX PRODUCTS IN YOUR OCCUPATION?NO DATE ASKED : 02/26/2019 ADVANCE DIRECTIVE ADVANCE DIRECTIVE DISCUSSED WITH PATIENT:YES HCP ENA MATHIAS DIET: REGULAR. CAODAISM CAODAISM NO CHRISTIAN BELIEFS THAT WOULD IMPACT HEALTH CARE. LANGUAGE LANGUAGES SPOKEN:AUSTRALIAN NEW PATIENT PAIN DIARY PATIENT DESCRIBES PAIN :ACHING, HAVE IT ALL THE TIME, STABBING, SHOOTING FROM 0-10, WHAT LEVEL IS YOUR PAIN TODAY?8 PRECIPITATING FACTORS PAIN HAS INCREASED OVER LAST TWO YEARS, WALKING INCREASES PAIN. HOUSEWORK, STANDING IN PLACE, BENDING, LIFTING, SWEEPING AND MOPPING ALLEVIATING FACTORS SITTING WITH LEGS ELEVATED, USING CANE, WEARING BACK SUPPORT AND LYING DOWN IMPACT ON FUNCTION DECREASED ABILITY TO DO DAILY ACTIVITIES IS THERE A CHANCE YOU COULD BE ?NO HAVE YOU BEEN SICK IN THE LAST WEEK (COLD, COUGH, FEVER, FLU, ETC)NO DO YOU TAKE ANY BLOOD THINNERS?NO DO YOU HAVE ANY RASHES OR OPEN SORES?NO ANY CHANGE IN BOWEL OR BLADDER CONTROL?NO ARE YOU ALLERGIC TO SHELLFISH OR IV DYE?NO ARE YOU DIABETIC?NO DO YOU HAVE A PACEMAKER OR DEFIBRILLATOR?NO ANY NEW PROBLEMS WITH MEDICINES OR NEW ALLERGIESNO ANY NEW PATTERNS OF PAIN OR NUMBNESS?YES ANY CHANGE IN YOUR MEDICAL CONDITION?NO HAVE YOU FALLEN IN THE LAST 6 MONTHS?NO DO YOU USE ANY TYPE OF TOBACCO (SMOKE, SMOKELESS, CHEW, ETC.)NO ARE YOU ABUSED, NEGLECTED, OR IN AN UNSAFE ENVIRONMENT?NO DO YOU HAVE THOUGHTS OF HURTING YOURSELF OR SOMEONE ELSE?NO DO YOU NEED ANY PRESCRIPTIONS?NO DO YOU HAVE ANY OTHER QUESTIONS OR CONCERNS?NO RECREATIONAL DRUG USE DRUG USE?NO LEARNING BARRIERS / SPECIAL NEEDS BARRIERS TO LEARNING?NO HEARING IMPAIRED?NO VISION IMPAIRED?YES :CORRECTIVE LENSES COGNITIVELY IMPAIRED?NO READINESS TO LEARN?YES REVIEWED WITH PT 02/26/19 1224 BVREVIEWED WITH PT 06/15/19 1420 LAS. HOSPITALIZATION/MAJOR DIAGNOSTIC PROCEDURE NO HOSPITALIZATION HISTORY. REVIEW OF SYSTEMS REVIEWED BY: PROVIDER: . CONSTITUTIONAL: ANY CHANGE IN YOUR MEDICAL CONDITION? NO . CHILLS NO . FEVER NO . INFECTION: DO YOU HAVE NEW INFECTIONS? NO . DO YOU HAVE HISTORY OF MRSA? NO . MUSCULOSKELETAL: ANY NEW PATTERNS OF PAIN OR NUMBNESS? YES PT REPORTS PAIN HAS INCREASED . GASTROENTEROLOGY: ANY NEW CHANGE IN BOWEL CONTROL? NO . GENITOURINARY: ANY NEW CHANGE IN BLADDER CONTROL? NO . IS THERE A CHANCE YOU COULD BE ? NO . HEMATOLOGY/LYMPH: DO YOU TAKE ANY BLOOD THINNERS? (FOR EXAMPLE- COUMADIN, PLAVIX, AGGRENOX, PLATEL, PRADAXA, OR XARELTO) NO . WHEN WAS YOUR LAST DOSE? DATE: TIME: . NEUROLOGY: HAVE YOU FALLEN IN THE PAST 12 MONTHS? NO . ANY NEW EXTREMITY NUMBNESS OR WEAKNESS? NO . CARDIOLOGY: DO YOU HAVE A PACEMAKER OR DEFIBRILLATOR? NO . RESPIRATORY: HAVE YOU BEEN SICK IN THE PAST WEEK? NO . FEVER NO . FLU LIKE SYMPTOMS? NO . COUGH NO . INTEGUMENTARY: DO YOU HAVE ANY RASHES OR OPEN SORES? NO . ALLERGIC/IMMUNO: ARE YOU ALLERGIC TO IV DYE? NO . ANY NEW ALLERGIES? NO . PSYCHIATRIC: DO YOU HAVE THOUGHTS OF HURTING YOURSELF OR SOMEONE ELSE? NO . ARE YOU ABUSED, NEGLECTED, OR IN AN UNSAFE ENVIRONMENT? NO . ENDOCRINOLOGY: ARE YOU DIABETIC? NO . OTHER: DO YOU NEED ANY PRESCRIPTIONS? NO . IF YES, PLEASE LIST: ____ . ANY NEW PROBLEMS WITH YOUR MEDICATIONS? NO . WHEN DID YOU LAST EAT? ____06/15 800 . WHEN DID YOU LAST DRINK? ____06/15/19 08 . WHAT DID YOU LAST DRINK? ____COFFEE . NAME OF PERSON DRIVING YOU HOME? ____JOHN . DO YOU HAVE ANY OTHER QUESTIONS OR CONCERNS NO . VITAL SIGNS WT 171.6 LBS, HT 61 IN, BMI 32.42 INDEX, BP 143/77 MM HG, HR 55 /MIN, RR 16 /MIN, TEMP 96.8 F, OXYGEN SAT % 95%, SAFE IN ENV? (Y/N) YES, NA INITIALS AW 1359, REVIEWED BY: ELLIE. ASSESSMENTS MYALGIA, OTHER SITE - M79.18 (PRIMARY) PROCEDURES PN TRIGGER POINT INJECTION WITH STEROIDS PRE PROCEDURE DIAGNOSIS 1. MYALGIA 2. PAIN AT BILATERAL THORACIC AREA POST PROCEDURE DIAGNOSIS 1. MYALGIA 2. PAIN AT BILATERAL THORACIC AREA PROCEDURE TRIGGER POINT INJECTION AT RIGHT AND LEFT THORACIC AREA SURGEON DR. MACEY HARDEN BOX SEALING MACHINE FEEDER NONE ANESTHESIA LOCAL PRE PROCEDURE NOTE THE PATIENT HAS A HISTORY OF CHRONIC PAIN AT THE RIGHT AND LEFT THORACIC AREA. I EVALUATED THE PATIENT AND REVIEWED THE CHART. THERE IS EVIDENCE OF BANDS OF TISSUE WITH RESTRICTION OF MOVEMENT AND PRESENCE OF TRIGGER POINT AT THE AFFECTED AREA. I WENT OVER THE RISKS, ALTERNATIVES, AND BENEFITS ASSOCIATED WITH THIS PROCEDURE. THE PATIENT WOULD LIKE TO PROCEED AND GIVE CONSENT TO PERFORMED THE PROCEDURE. THE PATIENT DENIES UNEXPLAINABLE WEIGHT LOSS, FEVER, CHILLS, OR NEW CHANGES IN URINARY OR BOWEL CONTROL DESCRIPTION OF PROCEDURE THE PATIENT WAS BROUGHT TO THE PROCEDURE ROOM AND PLACED IN THE SITTING POSITION. THE AREA WAS CLEANED WITH ALCOHOL. THE PROCEDURE WAS DONE USING ASEPTIC STERILE TECHNIQUE. I CHECKED LATERALITY AND THE LEVEL WHERE THE PROCEDURE WAS GOING TO BE PERFORMED WITH THE PATIENT AND THE SUPPORTING STAFF AT THE MOMENT OF THE TIME OUT IN THE PROCEDURE ROOM. USING A 25-GAUGE NEEDLE, TRIGGER POINTS WERE INJECTED AT THE RIGHT AND LEFT THORACIC AREA WITH A TOTAL OF 40 ML OF BUPIVACAINE 0.25% AND KENALOG 40 MG. THERE WAS NO EVIDENCE OF BLOOD, PARESTHESIA OR CEREBROSPINAL FLUID DURING THE PROCEDURE. THE PATIENT WAS SENT TO THE RECOVERY ROOM. THE PATIENT WAS MOVING THE EXTREMITIES AND DOING WELL. THERE WAS NO COMPLICATION DURING THE PROCEDURE POST PROCEDURE NOTE THE PATIENT WILL BE SEEN IN A FOLLOW UP IN THE NEXT FEW WEEKS. INSTRUCTIONS WERE GIVEN, QUESTIONS WERE ANSWERED, AND THE PATIENT EXPRESSED UNDERSTANDING AND AGREES WITH THE PLAN. I, LICO MACIEL, DOCUMENTED THE ABOVE INFORMATION ACTING A SCRIBE FOR DR. HARDEN. I HAVE REVIEWED THE ABOVE DOCUMENT, WRITTEN BY LICO BABB AND I VERIFY THAT IT IS ACCURATE. PROCEDURE CODES 41726 INJ TRIGGER POINT / MUSC DISPOSITION & COMMUNICATION FOLLOW UP 3 WEEKS ELECTRONICALLY SIGNED BY MACEY HARDEN MD, MD ON 06/21/2019 AT 01:36 PM EDT DISCLAIMER : THIS IS A VISIT SUMMARY EXTRACTED FROM THE [facility] CHART. IT IS NOT A COPY OF THE [facility] PROGRESS NOTE. DAVID
== END ==
LOC: M PAIN 14:00
PROVIDERS: ATTEND Anesthesiology
DX: G89.29 Other chronic pain (principal); M79.18 Myalgia, other site; M54.6 Pain in thoracic spine; Z79.899 Other long term (current) drug therapy; Z91.018 Allergy to other foods
CPT/HCPCS: 20552; J3301

== ENCOUNTER → 2019-06-19 | Outpatient (CLI) | payer MEDICARE ==
[~2019-06-19] MED LIST changes: -BUPIVACAINE HCL 0.25% 10 ML VIAL As Ordered ONE; -BUPIVACAINE HCL 0.25% 30 ML VIAL As Ordered ONE; -TRIAMCINOLONE ACETONIDE SUSP 40 MG/ML VIAL (J3301) As Ordered ONE; -diazePAM 5 MG TAB As Ordered ONE; -oxyCODONE 5MG TAB As Ordered ONE
--- NOTE | 2019-06-22 23:45 | ECWPNPC ---
PATIENT NAME: WENDY MATHIAS V : 1940 GENDER: FEMALE VISIT DATE: 06/19/2019 DISCHARGE DATE: 06/19/19 1631 VISIT LOCKED DATE TIME: PHYSICIAN: MACEY HARDEN MD RESOURCE: MACEY HARDEN MD REASON FOR APPOINTMENT 1. PRE SEDATE HISTORY OF PRESENT ILLNESS HISTORY OF PRESENT ILLNESS: PAIN THE PATIENT DESCRIBES THE PAIN... 78 YEAR OLD FEMALE PATIENT WITH A HISTORY OF CHRONIC LOW BACK PAIN. THE PATIENT DESCRIBES THE PAIN ACHING, BURNING, STABBING, SHOOTING, AND DAILY WITH A PAIN SCORE OF 7-9/10 DEPENDING ON PHYSICAL ACTIVITY. THE PATIENT STATES HER PAIN IS IN HER LOWER BACK AREA, MAINLY ON THE LEFT SIDE. PATIENT DENIES UNEXPLAINABLE WEIGHT LOSS, FEVER, CHILLS, NEW CHANGES ON HER URINARY OR BOWEL CONTROL. FALL RISK SCREENING: SCREENING :NO FALLS REPORTED IN THE LAST YEAR CURRENT MEDICATIONS TAKING GABAPENTIN 100 MG CAPSULE 1 CAPSULE ORALLY FOR PAIN BEFORE BEDTIME, NOTES: 06/14/19 2100 TAKING LOSARTAN POTASSIUM 100 MG TABLET 1 TABLET ORALLY ONCE A DAY TAKING AMLODIPINE BESYLATE 10 MG TABLET 1 TABLET ORALLY ONCE A DAY TAKING HYDROCHLOROTHIAZIDE 25 MG TABLET 1 TABLET IN THE MORNING ORALLY ONCE A DAY TAKING ATENOLOL 50 MG TABLET 1 TABLET ORALLY ONCE A DAY AT BEDTIME TAKING ATORVASTATIN CALCIUM 20 MG TABLET 1 TABLET ORALLY ONCE A DAY AT BEDTIME TAKING CALCIUM 1 TAB ORAL DAILY TAKING MAGNESIUM 100 MG TABLET 4 TABLETS WITH A MEAL ORALLY ONCE A DAY TAKING LUTEIN 20 - CAPSULE ORALLY DAILY, NOTES: NOT LATELY TAKING VITAMIN E 400 UNIT CAPSULE 1 CAPSULE ORALLY ONCE A DAY TAKING VISION VITAMINS - TABLET ORALLY DAILY TAKING OMEGA 3 1000 MG CAPSULE 1 CAPSULE ORALLY ONCE A DAY TAKING MELATONIN 3 MG TABLET 1 TABLET AT BEDTIME NEEDED WITH FOOD ORALLY ONCE A DAY TAKING MAY USE CBD OIL GUMMIES ORALLY PRN TAKING POTASSIUM CHLORIDE ER 10 MEQ TABLET EXTENDED RELEASE 1 TABLET WITH FOOD ORALLY TWICE A DAY NOT-TAKING ACETAMINOPHEN ER 650 MG TABLET EXTENDED RELEASE 2 TABLETS NEEDED ORALLY EVERY 8 HRS NOT-TAKING CELECOXIB 200 MG CAPSULE 1 CAPSULE WITH FOOD ORALLY ONCE A DAY, NOTES: NOT LATELY NOT-TAKING ACETAMINOPHEN PM 500-25 MG TABLET 1 TABLET AT BEDTIME NEEDED ORALLY ONCE A DAY, NOTES: NOT LATELY NOT-TAKING VITAMIN D-3 5000 UNIT TABLET 1 TABLET ORALLY ONCE A DAY MEDICATION LIST REVIEWED AND RECONCILED WITH THE PATIENT PAST MEDICAL HISTORY HYPERTENSION CHRONIC DRY EYE PSORIASIS ARTHRITIS HYPERLIPIDEMIA OBESITY CLIFFORD FRACTURE COCCYX AGE 11 ALLERGIES LACTOSE: NAUSEA/VOMITING - ALLERGY ASPIRIN: PRICKLY SENSATION IN ABDOMEN - SIDE EFFECTS BAND-AID: SKIN REACTION - SIDE EFFECTS SURGICAL HISTORY HYSTERECTOMY BLADDER REPAIR BOWEL SURGERY RIGHT HIP 2016 RIGHT SHOULDER REPLACEMENT 2017 LEFT SHOULDER REPLACEMENT 2017 FAMILY HISTORY FATHER: , DIAGNOSED WITH HYPERTENSION, HEART DISEASE MOTHER: , CANCER SISTER - DUE TO DM. SOCIAL HISTORY GENERAL: TOBACCO USE ARE YOU A:NONSMOKER PAIN CLINIC PFS, CLERGY, PUBLIC HEALTH REFERRALS WAS THE PROVIDER NOTIFIED OF ANY PERTINENT INFO?YES HAS THE PATIENT BEEN EDUCATED REGARDING HIS/HER PLAN OF CARE?YES HAS THE PATIENT BEEN EDUCATED REGARDING PAIN, THE RISK FOR PAIN, THE IMPORTANCE OF EFFECTIVE PAIN MANAGEMENT, AND THE PAIN ASSESSMENT PROCESS?YES LATEX QUESTIONNAIRE LATEX ALLERGY : HAVE YOU EVER DEVELOPED ANY TYPE OF REACTION AFTER HANDLING LATEX PRODUCTS SUCH RUBBER GLOVES, CONDOMS, DIAPHRAGMS, BALLOONS, SOCKS, OR UNDERWEAR?YES - PLEASE INDICATE :OTHER (DOCUMENT IN NOTES) BANDAIDS CAUSE SEVERE SKIN REACTION LATEX ALLERGY : HAVE YOU EVER DEVELOPED ANY TYPE OF REACTION DURING OR AFTER DENTAL APPOINTMENT, VAGINAL/RECTAL EXAMINATION, SURGICAL PROCEDURE, OR ANY OTHER EXPOSURE?NO LATEX RISK : HAVE YOU EVER HAD ANY DIFFICULTY BREATHING OR HIVES AFTER EATING OR HANDLING ANY FRUITS, OR VEGETABLES; SUCH KIWI, BANANAS, STONE FRUITS, OR CHESTNUTSNO LATEX RISK : DO YOU HAVE A PREVIOUS PERSONAL HISTORY OF MORE THAN NINE SURGERIES, SPINA BIFIDA, OR REPEATED CATHERIZATIONS? NO LATEX RISK : ARE YOU FREQUENTLY EXPOSED TO LATEX PRODUCTS IN YOUR OCCUPATION?NO DATE ASKED : 06/19/2019 ADVANCE DIRECTIVE ADVANCE DIRECTIVE DISCUSSED WITH PATIENT:YES HCP ENA MATHIAS DIET: REGULAR, MINIMAL DAIRY. RASTAFARIAN [id number] HOLINESS NO LATTER DAY BELIEFS THAT WOULD IMPACT HEALTH CARE. LANGUAGE LANGUAGES SPOKEN:FRENCH NEW PATIENT PAIN DIARY PATIENT DESCRIBES PAIN :ACHING, HAVE IT ALL THE TIME, STABBING, SHOOTING FROM 0-10, WHAT LEVEL IS YOUR PAIN TODAY?8 PRECIPITATING FACTORS PAIN HAS INCREASED OVER LAST TWO YEARS, WALKING INCREASES PAIN. HOUSEWORK, STANDING IN PLACE, BENDING, LIFTING, SWEEPING AND MOPPING ALLEVIATING FACTORS SITTING WITH LEGS ELEVATED, USING CANE, WEARING BACK SUPPORT AND LYING DOWN IMPACT ON FUNCTION DECREASED ABILITY TO DO DAILY ACTIVITIES IS THERE A CHANCE YOU COULD BE ?NO HAVE YOU BEEN SICK IN THE LAST WEEK (COLD, COUGH, FEVER, FLU, ETC)NO DO YOU TAKE ANY BLOOD THINNERS?NO DO YOU HAVE ANY RASHES OR OPEN SORES?NO ANY CHANGE IN BOWEL OR BLADDER CONTROL?NO ARE YOU ALLERGIC TO SHELLFISH OR IV DYE?NO ARE YOU DIABETIC?NO DO YOU HAVE A PACEMAKER OR DEFIBRILLATOR?NO ANY NEW PROBLEMS WITH MEDICINES OR NEW ALLERGIESNO ANY NEW PATTERNS OF PAIN OR NUMBNESS?YES ANY CHANGE IN YOUR MEDICAL CONDITION?NO HAVE YOU FALLEN IN THE LAST 6 MONTHS?NO DO YOU USE ANY TYPE OF TOBACCO (SMOKE, SMOKELESS, CHEW, ETC.)NO ARE YOU ABUSED, NEGLECTED, OR IN AN UNSAFE ENVIRONMENT?NO DO YOU HAVE THOUGHTS OF HURTING YOURSELF OR SOMEONE ELSE?NO DO YOU NEED ANY PRESCRIPTIONS?NO DO YOU HAVE ANY OTHER QUESTIONS OR CONCERNS?NO RECREATIONAL DRUG USE DRUG USE?NO LEARNING BARRIERS / SPECIAL NEEDS BARRIERS TO LEARNING?NO HEARING IMPAIRED?NO VISION IMPAIRED?YES :CORRECTIVE LENSES COGNITIVELY IMPAIRED?NO READINESS TO LEARN?YES REVIEWED WITH PT 02/26/19 1224 BVREVIEWED WITH PT 06/15/19 1420 LAS. HOSPITALIZATION/MAJOR DIAGNOSTIC PROCEDURE SURGERIES REVIEW OF SYSTEMS REVIEWED BY: PROVIDER: MACEY HARDEN MD . CONSTITUTIONAL: ANY CHANGE IN YOUR MEDICAL CONDITION? NO . CHILLS NO . FEVER NO . INFECTION: DO YOU HAVE NEW INFECTIONS? NO . DO YOU HAVE HISTORY OF MRSA? NO . MUSCULOSKELETAL: ANY NEW PATTERNS OF PAIN OR NUMBNESS? NO . GASTROENTEROLOGY: ANY NEW CHANGE IN BOWEL CONTROL? NO . GENITOURINARY: ANY NEW CHANGE IN BLADDER CONTROL? NO . IS THERE A CHANCE YOU COULD BE ? NO . HEMATOLOGY/LYMPH: DO YOU TAKE ANY BLOOD THINNERS? (FOR EXAMPLE- COUMADIN, PLAVIX, AGGRENOX, PLATEL, PRADAXA, OR XARELTO) NO . WHEN WAS YOUR LAST DOSE? DATE: TIME: . NEUROLOGY: HAVE YOU FALLEN IN THE PAST 12 MONTHS? NO . ANY NEW EXTREMITY NUMBNESS OR WEAKNESS? NO . CARDIOLOGY: DO YOU HAVE A PACEMAKER OR DEFIBRILLATOR? NO . RESPIRATORY: HAVE YOU BEEN SICK IN THE PAST WEEK? NO . FEVER NO . FLU LIKE SYMPTOMS? NO . COUGH NO . INTEGUMENTARY: DO YOU HAVE ANY RASHES OR OPEN SORES? NO . ALLERGIC/IMMUNO: ARE YOU ALLERGIC TO IV DYE? NO . ANY NEW ALLERGIES? NO . PSYCHIATRIC: DO YOU HAVE THOUGHTS OF HURTING YOURSELF OR SOMEONE ELSE? NO . ARE YOU ABUSED, NEGLECTED, OR IN AN UNSAFE ENVIRONMENT? NO . ENDOCRINOLOGY: ARE YOU DIABETIC? NO . OTHER: DO YOU NEED ANY PRESCRIPTIONS? NO . IF YES, PLEASE LIST: ____ . ANY NEW PROBLEMS WITH YOUR MEDICATIONS? NO . WHEN DID YOU LAST EAT? ____ . WHEN DID YOU LAST DRINK? ____ . WHAT DID YOU LAST DRINK? ____ . NAME OF PERSON DRIVING YOU HOME? ____ . DO YOU HAVE ANY OTHER QUESTIONS OR CONCERNS NO . VITAL SIGNS WT 169.4 LBS, HT 61 IN, BMI 32.00 INDEX, BP 143/69 MM HG, HR 56 /MIN, RR 16 /MIN, TEMP 98.2 F, OXYGEN SAT % 93%, NA INITIALS AW 1452, REVIEWED BY: LS. EXAMINATION GENERAL EXAMINATION: PATIENT IS ALERT O X 3 AND COOPERATIVE. LUNGS CLEAR, TO AUSCULTATION. HEART: NO MURMURS OR GALLOPS; FACIAL CRANIAL NERVES ARE GROSSLY NORMAL. GOOD SYMMETRY OF FACIAL MUSCLE MOVEMENT. NORMAL VISUAL KELLY. TENDERNESS IN THE LOW BACK OVER THE SACROILIAC JOINT. FABERE TEST IS POSITIVE FOR LEFT SACROILIAC JOINT DYSFUNCTION. MRI OF THE LUMBAR SPINE DONE ON 07/09/2017 SHOWS FACET ARTHROPATHY CHANGES. 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 MATHIAS' PAIN MANAGEMENT CASE. DUE TO THE SACROILIAC JOINT DYSFUNCTION, I WOULD LIKE TO MOVE FORWARD WITH A BILATERAL SACROILIAC JOINT BLOCK AT THIS TIME. THE PATIENT WOULD LIKE TO MOVE FORWARD WITH IV SEDATION DUE TO DISCOMFORT, PAIN, AND ANXIETY ASSOCIATED WITH THE PROCEDURE. WE DISCUSSED THE BENEFITS, RISKS, AND ALTERNATIVES OF THE INJECTION AND THE PATIENT WOULD LIKE TO PROCEED. I AM LOOKING FOR LONG LAST PAIN RELIEF FROM THIS PROCEDURE FOR THE PATIENT. THE PATIENT WILL FOLLOW UP IN SEVERAL WEEKS AFTER THE INJECTION. INSTRUCTIONS WERE GIVEN, QUESTIONS WERE ANSWERED, PATIENT REPORTS UNDERSTANDING AND AGREES WITH THE PLAN. I, SHANITA JUÁREZ, DOCUMENTED THE ABOVE INFORMATION ACTING A SCRIBE FOR DR. HARDEN. I HAVE REVIEWED THE ABOVE DOCUMENT, WRITTEN BY SHANITA JUÁREZ [employer] AND I VERIFY THAT IT IS ACCURATE. . PROCEDURE CODES FA211 ESTABILISHED PATIENT [facility] FACILITY CHARGE G1371 CURRENT MEDS W/DOSAGES DOCUMENTED [id number] PAIN ASSESS POS TOOL F/U PLAN DOC DISPOSITION & COMMUNICATION FOLLOW UP 3 WEEKS (REASON: MERT SIJ BLOCK W/ IV SEDATE) ELECTRONICALLY SIGNED BY MACEY HARDEN MD, MD ON 06/22/2019 AT 05:03 PM EDT DISCLAIMER : THIS IS A VISIT SUMMARY EXTRACTED FROM THE [employer] CHART. IT IS NOT A COPY OF THE [facility] PROGRESS NOTE. MTDD
== END ==
LOC: M PAIN 14:45
PROVIDERS: ATTEND Anesthesiology
DX: M46.1 Sacroiliitis, not elsewhere classified (principal); M53.3 Sacrococcygeal disorders, not elsewhere classified; G89.29 Other chronic pain; I10 Essential (primary) hypertension; M19.90 Unspecified osteoarthritis, unspecified site; E78.5 Hyperlipidemia, unspecified; G47.33 Obstructive sleep apnea (adult) (pediatric); Z96.611 Presence of right artificial shoulder joint; Z96.612 Presence of left artificial shoulder joint; Z88.6 Allergy status to analgesic agent; Z91.011 Allergy to milk products; Z91.09 Other allergy status, other than to drugs and biological substances; Z79.899 Other long term (current) drug therapy

== ENCOUNTER → 2019-06-27 | Outpatient (CLI) | payer MEDICARE ==
[~2019-06-27] MED LIST changes: +BUPIVACAINE HCL 0.25% 30 ML VIAL As Ordered ONE; +ISOVUE-M 300 61% 15ML VIAL (Q9967) As Ordered ONE; +LIDOCAINE 1% SDV INJ 30 ML VIAL As Ordered ONE; +MIDAZOLAM INJ 2 MG/2 ML VIAL (J2250) As Ordered ONE; +TRIAMCINOLONE ACETONIDE SUSP 40 MG/ML VIAL (J3301) As Ordered ONE; +fentaNYL 100 MCG/2 ML INJECTION (J3010) As Ordered ONE
--- NOTE | 2019-06-27 13:28 | REP ---
SI joint series: Two views. History: Bilateral SI joint injection for pain. 20 seconds of fluoroscopy time reported. Findings: A sequence of two last image hold fluoroscopically obtained spot radiographs of the SI joints document needle injection position. Electronically Signed by Luis Kowalski MD 06/27/2019 01:19 P
--- NOTE | 2019-07-11 00:48 | ECWPNPC ---
PATIENT NAME: WENDY MATHIAS V : 1940 GENDER: FEMALE VISIT DATE: 06/27/2019 DISCHARGE DATE: 06/27/19 1333 VISIT LOCKED DATE TIME: PHYSICIAN: MACEY HARDEN MD RESOURCE: MACEY HARDEN MD REASON FOR APPOINTMENT 1. MERT SIJ WITH IV SEDATION HISTORY OF PRESENT ILLNESS HISTORY OF PRESENT ILLNESS: PAIN THE PATIENT DESCRIBES THE PAIN... FALL RISK SCREENING: SCREENING :NO FALLS REPORTED IN THE LAST YEAR CURRENT MEDICATIONS TAKING GABAPENTIN 100 MG CAPSULE 1 CAPSULE ORALLY FOR PAIN BEFORE BEDTIME, NOTES: 06/26/192099 TAKING LOSARTAN POTASSIUM 100 MG TABLET 1 TABLET ORALLY ONCE A DAY TAKING AMLODIPINE BESYLATE 10 MG TABLET 1 TABLET ORALLY ONCE A DAY TAKING HYDROCHLOROTHIAZIDE 25 MG TABLET 1 TABLET IN THE MORNING ORALLY ONCE A DAY TAKING ATENOLOL 50 MG TABLET 1 TABLET ORALLY ONCE A DAY AT BEDTIME TAKING ATORVASTATIN CALCIUM 20 MG TABLET 1 TABLET ORALLY ONCE A DAY AT BEDTIME TAKING CALCIUM 1 TAB ORAL DAILY TAKING MAGNESIUM 100 MG TABLET 4 TABLETS WITH A MEAL ORALLY ONCE A DAY TAKING LUTEIN 20 - CAPSULE ORALLY DAILY, NOTES: NOT LATELY TAKING VITAMIN E 400 UNIT CAPSULE 1 CAPSULE ORALLY ONCE A DAY TAKING VISION VITAMINS - TABLET ORALLY DAILY TAKING OMEGA 3 1000 MG CAPSULE 1 CAPSULE ORALLY ONCE A DAY TAKING MELATONIN 3 MG TABLET 1 TABLET AT BEDTIME NEEDED WITH FOOD ORALLY ONCE A DAY TAKING MAY USE CBD OIL GUMMIES ORALLY PRN TAKING POTASSIUM CHLORIDE ER 10 MEQ TABLET EXTENDED RELEASE 1 TABLET WITH FOOD ORALLY TWICE A DAY NOT-TAKING ACETAMINOPHEN ER 650 MG TABLET EXTENDED RELEASE 2 TABLETS NEEDED ORALLY EVERY 8 HRS NOT-TAKING CELECOXIB 200 MG CAPSULE 1 CAPSULE WITH FOOD ORALLY ONCE A DAY, NOTES: NOT LATELY NOT-TAKING ACETAMINOPHEN PM 500-25 MG TABLET 1 TABLET AT BEDTIME NEEDED ORALLY ONCE A DAY, NOTES: NOT LATELY NOT-TAKING VITAMIN D-3 5000 UNIT TABLET 1 TABLET ORALLY ONCE A DAY MEDICATION LIST REVIEWED AND RECONCILED WITH THE PATIENT PAST MEDICAL HISTORY HYPERTENSION CHRONIC DRY EYE PSORIASIS ARTHRITIS HYPERLIPIDEMIA OBESITY CLIFFORD FRACTURE COCCYX AGE 11 ALLERGIES LACTOSE: NAUSEA/VOMITING - ALLERGY ASPIRIN: PRICKLY SENSATION IN ABDOMEN - SIDE EFFECTS BAND-AID: SKIN REACTION - SIDE EFFECTS SURGICAL HISTORY HYSTERECTOMY BLADDER REPAIR BOWEL SURGERY RIGHT HIP 2016 RIGHT SHOULDER REPLACEMENT 2017 LEFT SHOULDER REPLACEMENT 2016 FAMILY HISTORY FATHER: , DIAGNOSED WITH HYPERTENSION, UNSPECIFIED HEART DISEASE MOTHER: , OTHER MALIGNANT NEOPLASM OF UNSPECIFIED SITE SISTER - DUE TO DM. SOCIAL HISTORY GENERAL: TOBACCO USE ARE YOU A:NONSMOKER PAIN CLINIC PFS, CLERGY, PUBLIC HEALTH REFERRALS WAS THE PROVIDER NOTIFIED OF ANY PERTINENT INFO?YES HAS THE PATIENT BEEN EDUCATED REGARDING HIS/HER PLAN OF CARE?YES HAS THE PATIENT BEEN EDUCATED REGARDING PAIN, THE RISK FOR PAIN, THE IMPORTANCE OF EFFECTIVE PAIN MANAGEMENT, AND THE PAIN ASSESSMENT PROCESS?YES LATEX QUESTIONNAIRE LATEX ALLERGY : HAVE YOU EVER DEVELOPED ANY TYPE OF REACTION AFTER HANDLING LATEX PRODUCTS SUCH RUBBER GLOVES, CONDOMS, DIAPHRAGMS, BALLOONS, SOCKS, OR UNDERWEAR?YES - PLEASE INDICATE :OTHER (DOCUMENT IN NOTES) BANDAIDS CAUSE SEVERE SKIN REACTION LATEX ALLERGY : HAVE YOU EVER DEVELOPED ANY TYPE OF REACTION DURING OR AFTER DENTAL APPOINTMENT, VAGINAL/RECTAL EXAMINATION, SURGICAL PROCEDURE, OR ANY OTHER EXPOSURE?NO LATEX RISK : HAVE YOU EVER HAD ANY DIFFICULTY BREATHING OR HIVES AFTER EATING OR HANDLING ANY FRUITS, OR VEGETABLES; SUCH KIWI, BANANAS, STONE FRUITS, OR CHESTNUTSNO LATEX RISK : DO YOU HAVE A PREVIOUS PERSONAL HISTORY OF MORE THAN NINE SURGERIES, SPINA BIFIDA, OR REPEATED CATHERIZATIONS? NO LATEX RISK : ARE YOU FREQUENTLY EXPOSED TO LATEX PRODUCTS IN YOUR OCCUPATION?NO DATE ASKED : 06/19/2019 ADVANCE DIRECTIVE ADVANCE DIRECTIVE DISCUSSED WITH PATIENT:YES HCP ENA MATHIAS DIET: REGULAR, MINIMAL DAIRY. JAINISM [id number] RESTORATIONISM NO SPIRITISM BELIEFS THAT WOULD IMPACT HEALTH CARE. LANGUAGE LANGUAGES SPOKEN:CHINESE NEW PATIENT PAIN DIARY PATIENT DESCRIBES PAIN :ACHING, HAVE IT ALL THE TIME, STABBING, SHOOTING FROM 0-10, WHAT LEVEL IS YOUR PAIN TODAY?8 PRECIPITATING FACTORS PAIN HAS INCREASED OVER LAST TWO YEARS, WALKING INCREASES PAIN. HOUSEWORK, STANDING IN PLACE, BENDING, LIFTING, SWEEPING AND MOPPING ALLEVIATING FACTORS SITTING WITH LEGS ELEVATED, USING CANE, WEARING BACK SUPPORT AND LYING DOWN IMPACT ON FUNCTION DECREASED ABILITY TO DO DAILY ACTIVITIES IS THERE A CHANCE YOU COULD BE ?NO HAVE YOU BEEN SICK IN THE LAST WEEK (COLD, COUGH, FEVER, FLU, ETC)NO DO YOU TAKE ANY BLOOD THINNERS?NO DO YOU HAVE ANY RASHES OR OPEN SORES?NO ANY CHANGE IN BOWEL OR BLADDER CONTROL?NO ARE YOU ALLERGIC TO SHELLFISH OR IV DYE?NO ARE YOU DIABETIC?NO DO YOU HAVE A PACEMAKER OR DEFIBRILLATOR?NO ANY NEW PROBLEMS WITH MEDICINES OR NEW ALLERGIESNO ANY NEW PATTERNS OF PAIN OR NUMBNESS?YES ANY CHANGE IN YOUR MEDICAL CONDITION?NO HAVE YOU FALLEN IN THE LAST 6 MONTHS?NO DO YOU USE ANY TYPE OF TOBACCO (SMOKE, SMOKELESS, CHEW, ETC.)NO ARE YOU ABUSED, NEGLECTED, OR IN AN UNSAFE ENVIRONMENT?NO DO YOU HAVE THOUGHTS OF HURTING YOURSELF OR SOMEONE ELSE?NO DO YOU NEED ANY PRESCRIPTIONS?NO DO YOU HAVE ANY OTHER QUESTIONS OR CONCERNS?NO RECREATIONAL DRUG USE DRUG USE?NO LEARNING BARRIERS / SPECIAL NEEDS BARRIERS TO LEARNING?NO HEARING IMPAIRED?NO VISION IMPAIRED?YES COGNITIVELY IMPAIRED?NO :CORRECTIVE LENSES READINESS TO LEARN?YES REVIEWED WITH PT 02/26/19 1224 BVREVIEWED WITH PT 06/15/19 1420 LASREVIEWED WITH PATIENT 06/27/2019 1100 LAS. HOSPITALIZATION/MAJOR DIAGNOSTIC PROCEDURE SURGERIES REVIEW OF SYSTEMS REVIEWED BY: PROVIDER: . CONSTITUTIONAL: ANY CHANGE IN YOUR MEDICAL CONDITION? NO . CHILLS NO . FEVER NO . INFECTION: DO YOU HAVE NEW INFECTIONS? NO . DO YOU HAVE HISTORY OF MRSA? NO . MUSCULOSKELETAL: ANY NEW PATTERNS OF PAIN OR NUMBNESS? NO . GASTROENTEROLOGY: ANY NEW CHANGE IN BOWEL CONTROL? NO . GENITOURINARY: ANY NEW CHANGE IN BLADDER CONTROL? NO . IS THERE A CHANCE YOU COULD BE ? NO . HEMATOLOGY/LYMPH: DO YOU TAKE ANY BLOOD THINNERS? (FOR EXAMPLE- COUMADIN, PLAVIX, AGGRENOX, PLATEL, PRADAXA, OR XARELTO) NO . WHEN WAS YOUR LAST DOSE? DATE: TIME: . NEUROLOGY: HAVE YOU FALLEN IN THE PAST 12 MONTHS? NO . ANY NEW EXTREMITY NUMBNESS OR WEAKNESS? NO . CARDIOLOGY: DO YOU HAVE A PACEMAKER OR DEFIBRILLATOR? NO . RESPIRATORY: HAVE YOU BEEN SICK IN THE PAST WEEK? NO . FEVER NO . FLU LIKE SYMPTOMS? NO . COUGH NO . INTEGUMENTARY: DO YOU HAVE ANY RASHES OR OPEN SORES? NO . ALLERGIC/IMMUNO: ARE YOU ALLERGIC TO IV DYE? NO . ANY NEW ALLERGIES? NO . PSYCHIATRIC: DO YOU HAVE THOUGHTS OF HURTING YOURSELF OR SOMEONE ELSE? NO . ARE YOU ABUSED, NEGLECTED, OR IN AN UNSAFE ENVIRONMENT? NO . ENDOCRINOLOGY: ARE YOU DIABETIC? NO . OTHER: DO YOU NEED ANY PRESCRIPTIONS? NO . IF YES, PLEASE LIST: ____ . ANY NEW PROBLEMS WITH YOUR MEDICATIONS? NO . WHEN DID YOU LAST EAT? ____9/4/19 0445 . WHEN DID YOU LAST DRINK? ____06/27/19444 . WHAT DID YOU LAST DRINK? ____WATER . NAME OF PERSON DRIVING YOU HOME? ____JOHN . DO YOU HAVE ANY OTHER QUESTIONS OR CONCERNS NO PT HAS NOT HAD ANY VACCINES IN THE PAST 30 DAYS . VITAL SIGNS WT 170.4 LBS, HT 61 IN, BMI 32.19 INDEX, BP 135/74 MM HG, HR 55 /MIN, RR 16 /MIN, TEMP 97.5 F, OXYGEN SAT % 92%, SAFE IN ENV? (Y/N) YES, NA INITIALS SC 10:53, REVIEWED BY: ELLIE. ASSESSMENTS SACROILIITIS, NOT ELSEWHERE CLASSIFIED - M46.1 (PRIMARY) TREATMENT SACROILIITIS, NOT ELSEWHERE CLASSIFIED [facility] FL[facility]O GUIDANCE (PAIN)[id number] PROCEDURES PN SI PRE PROCEDURE DIAGNOSIS SACROILIITIS, SACROILIAC JOINT DYSFUNCTION POST PROCEDURE DIAGNOSIS SACROILIITIS, SACROILIAC JOINT DYSFUNCTION PROCEDURE BILATERAL SACROILIAC JOINT BLOCK SURGEON DR. 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 PRE PROCEDURE NOTE PATIENT WITH HISTORY OF CHRONIC LOW BACK PAIN. I EVALUATED THE PATIENT AND REVIEWED THE CHART. I WENT OVER THE RISKS, ALTERNATIVES, AND BENEFITS ASSOCIATED WITH THIS PROCEDURE. THE PATIENT WOULD LIKE TO MOVE FORWARD WITH IV SEDATION DUE TO DISCOMFORT, PAIN, AND ANXIETY ASSOCIATED WITH THE PROCEDURE. THE PATIENT WOULD LIKE TO PROCEED AND GAVE CONSENT TO PERFORM THE PROCEDURE. THE PATIENT DENIES UNEXPLAINABLE WEIGHT LOSS, FEVER, CHILLS, OR NEW CHANGES IN URINARY OR BOWEL CONTROL DESCRIPTION OF PROCEDURE THE PATIENT WAS BROUGHT TO THE PROCEDURE ROOM AND PLACED IN THE PRONE POSITION. THE LUMBOSACRAL AREA WAS CLEANED WITH CHLORAPREP SOLUTION AND DRAPED ASEPTICALLY. THE PROCEDURE WAS DONE UNDER STERILE CONDITIONS. I CHECKED LATERALITY AND THE LEVEL WHERE THE PROCEDURE WAS GOING TO BE PERFORMED WITH THE PATIENT AND THE SUPPORTING STAFF AT THE MOMENT OF THE TIME OUT IN THE PROCEDURE ROOM. UNDER FLUOROSCOPIC GUIDANCE, TARGET POINT WAS SELECTED AT THE LOWER BORDER OF THE RIGHT AND LEFT SACROILIAC JOINT. TARGET POINT WAS SELECTED AFTER MEDIAL ROTATION AND TILT OF THE MAGNIFIER OF THE C-ARM. LIDOCAINE WAS USED TO NUMB THE SKIN AND SUBCUTANEOUS TISSUE BELOW IT. A SPINAL NEEDLE, 22-GAUGE, WAS ADVANCED UNDER FLUOROSCOPIC GUIDANCE AND FOLLOWING PATIENT FEEDBACK UNTIL THE TARGET AREA WAS TOUCHED. THE POSITION OF THE NEEDLE WAS VERIFIED WITH AP AND LATERAL VIEWS. AFTER PROPER POSITION OF THE NEEDLE WAS ACHIEVED, ISOVUE M DYE 30%, 0.25 ML, WAS INJECTED SHOWING SPREAD OF THE DYE. THEN, A SOLUTION OF 30 MG OF KENALOG WAS INJECTED IN RIGHT AND LEFT JOINT WITH 3 ML OF BUPIVACAINE 0.125%. THERE WAS NO EVIDENCE OF BLOOD, PARESTHESIA OR CEREBROSPINAL FLUID DURING THE PROCEDURE. THE PATIENT WAS SENT TO THE RECOVERY ROOM. THE PATIENT WAS MOVING THE EXTREMITIES AND DOING WELL. THERE WAS NO COMPLICATION DURING THE PROCEDURE. PATIENT RECEIVED VERSED 1 MG AND FENTANYL 50 MCG IV DIVIDED DOSES. FACE TO FACE TIME WAS 15 MINUTES. FLUOROSCOPY TIME WAS 20 SECONDS POST PROCEDURE NOTE THE PATIENT WILL BE SEEN IN A FOLLOW UP IN THE NEXT FEW WEEKS. INSTRUCTIONS WERE GIVEN, QUESTIONS WERE ANSWERED, AND THE PATIENT EXPRESSED UNDERSTANDING AND AGREED WITH THE PLAN. I, SHANITA JUÁREZ, DOCUMENTED THE ABOVE INFORMATION ACTING A SCRIBE FOR DR. HARDEN. I HAVE REVIEWED THE ABOVE DOCUMENT, WRITTEN BY SHANITA JUÁREZ SCRIBE AND I VERIFY THAT IT IS ACCURATE. PROCEDURE CODES 96849 INJECT SACROILIAC JOINT, MODIFIERS: 50 [id number] RADXPS IN END [id number] PXD [id number] MOD SED SAME PHYS/QHP 5/>YRS DISPOSITION & COMMUNICATION FOLLOW UP 3 WEEKS ELECTRONICALLY SIGNED BY MACEY HARDEN MD, MD ON 07/10/2019 AT 10:43 AM EDT DISCLAIMER : THIS IS A VISIT SUMMARY EXTRACTED FROM THE [employer] CHART. IT IS NOT A COPY OF THE [employer] PROGRESS NOTE. MTDD
== END ==
LOC: M PAIN 11:15
PROVIDERS: ATTEND Anesthesiology
DX: M46.1 Sacroiliitis, not elsewhere classified (principal); I10 Essential (primary) hypertension; L40.9 Psoriasis, unspecified; E78.5 Hyperlipidemia, unspecified; E66.9 Obesity, unspecified; G47.33 Obstructive sleep apnea (adult) (pediatric); H04.129 Dry eye syndrome of unspecified lacrimal gland; Z79.899 Other long term (current) drug therapy; Z88.6 Allergy status to analgesic agent; Z91.048 Other nonmedicinal substance allergy status; Z91.018 Allergy to other foods
CPT/HCPCS: 99152; G0260; J2250; J3010; J3301; Q9967

== ENCOUNTER → 2019-07-18 | Outpatient (CLI) | payer MEDICARE ==
[~2019-07-18] MED LIST changes: -BUPIVACAINE HCL 0.25% 30 ML VIAL As Ordered ONE; +GABA-1171 PO; -ISOVUE-M 300 61% 15ML VIAL (Q9967) As Ordered ONE; +K-TA10TA PO; -LIDOCAINE 1% SDV INJ 30 ML VIAL As Ordered ONE; +MELA3TAB49 PO; -MIDAZOLAM INJ 2 MG/2 ML VIAL (J2250) As Ordered ONE; +NON-325T5 PO; +SM HTAB3 PO; -TRIAMCINOLONE ACETONIDE SUSP 40 MG/ML VIAL (J3301) As Ordered ONE; +VITA400C5 PO; +VITA500079 PO; +[UNRECOGNIZED DRUG - OTHER] PO; -fentaNYL 100 MCG/2 ML INJECTION (J3010) As Ordered ONE
[2019-07-18 10:46] LABS: HEMATOCRIT 40.4 % (36.0-47.0); HEMOGLOBIN 13.6 g/dl (12.0-15.5); MEAN CORPUSCULAR HEMOGLOBIN 31.3 pg (27.0-33.0); MEAN CORPUSCULAR HGB CONC 33.7 g/dl (32.0-36.5); MEAN CORPUSCULAR VOLUME 93.1 fl (80.0-96.0); PLATELET COUNT, AUTOMATED 253 10^3/uL (150-450); RED BLOOD COUNT 4.34 10^6/uL (4.00-5.40); WHITE BLOOD COUNT 5.3 10^3/uL (4.0-10.0)
[2019-07-18 10:59] LABS: INR 0.94; PROTHROMBIN TIME 12.3 SECONDS (11.8-14.0)
[2019-07-18 11:14] LABS: ERYTHROCYTE SEDIMENTATION RATE 11 mm/hr (0-30)
[2019-07-18 11:42] LABS: ALBUMIN 3.6 GM/DL (3.2-5.2); ALT/SGPT 34 U/L (12-78); BILIRUBIN,TOTAL 0.5 MG/DL (0.2-1.0); BLOOD UREA NITROGEN 22 MG/DL (7-18); CALCIUM LEVEL 9.6 MG/DL (8.8-10.2); CARBON DIOXIDE LEVEL 31 MEQ/L (21-32); CHLORIDE LEVEL 107 MEQ/L (98-107); CREATININE FOR GFR 0.91 MG/DL (0.55-1.30); GLOMERULAR FILTRATION RATE > 60.0 (>32); GLUCOSE, FASTING 74 MG/DL (70-100); POTASSIUM SERUM 4.1 MEQ/L (3.5-5.1); SODIUM LEVEL 143 MEQ/L (136-145); TOTAL PROTEIN 6.7 GM/DL (6.4-8.2)
--- NOTE | 2019-07-18 15:17 | REP ---
PA and lateral chest: Comparison is 11/09/2016. The lung dean are clear and unchanged. Cardiac size is upper normal, unchanged. There are calcified granulomas in the right hilus, unchanged. The mediastinum is unremarkable. There are bilateral total shoulder arthroplasties. Impression: There are no acute cardiopulmonary findings. Calcified granulomas in the right hilus. Bilateral total shoulder arthroplasties. Electronically Signed by Cameron Barr MD 07/18/2019 03:08 P
--- NOTE | 2019-07-19 21:06 | ECGEPIP ---
[facility] Test Date: 2019-07-18 Pat Name: WENDY MATHIAS Department: Room: - Gender: Female [employer] Contact Printer: DAWN : 1940 Requested By: Mychal Crandall @ [facility] Order Number: [id number] Reading MD: Damsao Peters Measurements Intervals [place] Rate: 55 P: 91 VT: 230 QRS: -18 QRSD: 90 T: 60 QT: 431 QTc: 412 Interpretive Statements Sinus bradycardia with first degree AV block Leftward axis Low QRS complex voltage in the limb leads Nonspecific ST-T wave abnormalities No significant change when compared to prior tracing of 11/09/2016 Electronically Signed on 07-19-2019 21:05:58 EDT by Damaso Peters
== END ==
LOC: M LAB 09:48
PROVIDERS: ATTEND Orthopaedic Surgery
DX: M17.11 Unilateral primary osteoarthritis, right knee (principal); Z79.01 Long term (current) use of anticoagulants

== ENCOUNTER → 2019-07-27 | Outpatient (CLI) | payer MEDICARE ==
[~2019-07-27] MED LIST changes: +XARE10TA PO
--- NOTE | 2019-07-30 23:25 | ECWPNPC ---
PATIENT NAME: WENDY MATHIAS V : 1940 GENDER: FEMALE VISIT DATE: 07/27/2019 DISCHARGE DATE: 07/27/19 1102 VISIT LOCKED DATE TIME: PHYSICIAN: PAO HATFIELD RESOURCE: PAO HATFIELD REASON FOR APPOINTMENT 1. POST TPI HISTORY OF PRESENT ILLNESS HISTORY OF PRESENT ILLNESS: PAIN THE PATIENT DESCRIBES THE PAIN... 78-YEAR-OLD FEMALE IN FOR POST SIJ FOLLOW-UP. SHE RATED HER PAIN PREPROCEDURE AT A 10 OUT OF 10 AND POSTPROCEDURE 0 OUT OF 10. SHE DOES ADMIT THAT HER PAIN HAS STARTED TO RETURN ADMITS TO PAIN BEING AT A 6 OUT OF 10 AND DESCRIBES IT ACHING, SHARP, AND BURNING. FALL RISK SCREENING: SCREENING :NO FALLS REPORTED IN THE LAST YEAR CURRENT MEDICATIONS TAKING LOSARTAN POTASSIUM 100 MG TABLET 1 TABLET ORALLY ONCE A DAY TAKING AMLODIPINE BESYLATE 10 MG TABLET 1 TABLET ORALLY ONCE A DAY TAKING HYDROCHLOROTHIAZIDE 25 MG TABLET 1 TABLET IN THE MORNING ORALLY ONCE A DAY TAKING ATENOLOL 50 MG TABLET 1 TABLET ORALLY ONCE A DAY AT BEDTIME TAKING ATORVASTATIN CALCIUM 20 MG TABLET 1 TABLET ORALLY ONCE A DAY AT BEDTIME TAKING CALCIUM 1 TAB ORAL DAILY TAKING MAGNESIUM 100 MG TABLET 4 TABLETS WITH A MEAL ORALLY ONCE A DAY TAKING LUTEIN 20 - CAPSULE ORALLY DAILY, NOTES: NOT LATELY TAKING VITAMIN E 400 UNIT CAPSULE 1 CAPSULE ORALLY ONCE A DAY TAKING OMEGA 3 1000 MG CAPSULE 1 CAPSULE ORALLY ONCE A DAY TAKING MELATONIN 3 MG TABLET 1 TABLET AT BEDTIME NEEDED WITH FOOD ORALLY ONCE A DAY TAKING MAY USE CBD OIL GUMMIES ORALLY PRN TAKING POTASSIUM CHLORIDE ER 10 MEQ TABLET EXTENDED RELEASE 1 TABLET WITH FOOD ORALLY TWICE A DAY TAKING GABAPENTIN 100 MG CAPSULE 1 CAPSULE ORALLY FOR PAIN BEFORE BEDTIME, NOTES: 06/26/19 2100 NOT-TAKING VISION VITAMINS - TABLET ORALLY DAILY NOT-TAKING ACETAMINOPHEN ER 650 MG TABLET EXTENDED RELEASE 2 TABLETS NEEDED ORALLY EVERY 8 HRS NOT-TAKING CELECOXIB 200 MG CAPSULE 1 CAPSULE WITH FOOD ORALLY ONCE A DAY, NOTES: NOT LATELY NOT-TAKING ACETAMINOPHEN PM 500-25 MG TABLET 1 TABLET AT BEDTIME NEEDED ORALLY ONCE A DAY, NOTES: NOT LATELY NOT-TAKING VITAMIN D-3 5000 UNIT TABLET 1 TABLET ORALLY ONCE A DAY MEDICATION LIST REVIEWED AND RECONCILED WITH THE PATIENT PAST MEDICAL HISTORY HYPERTENSION CHRONIC DRY EYE PSORIASIS ARTHRITIS HYPERLIPIDEMIA OBESITY CLIFFORD FRACTURE COCCYX AGE 11 ALLERGIES LACTOSE: NAUSEA/VOMITING - ALLERGY ASPIRIN: PRICKLY SENSATION IN ABDOMEN - SIDE EFFECTS BAND-AID: SKIN REACTION - SIDE EFFECTS SURGICAL HISTORY HYSTERECTOMY BLADDER REPAIR BOWEL SURGERY RIGHT HIP 2016 RIGHT SHOULDER REPLACEMENT 2017 LEFT SHOULDER REPLACEMENT 2017 FAMILY HISTORY FATHER: , DIAGNOSED WITH UNSPECIFIED HEART DISEASE, HYPERTENSION MOTHER: , OTHER MALIGNANT NEOPLASM OF UNSPECIFIED SITE SISTER - DUE TO DM. SOCIAL HISTORY GENERAL: TOBACCO USE ARE YOU A:NONSMOKER PAIN CLINIC PFS, CLERGY, PUBLIC HEALTH REFERRALS WAS THE PROVIDER NOTIFIED OF ANY PERTINENT INFO?YES HAS THE PATIENT BEEN EDUCATED REGARDING HIS/HER PLAN OF CARE?YES HAS THE PATIENT BEEN EDUCATED REGARDING PAIN, THE RISK FOR PAIN, THE IMPORTANCE OF EFFECTIVE PAIN MANAGEMENT, AND THE PAIN ASSESSMENT PROCESS?YES LATEX QUESTIONNAIRE LATEX ALLERGY : HAVE YOU EVER DEVELOPED ANY TYPE OF REACTION AFTER HANDLING LATEX PRODUCTS SUCH RUBBER GLOVES, CONDOMS, DIAPHRAGMS, BALLOONS, SOCKS, OR UNDERWEAR?YES LATEX ALLERGY : HAVE YOU EVER DEVELOPED ANY TYPE OF REACTION DURING OR AFTER DENTAL APPOINTMENT, VAGINAL/RECTAL EXAMINATION, SURGICAL PROCEDURE, OR ANY OTHER EXPOSURE?NO - PLEASE INDICATE :OTHER (DOCUMENT IN NOTES) BANDAIDS CAUSE SEVERE SKIN REACTION DATE ASKED : 06/19/2019 LATEX RISK : HAVE YOU EVER HAD ANY DIFFICULTY BREATHING OR HIVES AFTER EATING OR HANDLING ANY FRUITS, OR VEGETABLES; SUCH KIWI, BANANAS, STONE FRUITS, OR CHESTNUTSNO LATEX RISK : DO YOU HAVE A PREVIOUS PERSONAL HISTORY OF MORE THAN NINE SURGERIES, SPINA BIFIDA, OR REPEATED CATHERIZATIONS? NO LATEX RISK : ARE YOU FREQUENTLY EXPOSED TO LATEX PRODUCTS IN YOUR OCCUPATION?NO ADVANCE DIRECTIVE ADVANCE DIRECTIVE DISCUSSED WITH PATIENT:YES HCP ENA MATHIAS DIET: REGULAR, MINIMAL DAIRY. HOAHAOISM [id number] EPISCOPAL NO JEHOVAH'S WITNESS BELIEFS THAT WOULD IMPACT HEALTH CARE. LANGUAGE LANGUAGES SPOKEN:RUSSIAN NEW PATIENT PAIN DIARY PATIENT DESCRIBES PAIN :ACHING, HAVE IT ALL THE TIME, STABBING, SHOOTING FROM 0-10, WHAT LEVEL IS YOUR PAIN TODAY?8 PRECIPITATING FACTORS PAIN HAS INCREASED OVER LAST TWO YEARS, WALKING INCREASES PAIN. HOUSEWORK, STANDING IN PLACE, BENDING, LIFTING, SWEEPING AND MOPPING ALLEVIATING FACTORS SITTING WITH LEGS ELEVATED, USING CANE, WEARING BACK SUPPORT AND LYING DOWN IMPACT ON FUNCTION DECREASED ABILITY TO DO DAILY ACTIVITIES IS THERE A CHANCE YOU COULD BE ?NO HAVE YOU BEEN SICK IN THE LAST WEEK (COLD, COUGH, FEVER, FLU, ETC)NO DO YOU TAKE ANY BLOOD THINNERS?NO DO YOU HAVE ANY RASHES OR OPEN SORES?NO ANY CHANGE IN BOWEL OR BLADDER CONTROL?NO ARE YOU ALLERGIC TO SHELLFISH OR IV DYE?NO ARE YOU DIABETIC?NO DO YOU HAVE A PACEMAKER OR DEFIBRILLATOR?NO ANY NEW PROBLEMS WITH MEDICINES OR NEW ALLERGIESNO ANY NEW PATTERNS OF PAIN OR NUMBNESS?YES ANY CHANGE IN YOUR MEDICAL CONDITION?NO HAVE YOU FALLEN IN THE LAST 6 MONTHS?NO DO YOU USE ANY TYPE OF TOBACCO (SMOKE, SMOKELESS, CHEW, ETC.)NO ARE YOU ABUSED, NEGLECTED, OR IN AN UNSAFE ENVIRONMENT?NO DO YOU HAVE THOUGHTS OF HURTING YOURSELF OR SOMEONE ELSE?NO DO YOU NEED ANY PRESCRIPTIONS?NO DO YOU HAVE ANY OTHER QUESTIONS OR CONCERNS?NO RECREATIONAL DRUG USE DRUG USE?NO LEARNING BARRIERS / SPECIAL NEEDS BARRIERS TO LEARNING?NO HEARING IMPAIRED?NO VISION IMPAIRED?YES COGNITIVELY IMPAIRED?NO :CORRECTIVE LENSES READINESS TO LEARN?YES REVIEWED WITH PT 02/26/19 1224 BVREVIEWED WITH PT 06/15/19 1420 LASREVIEWED WITH PATIENT 06/27/2019 1100 LASREVIEWED WITH PATIENT 07/27/19 LAS. HOSPITALIZATION/MAJOR DIAGNOSTIC PROCEDURE SURGERIES REVIEW OF SYSTEMS REVIEWED BY: PROVIDER: MARY NICHOLSON-C . CONSTITUTIONAL: ANY CHANGE IN YOUR MEDICAL CONDITION? NO . CHILLS NO . FEVER NO . INFECTION: DO YOU HAVE NEW INFECTIONS? NO . DO YOU HAVE HISTORY OF MRSA? NO . MUSCULOSKELETAL: ANY NEW PATTERNS OF PAIN OR NUMBNESS? NO . GASTROENTEROLOGY: ANY NEW CHANGE IN BOWEL CONTROL? NO . GENITOURINARY: ANY NEW CHANGE IN BLADDER CONTROL? NO . IS THERE A CHANCE YOU COULD BE ? NO . HEMATOLOGY/LYMPH: DO YOU TAKE ANY BLOOD THINNERS? (FOR EXAMPLE- COUMADIN, PLAVIX, AGGRENOX, PLATEL, PRADAXA, OR XARELTO) NO . WHEN WAS YOUR LAST DOSE? DATE: TIME: . NEUROLOGY: HAVE YOU FALLEN IN THE PAST 12 MONTHS? NO . ANY NEW EXTREMITY NUMBNESS OR WEAKNESS? NO . CARDIOLOGY: DO YOU HAVE A PACEMAKER OR DEFIBRILLATOR? NO . RESPIRATORY: HAVE YOU BEEN SICK IN THE PAST WEEK? NO . FEVER NO . FLU LIKE SYMPTOMS? NO . COUGH NO . INTEGUMENTARY: DO YOU HAVE ANY RASHES OR OPEN SORES? NO . ALLERGIC/IMMUNO: ARE YOU ALLERGIC TO IV DYE? NO . ANY NEW ALLERGIES? NO . PSYCHIATRIC: DO YOU HAVE THOUGHTS OF HURTING YOURSELF OR SOMEONE ELSE? NO . ARE YOU ABUSED, NEGLECTED, OR IN AN UNSAFE ENVIRONMENT? NO . ENDOCRINOLOGY: ARE YOU DIABETIC? NO . OTHER: DO YOU NEED ANY PRESCRIPTIONS? NO . IF YES, PLEASE LIST: ____ . ANY NEW PROBLEMS WITH YOUR MEDICATIONS? NO . WHEN DID YOU LAST EAT? ____ . WHEN DID YOU LAST DRINK? ____ . WHAT DID YOU LAST DRINK? ____ . NAME OF PERSON DRIVING YOU HOME? ____ . DO YOU HAVE ANY OTHER QUESTIONS OR CONCERNS NO . VITAL SIGNS WT 171.0 LBS, HT 61 IN, BMI 32.31 INDEX, BP 125/64 MM HG, HR 57 /MIN, RR 16 /MIN, TEMP 97.9 F, OXYGEN SAT % 96%, SAFE IN ENV? (Y/N) YES, NA INITIALS AW 1013, REVIEWED BY: ELLIE. EXAMINATION GENERAL EXAMINATION: GENERALNO ACUTE DISTRESS, WELL NOURISHED AND HYDRATED. PSYCHAPPROPRIATE MOOD AND AFFECT . LUNGS:CLEAR TO AUSCULTATION BILATERALLY, NO WHEEZES, RHONCHI, RALES. HEART:NO MURMURS, REGULAR RATE AND RHYTHM. ASSESSMENTS SACROILIITIS, NOT ELSEWHERE CLASSIFIED - M46.1 (PRIMARY) TREATMENT SACROILIITIS, NOT ELSEWHERE CLASSIFIED CLINICAL NOTES: 78-YEAR-OLD FEMALE IN FOR POST SIJ FOLLOW-UP. SHE ADMITS TO AN UPCOMING TOTAL KNEE REPLACEMENT AND FURTHER STATES THAT HER WILL BE HAVING RF PROCEDURE. GIVEN PRESENTING SYMPTOMS AND RESULTS PHYSICAL EXAMINATION RECOMMENDED FOLLOW-UP IN 2 MONTHS. PATIENT HAS EXPRESSED UNDERSTANDING OF AND WAS IN AGREEMENT WITH TREATMENT PLAN. GIVEN TIME TO ASK QUESTIONS AND EXPRESS CONCERNS. PROCEDURE CODES FA211 ESTABILISHED PATIENT [facility] FACILITY CHARGE DISPOSITION & COMMUNICATION FOLLOW UP 2 MONTHS (REASON: CHRONIC PAIN ) ELECTRONICALLY SIGNED BY BHARAT CHENEY ON 07/30/2019 AT 08:57 AM EDT DISCLAIMER : THIS IS A VISIT SUMMARY EXTRACTED FROM THE [employer] CHART. IT IS NOT A COPY OF THE [employer] PROGRESS NOTE. DAVID
== END ==
LOC: M PAIN 10:30
PROVIDERS: ATTEND Family Medicine
DX: M46.1 Sacroiliitis, not elsewhere classified (principal); I10 Essential (primary) hypertension; M19.90 Unspecified osteoarthritis, unspecified site; E78.5 Hyperlipidemia, unspecified; G47.33 Obstructive sleep apnea (adult) (pediatric); Z96.641 Presence of right artificial hip joint; Z96.611 Presence of right artificial shoulder joint; Z96.612 Presence of left artificial shoulder joint; Z88.6 Allergy status to analgesic agent; Z91.011 Allergy to milk products; Z91.09 Other allergy status, other than to drugs and biological substances; Z79.899 Other long term (current) drug therapy

== ENCOUNTER 2019-07-31 08:05 | Inpatient (IN) | payer MEDICARE ==
--- NOTE | 2019-07-26 12:18 | HPE ---
DATE OF ADMISSION: 07/31/2019 ATTENDING PHYSICIAN: Dr. Mychal Rodriguez CHIEF COMPLAINT: Right knee pain and stiffness. HISTORY: The patient is a pleasant 78-year-old female with progressively worsening right knee pain and stiffness. She has failed to improve with conservative measures. She continues to have symptoms with weightbearing activities and activities of daily living. The patient has consented for an elective right total knee arthroplasty with Dr. Rodriguez for continued symptoms. Medical optimization pending with Sally Gómez. CURRENT MEDICATIONS: - Tylenol 650 mg every 8 hours as needed - Celebrex 200 mg daily - vitamin D3 5000 units daily - gabapentin 100 mg at bedtime - losartan 100 mg daily - amlodipine 10 mg daily - hydrochlorothiazide 25 mg daily - atenolol 25 mg every evening - Lipitor 20 mg as needed - calcium - magnesium - vitamin E - omega 3 vitamins - melatonin 3 mg at bedtime - potassium 10 mEq twice daily ALLERGIES: - LATEX - LACTOSE - ASPIRIN - BAND-AIDS CHRONIC MEDICAL CONDITIONS: 1. Hypertension. 2. Hyperlipidemia. 3. Chronic pain. PAST SURGICAL HISTORY: Bilateral shoulder and right hip arthroplasties. SOCIAL HISTORY: The patient does not use tobacco and rarely uses alcohol. REVIEW OF SYSTEMS: The patient denies fevers, chills, nausea, vomiting or diarrhea. She denies chest pain, shortness of breath, lightheadedness, dizziness or headaches. She denies any recent upper respiratory or urinary tract infection symptoms. She denies abdominal pain. She continues to have right knee pain with weightbearing activities and activities of daily living. PHYSICAL EXAMINATION: Well-nourished, well-developed female in no apparent distress. She is alert, oriented and cooperative. Mood and affect are appropriate. Vital Signs: Height 5 feet 1/2 inch, weight 165 pounds, temperature 98.3, blood pressure 124/83, heart rate 67, respirations 15. Neck: Supple without lymphadenopathy. Heart: Regular rate and rhythm. Lungs: Clear to auscultation bilaterally. Abdomen: Bowel sounds are present. Abdomen is soft and nontender to palpation. Musculoskeletal: Right knee exhibits no gross abnormalities. There is tenderness along the medial joint line. The patient can extend the knee to 2 degrees and flex to 110 degrees. Right lower extremity strength is 5/5. Calf is soft, nontender to palpation with no palpable cords noted. She is neurovascularly intact distally. ELECTROCARDIOGRAM (EKG): Sinus bradycardia with first-degree AV block, leftward axis, low QRS complex voltage in the limb leads, nonspecific ST-T wave abnormalities. CHEST X-RAY: No acute cardiopulmonary findings. Calcified granulomas in the right hilus. Evidence of bilateral total shoulder arthroplasties. RIGHT KNEE X-RAY: Revealed advanced tricompartmental osteoarthritis with [id number] contact in the lateral femoral tibial compartment with soft tissue calcifications versus loose bodies posterior to the intercondylar notch. 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 LABORATORY DATA: Prothrombin time 12.3, INR 0.94. Complete blood count: ESR 11, WBC 5.3, RBC 4.34, hemoglobin 13.3, hematocrit 40.4, platelets 253. Comprehensive metabolic profile: fasting glucose 74, BUN elevated at 22, creatinine 0.91, GFR greater than 60, sodium 141, potassium 4.1, chloride 107, carbon dioxide 31, anion gap decreased at 5, calcium 9.6, AST 14, ALT 34, alkaline phosphatase 86, total bilirubin 0.5, total protein 6.7, albumin 3.6, albumin-globulin ratio 1.16. IMPRESSION: Right knee degenerative arthritis with x-rays notable for end-stage degenerative changes. PLAN: The patient has consented for an elective right total knee arthroplasty with Dr. Rodriguez for her continued symptoms. Medical optimization is pending with Sally Gómez.
[~2019-07-31] VITALS: Ht 154.9 cm; Wt 77.1 kg
[~2019-07-31 08:05] MED LIST changes: +ACETAMINOPHEN 500 MG TAB PO ONE; -K-TA10TA PO; +LIDOCAINE 1% MDV 20ML VIAL SQ PRN; +LR 1,000 ML IV ONE; -MELA3TAB49 PO; +MIDAZOLAM INJ 2 MG/2 ML VIAL (J2250) IV SCH; -XARE10TA PO; +ceFAZolin SOD 2 GM in IV 1 EA IV ONE; +fentaNYL 100 MCG/2 ML INJECTION (J3010) IV SCH
[2019-07-31] MEDS ORDERED: K-TA10TA PO (08:46)
[2019-07-31] MEDS ORDERED: MELA3TAB49 PO (08:46)
[2019-07-31] MEDS ORDERED: TRANEXAMIC ACID 100 MG/ML 10ML VIAL As Ordered ONE (10:39)
[2019-07-31] MEDS ORDERED: BUPIVACAINE HCL 0.25% 10 ML VIAL As Ordered ONE ×3 (10:39→11:08)
[2019-07-31] MEDS ORDERED: BUPIVACAINE LIPOSOME/PF 1.3% 20ML VIAL (13.3MG/ML)(EXPAREL)(C9290 PER1MG) As Ordered ONE (10:40)
[2019-07-31] MEDS ORDERED: EPINEPHrine INJ 1 MG/ML 1ML AMP As Ordered ONE (10:40)
[2019-07-31] MEDS ORDERED: ceFAZolin 1GM INJ (J0690 PER 500MG) As Ordered ONE (10:40)
[2019-07-31] MEDS ORDERED: PROPOFOL 200 MG/20 ML VIAL As Ordered ONE ×2 (10:41→12:37)
[2019-07-31] MEDS ORDERED: LIDOCAINE 2% INJ 100 MG/5 ML SDV (FOR ANES.) As Ordered ONE (10:41)
[2019-07-31] MEDS ORDERED: dexameTHASONE 4 MG/ML 1ML VIAL (J1100) As Ordered ONE (10:41)
[2019-07-31] MEDS ORDERED: ONDANSETRON 4MG/2ML VIAL (J2405) As Ordered ONE (10:41)
[2019-07-31] MEDS ORDERED: MIDAZOLAM INJ 2 MG/2 ML VIAL (J2250) As Ordered ONE ×2 (10:42→10:45)
[2019-07-31] MEDS ORDERED: fentaNYL 100 MCG/2 ML INJECTION (J3010) As Ordered ONE (10:45)
[2019-07-31] MEDS ORDERED: BUPIVACAINE HCL 0.25% 30 ML VIAL As Ordered ONE (10:57)
[2019-07-31] MEDS ORDERED: BUPIVACAINE HCL 0.25% 30 ML VIAL ONE (13:47)
[2019-07-31] MEDS ORDERED: dexameTHASONE 10 MG/1 ML VIAL PRES.FREE (J1100) ONE (13:47)
[2019-07-31] MEDS ORDERED: LIDOCAINE 1% MDV 20ML VIAL ONE (13:47)
[2019-07-31] MEDS ORDERED: LR 1,000 ML IV SCH (14:15)
[2019-07-31] MEDS ORDERED: METOCLOPRAMIDE INJ 10MG/2ML VIAL (J2765) IV PRN (14:15)
[2019-07-31] MEDS ORDERED: fentaNYL 100 MCG/2 ML INJECTION (J3010) IV PRN (14:15)
[2019-07-31] MEDS ORDERED: oxyCODONE 5MG TAB PO PRN (14:15)
[2019-07-31] MEDS ORDERED: ONDANSETRON 4MG/2ML VIAL (J2405) IV PRN (14:15)
[2019-07-31] MEDS ORDERED: HYDROMORPHONE HCL 0.5 MG/ 0.5 ML SYRINGE (J1170 PER 1) IV PRN ×3 (14:15→15:16)
--- NOTE | 2019-07-31 14:56 | HPEPDOC ---
General Date of Admission Jul 31, 2019 at 08:05 Date of Service: Jul 31, 2019 Primary Care Physician: Mychal Rodriguez Attending Physician: ONUR MARTINEZ MD Chief Complaint The patient is a 78-year-old female admitted with a reason for visit of Right Knee Arthritis. Source: Patient, RN/MD Timing/Duration: Changing over time Severity: Moderate Associated Symptoms: Weakness, Mechanical fall History of Present Illness Consultation referred by Dr.Dr. Ochoa-orthopedic surgery 78-year-old female seen today by hospitalist services for medical consultation following her right knee total knee replacement were recovering in PACU. She is currently complaining of pain 6 out of 10 to her right knee, sharp, with intermittent throbbing. She she reports having severe osteoarthritis to her right knee, with multiple falls recently, resulted in her needing to have total knee replacement as she had bone on bone shown in her imaging studies. She also had previous surgeries due to severe osteoarthritis/degenerative joint disease, bilateral shoulders, and a right total hip replacement. She denies experiencing chest pain, shortness of breath at this time, fever, body aches, nausea, and dizziness. She denies having heart attack, stroke, pacemaker, and our TIA. She has significant medical history of essential hypertension, hyperlipidemia, cirrhosis, obstructive sleep apnea who is currently not using her CPAP due to it causing her facial pain, osteoarthritis, and insomnia. She'll be admitted inpatient services with orthopedic surgeon following an medicine hospitalist services covering medical needs. Home Medications Scheduled Amlodipine Besylate (Amlodipine Besylate) 10 Mg Tab, 10 MG PO DAILY, (Reported) Atenolol (Atenolol) 50 Mg Tab, 25 MG PO QHS, (Reported) Atorvastatin Calcium (Atorvastatin Calcium) 20 Mg Tab, 20 MG PO DAILY, (Reported) Calcium Carbonate (Calcium) 600 Mg Tab, 600 MG PO DAILY, (Reported) Celecoxib (Celebrex) 200 Mg Cap, 200 MG PO DAILY, (Reported) Cholecalciferol (Vitamin D3) (Vitamin D3) 5,000 Unit Tab.rapdis, 5,000 UNIT PO DAILY, (Reported) Gabapentin (Gabapentin) 100 Mg Capsule, 100 MG PO QPM, (Reported) Hydrochlorothiazide (Hydrochlorothiazide) 25 Mg Tab, 25 MG PO DAILY, (Reported) Losartan Potassium (Losartan Potassium) 100 Mg Tab, 100 MG PO DAILY, (Reported) Magnesium Oxide (Magnesium) 400 Mg Cap, 400 MG PO DAILY, (Reported) Melatonin (Melatonin) 3 Mg Tab.rapdis, 3 MG PO QHS, (Reported) Multivitamin with Minerals (Hair, Skin and Nails) 1 Each Tablet, 3 TAB PO DAILY, (Reported) [place]-3 Fatty Acids/Fish Oil ([place] 3 1,000 mg Softgel) 1 Cap Cap, 4 CAP PO DAILY, (Reported) Potassium Chloride (K-Tab ER) 10 Meq Tablet.er, 20 MEQ PO DAILY, (Reported) Vitamin E (Dl,Tocopheryl Acet) (Vitamin E) 400 Unit Capsule, 400 UNIT PO DAILY, (Reported) [maquirite] , 1 TAB PO DAILY, (Reported) Scheduled PRN Acetaminophen (Acetaminophen) 325 Mg Tablet, 650 MG PO PRN PRN for PAIN, (Reported) Oxycodone HCl/Acetaminophen (Percocet 5-325 mg Tablet) 1 Tab Tab, 1-2 TAB PO Q4H PRN for PAIN MDD = 8 Allergies Coded Allergies: TAPE (Verified Allergy, Intermediate, red/sore, 07/31/19) latex (Verified Allergy, Intermediate, red burning rash, 07/31/19) aspirin (Verified Adverse Reaction, Intermediate, upset stomach, 07/31/19) milk (Verified Adverse Reaction, Intermediate, mucous, headache, 07/31/19) Past Medical History Medical History See HPI Surgical History Right Total Knee Replacement, Bilateral Shoulder Repair, Bowel Resection, Total Hysterectomy, Right Total Hip Replacement Family History Significant Family History: No pertinent family hx Social History * Smoker: Denies Alcohol: occationally (Beer 1-2 a week) Drugs: denies Recent Travel/Sick Contacts: Denies: Recent travel, Recent sick contacts Psychosocial History: No pertinent psych hx, Jack SI and HI A-FIB/CHADSVASC A-FIB History Current/History of A-Fib/PAF?: No Review of Systems Constitutional: Reports: Fatigue Eyes: Reports: Pain ENT: Denies: Head Aches, Ear Pain, Dysphagia, Sinus Congestion, Post Nasal Drip, Sore Throat, Epistaxis, Other Symptoms Skin: Denies: Rash, Lesions, Jaundice, Bruising, Itching, Dry, Breakdown, Nail Changes, Other Pulmonary: Denies: Dyspnea, Cough, Pleuritic Chest Pain, Other Symptoms Cardiovascular: Denies: Chest Pain, Palpitations, Orthopnea, Paroxysmal Noc. Dyspnea, Edema, Lt Headedness, Other Symptoms Gastrointestinal: Denies: Nausea, Vomiting, Abdominal Pain, Diarrhea, Constip ation, Melena, Hematochezia, Other Symptoms Genitourinary: Denies: Dysuria, Frequency, Incontinence, Hematuria, Retention, Other Symptoms Hematologic: Reports: Bruising Endocrine: Denies: Polydipsia, Polyphagia, Polyuria, Heat Intolerance, Cold Intolerance, Other Endocrine Sx Musculoskeletal: Reports: Leg Pain, Joint Pain Neurological: Reports: Weakness Psych: Reports: Memory Issues; Denies: Mood Normal, Anxiety, Depression, Thoughts of Self Harm, Anger, Thoughts of Harming Other, Other Psych Physical Examination General Exam: Positive: Alert, Cooperative, Moderate Distress Eye Exam: Positive: PERRLA, Conjunctiva & lids normal ENT Exam: Positive: Atraumatic, Pharynx Normal, Tongue Midline, Nares Patent Neck Exam: Positive: Supple, +2 carotid pulse wo bruit Chest Exam: Positive: Clear to auscultation, Normal air movement Heart Exam: Positive: Rate Normal, Normal S1, Normal S2 Abdomen Exam: Positive: BS Hypoactive, Soft Extremity Exam: Positive: Edema, Tenderness, Swelling, Other (surgical dressing clean, dry and intact. Right lower knee) Skin Exam: Positive: Nl turgor and temperature Neuro Exam: Positive: Normal Speech, Cranial Nerves 3-12 NL Psych Exam: Positive: Mental status NL, Oriented x 3 Vital Signs Vital Signs Date Time Temp Pulse Resp B/P (MAP) Pulse Ox O2 Delivery O2 Flow Rate FiO2 07/31/19 14:37 55 14 118/62 (80) 94 2 07/31/19 14:22 97.3 Problems (1) Right knee pain Status: Acute Response to Treatment: Worse Discussed With: Patient Problem Specific Plan: Monitor Clinically Problem Text: 78-year-old female seen today by hospitalist services for medical consultation following her right knee total knee replacement were recovering in PACU. She is currently complaining of pain 6 out of 10 to her right knee, sharp, with intermittent throbbing. Hypertensionchronic Plan Monitor blood pressure Check labs: CBC, CMP now; check morning labs, BMP, CMP Continue home medications: Atenolol 25 mg by mouth; hydrochlorothiazide; potassium chloride (monitor potassium-Will hold his potassium is too high) Daily weight Diet cardiac low sodium, low-fat Right Knee Pain Secondary to Right total knee replacement -acute Manage by orthopedic surgery Pain management. Continue pain medication prescribed by Orthopedics-Lynda Start bowel regimen PT/OT evaluate/treat Obstructive sleep apneachronic Pulse oximetry, continuous Supplemental oxygen via nasal cannula 2 L. May increase up to 3 as needed with goal oxygen saturation 88-92% Duo neb every 6 hours as needed for shortness of breath, wheezing, cough Hyperlipidemiachronic Check in the morning Lipid panel fasting Continue home medication.Lipitor 20 mg at bedtime Neuropathychronic Continue gabapentin 100 mg by mouth at bedtime Prognosis: Good. DVT prophylaxis: Xarelto & SCDs bilateral lower extremities and ESTEFANI hose on left lower leg Discharge: Pending orthopedic clearance, and medical Plan / VTE VTE Prophylaxis Ordered?: Yes (SCDS bilateral LE and TEDS on LLE not RLE) VTE Exclusion Mechanical Proph: Jose Lower Ex Surgery VTE Exclusion Pharmacological: N/A:VTE Prophy Ordered (Xarelto) Plan IVF: Continue Diet: Advance Activity: Encourage Ambulation Therapy: PT, OT Medications: Change to IV, Bowel Regimen, Increase Pain Meds Respiratory: Pulse Ox on Room Air Diagnostics: Check Labs, Repeat Labs in AM Anticipated Discharge: Home With Services Advanced Directives: Health Care Proxy (HCP) (- Hardik Easton ns-#[phone]) SALLY LANIER Jul 31, 2019 14:55
[2019-07-31] MEDS ORDERED: FLEET ENEMA PR PRN (15:16)
[2019-07-31] MEDS: LR 1,000 ML IV SCH (15:16)
[2019-07-31] MEDS ORDERED: ACETAMINOPHEN TAB 650MG DOSE (2X325MG) PO PRN (15:16)
--- NOTE | 2019-07-31 15:43 | REP ---
Right knee two views postoperative study: There is a total knee arthroplasty. The components are tightly applied and in satisfactory positions alignment. There is intra-articular air as a postsurgical change. There are skin cindy. Electronically Signed by Cameron Barr MD 07/31/2019 03:34 P
[2019-07-31 16:45] VITALS: BP 137/78
[2019-07-31 17:15] VITALS: BP 135/78
[2019-07-31] MEDS ORDERED: CALCIUM CARBONATE 500 MG CHEW U/D PO PRN (17:15)
[2019-07-31 18:15] VITALS: BP 130/75
[2019-07-31] MEDS ORDERED: MOM 30ML SUSPENSION UDC PO PRN (18:30)
[2019-07-31] MEDS ORDERED: PERCOCET 5MG/325MG TAB PO PRN ×2 (18:30)
[2019-07-31] MEDS ORDERED: MAALOX 30 ML SUSP *UDC PO PRN (18:30)
[2019-07-31] MEDS: ceFAZolin SOD 2 GM in IV 1 EA IV SCH (18:32)
[2019-07-31 18:43] LABS: BASO % 0.1 % (0.0-1.0); HEMATOCRIT 39.2 % (36.0-47.0); HEMOGLOBIN 13.3 g/dl (12.0-15.5); LYMPH # 0.5 10^3/uL (1.5-5.0); MEAN CORPUSCULAR HEMOGLOBIN 32.2 pg (27.0-33.0); MEAN CORPUSCULAR HGB CONC 33.9 g/dl (32.0-36.5); MEAN CORPUSCULAR VOLUME 94.9 fl (80.0-96.0); MONO # 0.1 10^3/uL (0.0-0.8); MONO % 1.5 % (0.0-5.0); NEUTROPHILS % 91.9 % (36.0-66.0); PLATELET COUNT, AUTOMATED 268 10^3/uL (150-450); RED BLOOD COUNT 4.13 10^6/uL (4.00-5.40); WHITE BLOOD COUNT 8.7 10^3/uL (4.0-10.0)
[2019-07-31 18:53] LABS: ALBUMIN 3.3 GM/DL (3.2-5.2); ALT/SGPT 24 U/L (12-78); BILIRUBIN,TOTAL 0.4 MG/DL (0.2-1.0); BLOOD UREA NITROGEN 14 MG/DL (7-18); CALCIUM LEVEL 9.1 MG/DL (8.8-10.2); CARBON DIOXIDE LEVEL 29 MEQ/L (21-32); CHLORIDE LEVEL 108 MEQ/L (98-107); CREATININE FOR GFR 0.76 MG/DL (0.55-1.30); GLOMERULAR FILTRATION RATE > 60.0 (>32); GLUCOSE, FASTING 125 MG/DL (70-100); POTASSIUM SERUM 3.9 MEQ/L (3.5-5.1); SODIUM LEVEL 142 MEQ/L (136-145); TOTAL PROTEIN 6.8 GM/DL (6.4-8.2)
[2019-07-31] MEDS ORDERED: IPRATROPIUM 0.5MG/ALBUTEROL 2.5MG INH SOL UD 3ML (DUONEB)(J7620) NEB PRN (19:15)
[2019-07-31 19:36] VITALS: BP 119/69
[2019-07-31] MEDS: SENOKOT S TAB PO SCH (20:21)
[2019-07-31 20:26] VITALS: BP 121/69
[2019-07-31] MEDS ORDERED: ATORVASTATIN 20 MG TAB PO SCH (21:00)
[2019-07-31] MEDS ORDERED: ATENOLOL 25 MG TAB PO SCH (21:00)
[2019-07-31 21:24] VITALS: BP 121/65
[2019-07-31 22:59] LABS: APPEARANCE, URINE CLEAR (CLEAR); BACTERIA, URINE AUTO NEGATIVE (NEGATIVE); BILIRUBIN, URINE AUTO NEGATIVE (NEGATIVE); BLOOD, URINE BLOOD NEGATIVE (NEGATIVE); COLOR, URINE YELLOW (YELLOW); GLUCOSE, URINE (UA) AUTO 3+ mg/dL (NEGATIVE); KETONE, URINE AUTO NEGATIVE (NEGATIVE); LEUKOCYTE ESTERASE, URINE AUTO NEGATIVE (NEGATIVE); NITRITE, URINE AUTO NEGATIVE (NEGATIVE); PROTEIN, URINE AUTO NEGATIVE (NEGATIVE); RBC, URINE AUTO 0 /HPF (0-3); SPECIFIC GRAVITY URINE AUTO 1.017 (1.002-1.035); SQUAMOUS EPITHELIAL CELL UR AU 0 /HPF (0-6); UROBILINOGEN, URINE AUTO 0.2 mg/dL (0.0-2.0); WBC, URINE AUTO 1 /HPF (0-3)
[2019-08-01] MEDS: ceFAZolin SOD 2 GM in IV 1 EA IV SCH ×2 (00:34→06:06)
[2019-08-01 02:00] VITALS: BP 124/62
[2019-08-01] MEDS: LR 1,000 ML IV SCH (03:45)
[2019-08-01 05:35] LABS: HEMATOCRIT 35.8 % (36.0-47.0); HEMOGLOBIN 12.1 g/dl (12.0-15.5); MEAN CORPUSCULAR HEMOGLOBIN 31.7 pg (27.0-33.0); MEAN CORPUSCULAR HGB CONC 33.8 g/dl (32.0-36.5); MEAN CORPUSCULAR VOLUME 93.7 fl (80.0-96.0); PLATELET COUNT, AUTOMATED 235 10^3/uL (150-450); RED BLOOD COUNT 3.82 10^6/uL (4.00-5.40); WHITE BLOOD COUNT 9.2 10^3/uL (4.0-10.0)
[2019-08-01 05:37] VITALS: BP 107/64
[2019-08-01 05:57] LABS: BLOOD UREA NITROGEN 16 MG/DL (7-18); CALCIUM LEVEL 8.7 MG/DL (8.8-10.2); CARBON DIOXIDE LEVEL 30 MEQ/L (21-32); CHLORIDE LEVEL 105 MEQ/L (98-107); COLLAGEN EPINEPHRINE 110 SECONDS (74-162); CREATININE FOR GFR 0.74 MG/DL (0.55-1.30); GLOMERULAR FILTRATION RATE > 60.0 (>32); GLUCOSE, FASTING 112 MG/DL (70-100); INR 1.05; POTASSIUM SERUM 3.7 MEQ/L (3.5-5.1); PROTHROMBIN TIME 13.4 SECONDS (11.8-14.0); SODIUM LEVEL 140 MEQ/L (136-145)
[2019-08-01 05:58] LABS: PARTIAL THROMBOPLASTIN TIME 27.1 SECONDS (25.0-38.4)
[2019-08-01] MEDS ORDERED: PERCOCET 5MG/325MG TAB PO PRN ×2 (06:00)
[2019-08-01] MEDS ORDERED: XARE10TA PO (06:41)
[2019-08-01] MEDS ORDERED: PERC5TAB12 PO (06:41)
--- NOTE | 2019-08-01 07:31 | RO ---
DATE OF PROCEDURE: 07/31/2019 PREPROCEDURE DIAGNOSIS: Valgus degenerative arthritis of the right knee. POSTPROCEDURE DIAGNOSIS: Valgus degenerative arthritis of the right knee. PROCEDURE: Right total knee arthroplasty using a size 5 cruciate retaining femoral component, size 5 tibial tray with a 6 mm rotating polyethylene insert and a 32 mm polyethylene button. All the components were cemented. Prosthesis made by [employer]. It was an Attune knee. SURGEON: Dr. Mychal Rodriguez VEGETABLE SCULLION: Mr. Rohit Guajardo PA-C ANESTHESIA: Spinal with right femoral nerve block. COMPLICATIONS: None. SPECIMENS: Joint surface. ESTIMATED BLOOD LOSS: 20 mL. DESCRIPTION OF PROCEDURE: Antibiotics were given intravenously preoperatively, then a successful right femoral nerve block anesthetic and then a spinal anesthetic was induced. Tourniquet placed right upper thigh and not inflated. The right lower extremity was carefully prepped and draped in the usual sterile fashion, elevated, and after an appropriate time-out tourniquet was inflated. A longitudinal incision was made for a medial parapatellar approach to the knee. Bovie cautery was used to coagulate the crossing vessels. Subperiosteal dissection around the proximal medial and lateral tibia plateau was performed. The patella was everted and the knee flexed. Anterior cruciate ligament (ACL) debrided. Drill placed down the center of the femoral canal. Intramedullary gonzalo placed the distal femoral cutting jigs set at 9 mm resection level at 5 degrees of valgus for a right knee. The block was pinned into position. Distal femoral cut performed. AP sizing jig measured for a size #5. 3 degrees of external rotation dialed in, the pins place, 4-in-1 block applied. Secondary check of the transepicondylar axis and weight size lined showed that it appeared to be proper rotation. Anterior, posterior and chamfer cuts were performed. The sulcus cut jig was placed. The sulcus cut performed. We then exposed the proximal tibia and used the extramedullary alignment jig to estimate being parallel to the mechanical axis of the tibia referencing off the lateral tibial condyle at 4 mm resection level. The block was pinned into position. A secondary check with the extramedullary gonzalo confirmed we appeared to be parallel to the mechanical axis. We did check also at the medial side and it was taking 6 mm from there. Proximal tibial osteotomy was then performed. The lamina roadway technician was placed medially and we performed a completion lateral meniscectomy. Debridement of the posterior lateral osteophytes. Then, we placed the lamina roadway technician laterally and performed a completion medial meniscectomy and debridement of the posterior medial osteophytes. The spacer block 6 mm fit nicely. However, it was a little snug in flexion, so we did release some of the posterior cruciate ligament (PCL). We then exposed the proximal tibia and sized for a #5 tibial tray which was pinned into position followed by the reamer and broach. Trial polyethylene was placed. Trial femoral component was placed. We brought the knee into extension. Everted the patella. Performed a patellar osteotomy. Sized for a 32 button. Lug holes were drilled. Trial was placed and the patellofemoral tracking was anatomic. We then drilled the lug holes for the femur. All the trials were removed. Then we began copious pulsatile lavage irrigating out the knee joint as Mr. Rohit Guajardo mixed the cement on the back table as I prepared the bony surfaces for cementing. He was also critical to the success of this difficult surgery by helping with appropriate soft tissue retraction, helped to manipulate the leg as needed, helped to mix cement and helped to close the wound. Help to prepare the patient amongst many other tasks to allow me to perform the operation smoothly, efficiently and safely. Once all the bony surfaces were well dried, and also after placing Exparel in the subperiosteal tissues around the distal femur and the proximal tibia, we cemented the tibial tray. Removed excess cement. Placed the polyethylene. Cemented the femoral component. Removed excess cement. Brought the knee into extension. Cemented the patella button and removed excess cement. Held it with a clamp with the knee in extension until the cement hardened. As we were awaiting this, we copiously pulsatile lavage irrigated out the knee joint and then placed tranexamic acid into the knee joint. The apex of the wound was closed with interrupted #1-0 PDS sutures and then medial parapatellar area was closed with #1-0 PDS suture. Then we used a running double arm #1 running Stratafix to close the capsule. Then the tourniquet was released. We irrigated between layers. Closed the deep subdermal tissues with interrupted #2-0 PDS suture. The skin was closed with cindy covered by an Optifoam and dry sterile bulky dressing. She was then transferred to the recovery room in stable condition. There were no intraoperative complications.
[2019-08-01] MEDS: SENOKOT S TAB PO SCH (08:22)
[2019-08-01 08:23] VITALS: BP 139/67
[2019-08-01] MEDS ORDERED: MAGNESIUM OXIDE 400 MG TAB (MAG-OX) PO SCH (09:00)
[2019-08-01] MEDS ORDERED: MIRALAX *UNIT DOSE* 17GM PACKET PO SCH (09:00)
[2019-08-01] MEDS ORDERED: OMEGA-3 1000MG CAPSULE PO SCH (09:00)
[2019-08-01] MEDS ORDERED: LOSARTAN 50 MG TAB PO SCH (09:00)
[2019-08-01] MEDS ORDERED: hydroCHLOROthiazide 25 MG TAB PO SCH (09:00)
[2019-08-01] MEDS ORDERED: amLODIPine 10 MG TAB PO SCH (09:00)
[2019-08-01] MEDS ORDERED: VITAMIN E 400 INTERNATIONAL UNITS CAP PO SCH (09:00)
[2019-08-01 10:00] VITALS: BP 115/64
--- NOTE | 2019-08-01 17:00 | IPNPDOC ---
Date Seen The patient was seen on 08/01/19. Progress Note SUBJECTIVE: Patient seen and examined this morning. She currently has no new complaints. She states that her pain is tolerable. OBJECTIVE PHYSICAL EXAMINATION: VITAL SIGNS: Please see below. GENERAL: Patient is awake, alert and oriented. does not appear to be in acute distress HEENT: Atraumatic, normocephalic. Eyes are nonicteric. Trachea is midline. Mucous membranes are pink and moist. No conjunctival pallor CARDIOVASCULAR:. Normal S1, S2, regular rate and rhythm. No clicks, rubs or murm urs. Capillary refills less than 2 seconds. RESPIRATORY:. Clear vesicular breath sounds bilaterally with good respiratory effort. There is no wheezes, rhonchi or rales. ABDOMINAL: Soft, nondistended, nontender to palpation in all 4 quadrants. No rebound tenderness or guarding. No hernias or bruising EXTREMITIES: Patient has edema bilaterally. There is a surgical dressing over the right knee. NEUROLOGICAL:. No focal neurological deficits PSYCHOLOGICAL: Mood and affect appear appropriate LABORATORY DATA, IMAGING STUDIES, MICROBIOLOGY: Please see below. DVT prophylaxis ordered?: Xarelto 10 mg ASSESSMENT AND PLAN: Patient is an 78-year-old female who presented for total knee replacement of the right. Hospitalist service was consulted for medical management of the patient after her surgery. PROBLEMS: 1., Status post total right knee replacement -Pain management, anticoagulation is managed by orthopedic surgery. Patient's been on a bowel regimen. She has been seen by PT, OT. Patient has been cleared today and is currently pending discharge 2. Obstructive sleep apnea -Patient remained on continuous pulse oximetry overnight. -Patient remained on nasal cannula 2 L overnight. 3., Hyperlipidemia -Patient is continued on Lipitor 20 mg daily at bedtime 4. Neuropathy -Patient continue on her home medication gabapentin 100 mg daily at bedtime DISPOSITION: Patient has been cleared by physical therapy and will be discharged today. From medical standpoint, the patient has no acute medical condition. VS, I&O, 24H, Fishbone Vital Signs/I&O Vital Signs Date Time Temp Pulse Resp B/P (MAP) Pulse Ox O2 Delivery O2 Flow Rate FiO2 08/01/19 14:12 17 08/01/19 10:00 97.8 65 115/64 (81) 100 08/01/19 05:37 2.0 I&O- Last 24 Hours up to 6 AM 10/9/19 06:00 Intake Total 2640 ml Output Total 2095 ml Balance 545 ml Laboratory Data 24H LABS Laboratory Tests 2 07/31/19 18:15: Immature Granulocyte % (Auto) 0.5, White Blood Count 8.7, Red Blood Count 4.13, Hemoglobin 13.3, Hematocrit 39.2, Mean Corpuscular Volume 94.9, Mean Corpuscular Hemoglobin 32.2, Mean Corpuscular Hemoglobin Concent 33.9, Red Cell Distribution Width 13.5, Platelet Count 268, Neutrophils (%) (Auto) 91.9H, Lymphocytes (%) (Auto) 6.0L, Monocytes (%) (Auto) 1.5, Eosinophils (%) (Auto) 0.0, Basophils (%) (Auto) 0.1, Neutrophils # (Auto) 8.0, Lymphocytes # (Auto) 0.5L, Monocytes # (Auto) 0.1, Eosinophils # (Auto) 0.0, Basophils # (Auto) 0.0, Nucleated Red Blood Cells % (auto) 0.0, Anion Gap 5L, Glomerular Filtration Rate > 60.0, Blood Urea Nitrogen 14, Creatinine 0.76, Sodium Level 142, Potassium Level 3.9, Chloride Level 108H, Carbon Dioxide Level 29, Calcium Level 9.1, Aspartate Amino Transf (AST/SGOT) 20, Alanine Aminotransferase (ALT/SGPT) 24, Alkaline Phosphatase 74, Total Bilirubin 0.4, Total Protein 6.8, Albumin 3.3, Albumin/Globulin Ratio 0.94L 07/31/19 22:43: Urine Appearance CLEAR, Urine Color YELLOW, Urine pH 7.0, Urine Specific Morning Sun 1.017, Urine Protein NEGATIVE, Urine Glucose (UA) 3+H, Urine Ketones NEGATIVE, Urine Urobilinogen 0.2, Urine Bilirubin NEGATIVE, Urine Leukocyte Esterase NEGATIVE, Urine Blood NEGATIVE, Urine Nitrite NEGATIVE, Urine WBC (Auto) 1, Urine RBC (Auto) 0, Urine Hyaline Casts (Auto) 0, Urine Bacteria (Auto) NEGATIVE, Urine Squamous Epithelial Cells 0, Urine Sperm (Auto) 08/01/19 05:24: Nucleated Red Blood Cells % (auto) 0.0, Anion Gap 5L, Glomerular Filtration Rate > 60.0, Blood Urea Nitrogen 16, Creatinine 0.74, Sodium Level 140, Potassium Level 3.7, Chloride Level 105, Carbon Dioxide Level 30, Calcium Level 8.7L, Prothrombin Time 13.4, Prothromb Time International Ratio 1.05, Activated Partial Thromboplast Time 27.1, Platelet Func Collagen/Epinephrine 110 CBC/BMP Laboratory Tests 07/31/19 18:15 Red Blood Count 4.13, Mean Corpuscular Volume 94.9, Mean Corpuscular Hemoglobin 32.2, Mean Corpuscular Hemoglobin Concent 33.9, Red Cell Distribution Width 13.5, Neutrophils (%) (Auto) 91.9 H, Lymphocytes (%) (Auto) 6.0 L, Monocytes (%) (Auto) 1.5, Eosinophils (%) (Auto) 0.0, Basophils (%) (Auto) 0.1, Neutrophils # (Auto) 8.0, Lymphocytes # (Auto) 0.5 L, Monocytes # (Auto) 0.1, Eosinophils # (Auto) 0.0, Basophils # (Auto) 0.0, Calcium Level 9.1, Aspartate Amino Transf (AST/SGOT) 20, Alanine Aminotransferase (ALT/SGPT) 24, Alkaline Phosphatase 74, Total Bilirubin 0.4, Total Protein 6.8, Albumin 3.3 08/01/19 05:24 Red Blood Count 3.82 L, Mean Corpuscular Volume 93.7, Mean Corpuscular Hemoglobin 31.7, Mean Corpuscular Hemoglobin Concent 33.8, Red Cell Distribution Width 13.4, Calcium Level 8.7 L GME ATTESTATION GME ATTESTATION My faculty preceptor for this patient encounter was physically present during the encounter and was fully available. All aspects of the patient interview, examination, medical decision making process, and medical care plan development were reviewed and approved by the faculty preceptor. The faculty preceptor is aware and concurs with the plan as stated in the body of this note and will attest to such by his/her cosignature. ATTENDING NOTE I, Shashi Martinez, have independently examined this patient and performed my own physical exam, as well as reviewed the documentation and edited where necessary. I have discussed in detail with the resident / student the findings and plan of treatment as documented by the resident / student and edited their note. I agree with their findings and treatment plan and have edited their documentation. I will continue to follow the patient during this hospital stay. ADONIS HAQ DO Aug 01, 2019 17:00 SHASHI MARTINEZ MD Aug 01, 2019 21:07
[2019-08-01] MEDS ORDERED: RIVAROXABAN 10 MG TAB (XARELTO) PO SCH (18:00)
--- NOTE | 2019-08-03 17:39 | DSES ---
DATE OF ADMISSION: 07/31/2019 DATE OF DISCHARGE: 08/01/2019 ADMISSION DIAGNOSIS: Osteoarthritis, right knee. OTHER DIAGNOSES: 1. Hypertension. 2. Elevated lipids. 3. Cirrhosis. 4. Sleep apnea. 5. Insomnia. 6. Neuropathy. DISCHARGE DIAGNOSIS: Osteoarthritis right knee, status post right total knee arthroplasty. OPERATION PERFORMED: Right total knee arthroplasty. HISTORY: This is a n 78-year-old female patient with progressive worsening right knee pain and stiffness. She failed to improve with conservative management. She was admitted for an elective knee replacement on the right side. HOSPITAL COURSE: The patient was admitted on day of surgery and underwent a right total knee arthroplasty, which was uneventful. She did well in the postoperative period. Her hospital course was without complications. On the day of discharge she was doing well, weightbearing as tolerated on the right lower extremity. She will move her right knee to prevent stiffness. She will use thromboembolic deterrent (ESTEFANI) stockings for 30 days postoperatively for deep vein thrombosis (DVT) prophylaxis. She will use oral pain medications for pain control. She will also use Xarelto 10 mg per the protocol for DVT prophylaxis. She will resume her preoperative medications and diet. She will follow up in our office in 10-14 days for surgical followup. She is given instructions to include, but not limited to, wound monitoring activity limitations. Please refer to the medical record for further details.
== END 2019-08-01 14:31 | disposition home or self-care (01) | DRG 470 ==
LOC: M OR 08:05 → M MS5PR 16:35
PROVIDERS: ADMIT Orthopaedic Surgery; ATTEND Orthopaedic Surgery
PROC: 0SRC0J9 Replacement of Right Knee Joint with Synthetic Substitute, Cemented, Open Approach (ICD-10-PCS; principal; 2019-07-31 12:15)
DX: M17.11 Unilateral primary osteoarthritis, right knee (principal); I10 Essential (primary) hypertension; Z79.899 Other long term (current) drug therapy; Z88.6 Allergy status to analgesic agent; Z91.040 Latex allergy status; E78.5 Hyperlipidemia, unspecified; Z96.641 Presence of right artificial hip joint; Z96.611 Presence of right artificial shoulder joint; Z96.612 Presence of left artificial shoulder joint; R29.6 Repeated falls; G47.33 Obstructive sleep apnea (adult) (pediatric); K74.60 Unspecified cirrhosis of liver; G62.9 Polyneuropathy, unspecified

== ENCOUNTER → 2019-10-31 | Outpatient (CLI) | payer MEDICARE ==
[~2019-10-31] MED LIST changes: -ACETAMINOPHEN 500 MG TAB PO ONE; +K-TA10TA PO; -LIDOCAINE 1% MDV 20ML VIAL SQ PRN; -LR 1,000 ML IV ONE; +MELA3TAB49 PO; -MIDAZOLAM INJ 2 MG/2 ML VIAL (J2250) IV SCH; +XARE10TA PO; -ceFAZolin SOD 2 GM in IV 1 EA IV ONE; -fentaNYL 100 MCG/2 ML INJECTION (J3010) IV SCH
--- NOTE | 2019-11-02 01:44 | ECWPNPC ---
PATIENT NAME: WENDY MATHIAS V : 1940 GENDER: FEMALE VISIT DATE: 10/31/2019 DISCHARGE DATE: 10/31/19 1423 VISIT LOCKED DATE TIME: PHYSICIAN: PAO HATFIELD RESOURCE: PAO HATFIELD REASON FOR APPOINTMENT 1. CHRONIC PAIN HISTORY OF PRESENT ILLNESS HISTORY OF PRESENT ILLNESS: PAIN THE PATIENT DESCRIBES THE PAIN... 79-YEAR-OLD FEMALE IN FOR CHRONIC PAIN FOLLOW-UP. SHE RATES HER PAIN CURRENTLY AT A 0 OUT OF 10 BUT DOES STATE THE PAIN VARIES AND WHEN SHE EXPRESSES PAIN DESCRIBES IT ACHING. FALL RISK SCREENING: SCREENING :NO FALLS REPORTED IN THE LAST YEAR CURRENT MEDICATIONS TAKING LOSARTAN POTASSIUM 100 MG TABLET 1 TABLET ORALLY ONCE A DAY TAKING AMLODIPINE BESYLATE 10 MG TABLET 1 TABLET ORALLY ONCE A DAY TAKING HYDROCHLOROTHIAZIDE 25 MG TABLET 1 TABLET IN THE MORNING ORALLY ONCE A DAY TAKING ATENOLOL 50 MG TABLET 1 TABLET ORALLY ONCE A DAY AT BEDTIME TAKING ATORVASTATIN CALCIUM 20 MG TABLET 1 TABLET ORALLY ONCE A DAY AT BEDTIME TAKING CALCIUM 1 TAB ORAL DAILY TAKING MAGNESIUM 100 MG TABLET 4 TABLETS WITH A MEAL ORALLY ONCE A DAY TAKING LUTEIN 20 - CAPSULE ORALLY DAILY, NOTES: NOT LATELY TAKING VITAMIN E 400 UNIT CAPSULE 1 CAPSULE ORALLY ONCE A DAY TAKING OMEGA 3 1000 MG CAPSULE 1 CAPSULE ORALLY ONCE A DAY TAKING MELATONIN 3 MG TABLET 1 TABLET AT BEDTIME NEEDED WITH FOOD ORALLY ONCE A DAY TAKING MAY USE CBD OIL GUMMIES ORALLY PRN TAKING POTASSIUM CHLORIDE ER 10 MEQ TABLET EXTENDED RELEASE 1 TABLET WITH FOOD ORALLY TWICE A DAY TAKING GABAPENTIN 100 MG CAPSULE 1 CAPSULE ORALLY FOR PAIN BEFORE BEDTIME NOT-TAKING VISION VITAMINS - TABLET ORALLY DAILY NOT-TAKING ACETAMINOPHEN ER 650 MG TABLET EXTENDED RELEASE 2 TABLETS NEEDED ORALLY EVERY 8 HRS NOT-TAKING CELECOXIB 200 MG CAPSULE 1 CAPSULE WITH FOOD ORALLY ONCE A DAY, NOTES: NOT LATELY NOT-TAKING ACETAMINOPHEN PM 500-25 MG TABLET 1 TABLET AT BEDTIME NEEDED ORALLY ONCE A DAY, NOTES: NOT LATELY NOT-TAKING VITAMIN D-3 5000 UNIT TABLET 1 TABLET ORALLY ONCE A DAY MEDICATION LIST REVIEWED AND RECONCILED WITH THE PATIENT PAST MEDICAL HISTORY HYPERTENSION CHRONIC DRY EYE PSORIASIS ARTHRITIS HYPERLIPIDEMIA OBESITY CLIFFORD FRACTURE COCCYX AGE 11 ALLERGIES LACTOSE: NAUSEA/VOMITING - ALLERGY ASPIRIN: PRICKLY SENSATION IN ABDOMEN - SIDE EFFECTS BAND-AID: SKIN REACTION - SIDE EFFECTS SURGICAL HISTORY HYSTERECTOMY BLADDER REPAIR BOWEL SURGERY RIGHT HIP 2016 RIGHT SHOULDER REPLACEMENT 2017 LEFT SHOULDER REPLACEMENT 2017 RIGHT KNEE REPLACEMENT 07/2019 FAMILY HISTORY FATHER: , DIAGNOSED WITH HYPERTENSION, UNSPECIFIED HEART DISEASE MOTHER: , OTHER MALIGNANT NEOPLASM OF UNSPECIFIED SITE SISTER - DUE TO DM. SOCIAL HISTORY GENERAL: TOBACCO USE ARE YOU A:NONSMOKER PAIN CLINIC PFS, CLERGY, PUBLIC HEALTH REFERRALS WAS THE PROVIDER NOTIFIED OF ANY PERTINENT INFO?YES HAS THE PATIENT BEEN EDUCATED REGARDING HIS/HER PLAN OF CARE?YES HAS THE PATIENT BEEN EDUCATED REGARDING PAIN, THE RISK FOR PAIN, THE IMPORTANCE OF EFFECTIVE PAIN MANAGEMENT, AND THE PAIN ASSESSMENT PROCESS?YES LATEX QUESTIONNAIRE LATEX ALLERGY : HAVE YOU EVER DEVELOPED ANY TYPE OF REACTION AFTER HANDLING LATEX PRODUCTS SUCH RUBBER GLOVES, CONDOMS, DIAPHRAGMS, BALLOONS, SOCKS, OR UNDERWEAR?YES - PLEASE INDICATE :OTHER (DOCUMENT IN NOTES) BANDAIDS CAUSE SEVERE SKIN REACTION LATEX ALLERGY : HAVE YOU EVER DEVELOPED ANY TYPE OF REACTION DURING OR AFTER DENTAL APPOINTMENT, VAGINAL/RECTAL EXAMINATION, SURGICAL PROCEDURE, OR ANY OTHER EXPOSURE?NO LATEX RISK : HAVE YOU EVER HAD ANY DIFFICULTY BREATHING OR HIVES AFTER EATING OR HANDLING ANY FRUITS, OR VEGETABLES; SUCH KIWI, BANANAS, STONE FRUITS, OR CHESTNUTSNO LATEX RISK : DO YOU HAVE A PREVIOUS PERSONAL HISTORY OF MORE THAN NINE SURGERIES, SPINA BIFIDA, OR REPEATED CATHERIZATIONS? NO LATEX RISK : ARE YOU FREQUENTLY EXPOSED TO LATEX PRODUCTS IN YOUR OCCUPATION?NO DATE ASKED : 10/31/2019 ADVANCE DIRECTIVE ADVANCE DIRECTIVE DISCUSSED WITH PATIENT:YES HCP ENA MATHIAS DIET: REGULAR, MINIMAL DAIRY. RELIGIOUS [id number] CONGREGATIONAL NO EVANGELICAL BELIEFS THAT WOULD IMPACT HEALTH CARE. LANGUAGE LANGUAGES SPOKEN:KYRGYZ MARITAL STATUS: . 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 HOSPITALIZATION/MAJOR DIAGNOSTIC PROCEDURE SURGERIES SURGERY RELATED 07/2019 REVIEW OF SYSTEMS REVIEWED BY: PROVIDER: MARY ANN . CONSTITUTIONAL: ANY CHANGE IN YOUR MEDICAL CONDITION? NO . CHILLS NO . FEVER NO . INFECTION: DO YOU HAVE NEW INFECTIONS? NO . DO YOU HAVE HISTORY OF MRSA? NO . MUSCULOSKELETAL: ANY NEW PATTERNS OF PAIN OR NUMBNESS? NO . GASTROENTEROLOGY: ANY NEW CHANGE IN BOWEL CONTROL? NO . GENITOURINARY: ANY NEW CHANGE IN BLADDER CONTROL? NO . IS THERE A CHANCE YOU COULD BE ? NO . HEMATOLOGY/LYMPH: DO YOU TAKE ANY BLOOD THINNERS? (FOR EXAMPLE- COUMADIN, PLAVIX, AGGRENOX, PLATEL, PRADAXA, OR XARELTO) NO . WHEN WAS YOUR LAST DOSE? DATE: TIME: . NEUROLOGY: HAVE YOU FALLEN IN THE PAST 12 MONTHS? NO . ANY NEW EXTREMITY NUMBNESS OR WEAKNESS? NO . CARDIOLOGY: DO YOU HAVE A PACEMAKER OR DEFIBRILLATOR? NO . RESPIRATORY: HAVE YOU BEEN SICK IN THE PAST WEEK? NO . FEVER NO . FLU LIKE SYMPTOMS? NO . COUGH NO . INTEGUMENTARY: DO YOU HAVE ANY RASHES OR OPEN SORES? NO . ALLERGIC/IMMUNO: ARE YOU ALLERGIC TO IV DYE? NO . ANY NEW ALLERGIES? NO . PSYCHIATRIC: DO YOU HAVE THOUGHTS OF HURTING YOURSELF OR SOMEONE ELSE? NO . ARE YOU ABUSED, NEGLECTED, OR IN AN UNSAFE ENVIRONMENT? NO . ENDOCRINOLOGY: ARE YOU DIABETIC? NO . OTHER: DO YOU NEED ANY PRESCRIPTIONS? NO . IF YES, PLEASE LIST: ____ . ANY NEW PROBLEMS WITH YOUR MEDICATIONS? NO . WHEN DID YOU LAST EAT? ____ . WHEN DID YOU LAST DRINK? ____ . WHAT DID YOU LAST DRINK? ____ . NAME OF PERSON DRIVING YOU HOME? ____ . DO YOU HAVE ANY OTHER QUESTIONS OR CONCERNS FLU VACCINE 09/2019 . VITAL SIGNS WT 172.6 LBS, HT 61 IN, BMI 32.61 INDEX, BP 130/63 MM HG, HR 65 /MIN, RR 16 /MIN, TEMP 97.4 F, OXYGEN SAT % 96%, SAFE IN ENV? (Y/N) YES, NA INITIALS AW 1315, REVIEWED BY: ROBER. EXAMINATION GENERAL EXAMINATION: GENERALNO ACUTE DISTRESS, WELL NOURISHED AND HYDRATED. PSYCHAPPROPRIATE MOOD AND AFFECT . LUNGS:CLEAR TO AUSCULTATION BILATERALLY, NO WHEEZES, RHONCHI, RALES. HEART:NO MURMURS, REGULAR RATE AND RHYTHM. ASSESSMENTS SACROILIITIS, NOT ELSEWHERE CLASSIFIED - M46.1 (PRIMARY) TREATMENT SACROILIITIS, NOT ELSEWHERE CLASSIFIED CLINICAL NOTES: 79-YEAR-OLD FEMALE IN FOR CHRONIC PAIN FOLLOW-UP. GIVEN PRESENTING SYMPTOMS AND RESULTS OF PHYSICAL EXAMINATION RECOMMEND FOLLOW-UP IN 3 MONTHS. PATIENT HAS EXPRESSED UNDERSTANDING OF AND WAS IN AGREEMENT WITH TREATMENT PLAN. GIVEN TIME TO ASK QUESTIONS AND EXPRESS CONCERNS. PROCEDURE CODES FA211 ESTABILISHED PATIENT [facility] CHARGE DISPOSITION & COMMUNICATION FOLLOW UP 3 MONTHS (REASON: SACROILIITIS) ELECTRONICALLY SIGNED BY BHARAT CHENEY ON 11/01/2019 AT 11:03 AM EST DISCLAIMER : THIS IS A VISIT SUMMARY EXTRACTED FROM THE [employer] CHART. IT IS NOT A COPY OF THE [employer] PROGRESS NOTE. DAVID
== END ==
LOC: M PAIN 13:00
PROVIDERS: ATTEND Family Medicine
DX: M46.1 Sacroiliitis, not elsewhere classified (principal); G89.29 Other chronic pain; I10 Essential (primary) hypertension; E78.5 Hyperlipidemia, unspecified; G47.33 Obstructive sleep apnea (adult) (pediatric); Z96.611 Presence of right artificial shoulder joint; Z96.612 Presence of left artificial shoulder joint; Z96.651 Presence of right artificial knee joint; Z88.6 Allergy status to analgesic agent; Z91.011 Allergy to milk products; Z91.09 Other allergy status, other than to drugs and biological substances; Z79.899 Other long term (current) drug therapy

== ENCOUNTER → 2020-08-06 | Outpatient (CLI) | payer MEDICARE ==
[~2020-08-06] MED LIST changes: -AMLO10TA5 PO; +AMLO1TAB25 PO; -VITA400C5 PO; +VITA400C83 PO
[2020-08-06 11:04] LABS: PLATELET COUNT, AUTOMATED 289 10^3/uL (150-450)
[2020-08-06 11:14] LABS: INR 0.88; PROTHROMBIN TIME 12.1 SECONDS (12.5-14.3)
[2020-08-06 11:15] LABS: PARTIAL THROMBOPLASTIN TIME 27.4 SECONDS (24.2-38.5)
[2020-08-06 11:50] LABS: COLLAGEN EPINEPHRINE 88 SECONDS (74-162)
== END ==
LOC: M LAB 10:38
PROVIDERS: ATTEND Physician Assistant
DX: M47.817 Spondylosis without myelopathy or radiculopathy, lumbosacral region (principal)

== ENCOUNTER → 2022-02-26 | Outpatient (REF) | payer MEDICARE ==
[~2022-02-26] MED LIST changes: +ACET32TAB PO; +AMLO1TAB24 PO; +CHOL50003 PO; +EZET10TA21; +FURO40TA2 PO; +HAIRTAB10 PO; +HYDR-3490 PO; -HYDR25TAB PO; +LOSA100T45 PO; -LOSA100T50 PO; +MELA3TAB30 PO; -NON-325T5 PO; +TIZA2TA PO; +VITA400C56 PO
[2022-02-26 15:24] LABS: HEMATOCRIT 39.8 % (36.0-47.0); HEMOGLOBIN 12.9 g/dl (12.0-15.5); MEAN CORPUSCULAR HEMOGLOBIN 31.2 pg (27.0-33.0); MEAN CORPUSCULAR HGB CONC 32.4 g/dl (32.0-36.5); MEAN CORPUSCULAR VOLUME 96.1 fl (80.0-96.0); PLATELET COUNT, AUTOMATED 416 10^3/uL (150-450); RED BLOOD COUNT 4.14 10^6/uL (4.00-5.40); WHITE BLOOD COUNT 4.3 10^3/uL (4.0-10.0)
[2022-02-26 15:59] LABS: ALBUMIN 3.4 GM/DL (3.2-5.2); ALT/SGPT 27 U/L (12-78); BILIRUBIN,TOTAL 0.5 MG/DL (0.2-1.0); BLOOD UREA NITROGEN 14 MG/DL (7-18); CALCIUM LEVEL 9.5 MG/DL (8.8-10.2); CARBON DIOXIDE LEVEL 30 MEQ/L (21-32); CHLORIDE LEVEL 106 MEQ/L (98-107); CREATININE FOR GFR 0.88 MG/DL (0.55-1.30); GLOMERULAR FILTRATION RATE > 60.0 (>32); GLUCOSE, FASTING 115 MG/DL (70-100); NT-PRO BNP 289 PG/ML (<450); POTASSIUM SERUM 4.5 MEQ/L (3.5-5.1); SODIUM LEVEL 140 MEQ/L (136-145)
== END ==
LOC: M SHH 14:59
PROVIDERS: ATTEND Nurse Practitioner Family
DX: J18.9 Pneumonia, unspecified organism (principal); I10 Essential (primary) hypertension

== ENCOUNTER 2022-05-19 11:16 | Emergency (ER) | payer MEDICARE ==
[~2022-05-19] VITALS: Ht 154.9 cm; Wt 73.6 kg
[2022-05-19] MEDS ORDERED: EZET10TA21 (11:46)
[2022-05-19] MEDS ORDERED: IPRATROPIUM 0.5MG/ALBUTEROL 2.5MG INH SOL UD 3ML (DUONEB) NEB ONE (12:00)
[2022-05-19] MEDS ORDERED: methylPREDNISolone 125MG 2ML VIAL IV ONE (13:00)
[2022-05-19 13:39] LABS: BASO % 0.3 % (0.0-1.0); EOS % 0.1 % (0.0-3.0); HEMATOCRIT 40.2 % (36.0-47.0); HEMOGLOBIN 13.5 g/dl (12.0-15.5); LYMPH # 1.4 10^3/uL (1.5-5.0); LYMPH % 13.4 % (24.0-44.0); MEAN CORPUSCULAR HEMOGLOBIN 31.9 pg (27.0-33.0); MEAN CORPUSCULAR HGB CONC 33.6 g/dl (32.0-36.5); MONO % 9.7 % (2.0-8.0); NEUTROPHILS # 8.2 10^3/uL (1.5-8.5); NEUTROPHILS % 76.1 % (36.0-66.0); PLATELET COUNT, AUTOMATED 254 10^3/uL (150-450); RED BLOOD COUNT 4.23 10^6/uL (4.00-5.40); WHITE BLOOD COUNT 10.7 10^3/uL (4.0-10.0)
[2022-05-19 14:12] LABS: CK-MB VALUE MASS < 1.0 NG/ML (<3.6); CPK CREATINE PHOSPHOKINASE 38 U/L (26-192); MB/CK RELATIVE INDEX 2.63 (< OR =4)
[2022-05-19 14:17] LABS: ALBUMIN 3.3 GM/DL (3.2-5.2); ALT/SGPT 37 U/L (12-78); BILIRUBIN,DIRECT 0.4 MG/DL (0.0-0.2); BILIRUBIN,TOTAL 1.1 MG/DL (0.2-1.0); BLOOD UREA NITROGEN 11 MG/DL (7-18); CALCIUM LEVEL 9.6 MG/DL (8.8-10.2); CARBON DIOXIDE LEVEL 25 MEQ/L (21-32); CHLORIDE LEVEL 107 MEQ/L (98-107); CREATININE FOR GFR 0.75 MG/DL (0.55-1.30); GLOMERULAR FILTRATION RATE > 60.0 (>32); GLUCOSE, FASTING 94 MG/DL (70-100); NT-PRO BNP 915 PG/ML (<450); POTASSIUM SERUM 3.8 MEQ/L (3.5-5.1); SODIUM LEVEL 141 MEQ/L (136-145); THYROID STIMULATING HORMONE 0.993 uIU/ML (0.358-3.740); THYROXINE (T4) 6.6 UG/DL (4.5-12.0); TOTAL PROTEIN 6.8 GM/DL (6.4-8.2)
[2022-05-19 15:01] LABS: CK-MB VALUE MASS < 1.0 NG/ML (<3.6); CPK CREATINE PHOSPHOKINASE 34 U/L (26-192); MB/CK RELATIVE INDEX 2.94 (< OR =4)
[2022-05-19] MEDS ORDERED: ISOVUE-370 76% 100ML VIAL As Ordered ONE (17:24)
[2022-05-19] MEDS ORDERED: LevoFLOXacin 750 MG TABLET PO ONE (18:55)
[2022-05-19 19:01] VITALS: BP 148/64
[2022-05-19] MEDS ORDERED: LEVO750T13 PO (19:16)
[2022-05-19 19:28] VITALS: O2SAT 94
== END 2022-05-19 19:29 | disposition home or self-care (01) ==
LOC: M ED 11:16
DX: J18.9 Pneumonia, unspecified organism (principal); I71.2 Thoracic aortic aneurysm, without rupture; I10 Essential (primary) hypertension; E78.5 Hyperlipidemia, unspecified; K21.9 Gastro-esophageal reflux disease without esophagitis; Z79.899 Other long term (current) drug therapy; Z88.8 Allergy status to other drugs, medicaments and biological substances; Z91.011 Allergy to milk products; Z91.040 Latex allergy status; Z91.048 Other nonmedicinal substance allergy status
CPT/HCPCS: 71045; 71275; 80048; 80076; 82550; 82553; 83605; 83880; 84436; 84443; 84484; 85025; 87040; 87486; 87581; 87633; 87798; 93005; 93041; 94760; 96374; 99285; J2930; Q9967